=== PATIENT | female | born 1970 | race Caucasian/White ===

== ENCOUNTER → 2018-01-15 | Outpatient (CLI) | payer OTHER ==
--- NOTE | 2018-01-16 12:37 | MM ---
Reason for exam: screening (asymptomatic). Last mammogram was performed 2 years and 3 months ago. History: Family history of breast cancer in maternal grandmother at age 80 and breast cancer in maternal aunt at age 50. Physical Findings: A clinical breast exam by your physician is recommended on an annual basis and results should be correlated with mammographic findings. MG 3D Screening Mammo W/Cad Bilateral CC and MLO view(s) were taken. Prior study comparison: October 12, 2015, bilateral MG 3d screening mammo w/cad. September 10, 2013, bilateral digital screening mammo w/CAD. The breast tissue is extremely dense which could obscure a lesion on mammography. There is no discrete abnormality. No significant changes when compared with prior studies. ASSESSMENT: Benign, BI-RAD 2 RECOMMENDATION: Routine screening mammogram of both breasts in 1 year.
== END | disposition home or self-care (01) ==
LOC: RADMAMWWP 13:58
PROVIDERS: ATTEND Family Medicine
DX: Z12.31 Encounter for screening mammogram for malignant neoplasm of breast (principal)
CPT/HCPCS: 77063; 77067

== ENCOUNTER → 2018-10-30 | Outpatient (CLI) | payer OTHER ==
--- NOTE | 2018-10-30 15:14 | USB ---
Reason for exam: clinical finding. History: Family history of breast cancer in maternal grandmother at age 80 and breast cancer in maternal aunt at age 50. Physical Findings: Nurse Summary: 1cm movable nodule (nurse eze). US Breast LT Left complete breast ultrasound includes all four quadrants, the retroareolar region and axilla. Finding demonstrates a 1.1 x 0.6 x 1.1cm cystic lesion at 12 o'clock and a 0.5 x 0.2 x 0.4cm cystic lesion too small to characterize at 2 o'clock. These results were verbally communicated with the patient and result sheet given to the patient on 10/30/18. ASSESSMENT: Benign, BI-RAD 2 RECOMMENDATION: Return to routine screening mammogram schedule for both breasts. Back on schedule for December 2018.
== END | disposition home or self-care (01) ==
LOC: RADUSWWP 14:03
PROVIDERS: ATTEND Family Medicine
DX: N64.4 Mastodynia (principal)

== ENCOUNTER → 2019-02-25 | Outpatient (CLI) | payer OTHER ==
--- NOTE | 2019-02-27 09:28 | MM ---
Reason for exam: screening (asymptomatic). Last mammogram was performed 1 year and 1 month ago. History: Family history of breast cancer in maternal grandmother at age 80 and breast cancer in maternal aunt at age 50. Physical Findings: A clinical breast exam by your physician is recommended on an annual basis and results should be correlated with mammographic findings. MG 3D Screening Mammo W/Cad Bilateral CC and MLO view(s) were taken. Prior study comparison: January 15, 2018, bilateral MG 3d screening mammo w/cad. October 12, 2015, bilateral MG 3d screening mammo w/cad. The breast tissue is extremely dense which could obscure a lesion on mammography. No significant changes when compared with prior studies. ASSESSMENT: Benign, BI-RAD 2 RECOMMENDATION: Routine screening mammogram of both breasts in 1 year.
== END | disposition home or self-care (01) ==
LOC: RADMAMWWP 14:56
PROVIDERS: ATTEND Family Medicine
DX: Z12.31 Encounter for screening mammogram for malignant neoplasm of breast (principal)
CPT/HCPCS: 77063; 77067

== ENCOUNTER 2019-11-19 16:50 | Observation (INO) | payer OTHER ==
[2019-11-19] MEDS ORDERED: SODIUM CHLORIDE 0.9% 1,000 ML IV STA ×2 (17:13)
[2019-11-19] MEDS ORDERED: ONDANSETRON 4 MG/2 ML VIAL IVP STA (17:13)
[2019-11-19] MEDS ORDERED: HYDROmorphone 1 MG/ML 1 ML SYRINGE IVP STA ×2 (17:13→19:03)
[2019-11-19] MEDS ORDERED: PANTOPRAZOLE 40 MG/10 ML VIAL IVP STA (17:13)
[2019-11-19 17:27] LABS: Basophils # (A) 0.1 k/uL (0-0.2); Basophils % (A) 1 %; Eosinophils # (A) 0.5 k/uL (0-0.7); Eosinophils % (A) 4 %; HCT 42.5 % (34.0-46.0); HGB 13.8 gm/dL (11.4-16.0); Lymphocytes # (A) 3.9 k/uL (1.0-4.8); Lymphocytes % (A) 30 %; MCH 28.2 pg (25.0-35.0); MCHC 32.3 g/dL (31.0-37.0); MCV 87.3 fL (80.0-100.0); Mean Platelet Volume 8.7; Monocytes # (A) 0.5 k/uL (0-1.0); Monocytes % (A) 4 %; Neutrophils # (A) 8.1 k/uL (1.3-7.7); Neutrophils % (A) 62 %; Platelet Count 354 k/uL (150-450); RBC 4.88 m/uL (3.80-5.40); RDW 12.9 % (11.5-15.5)
--- NOTE | 2019-11-19 17:31 | ED ---
Abdominal Pain HPI <Elfego Isaac - Last Filed: 11/19/19 20:54> - General Source: patient, RN notes reviewed, old records reviewed Mode of arrival: wheelchair Limitations: no limitations <Darcy Elizabeth - Last Filed: 11/20/19 15:35> - General Chief Complaint: Abdominal Pain Stated Complaint: Abd Pain Time Seen by Provider: 11/19/19 16:59 - History of Present Illness Initial Comments: This Patient is a 49-year-old female who presents emergency department today for evaluation with severe right upper quadrant abdominal pain cramping. She reports pain with extending the diaphragm and taking a deep breath. She reports the pain seems to be worse after eating. She states that he became acutely w orse after eating spaghetti last night. Patient denies any fevers or chills. Does complain of some mild nausea. She denies any significant changes in urine or bowel habits. Patient's surgical history includes hysterectomy. (Darcy Elizabeth) - Related Data Home Medications Medication Instructions Recorded Confirmed Albuterol Nebulized [Ventolin 2.5 mg INHALATION RT-TID PRN 11/19/19 11/19/19 Nebulized] Diphenox-Atrop 2.5-0.025 mg 1 tab PO QID PRN 11/19/19 11/19/19 [Lomotil] Levocetirizine Dihydrochloride 5 mg PO DAILY 11/19/19 11/19/19 [Xyzal] Montelukast [Singulair] 10 mg PO DAILY 11/19/19 11/19/19 Allergies Allergy/AdvReac Type Severity Reaction Status Date / Time almond Allergy Anaphylaxis Verified 11/19/19 20:56 cashew nut Allergy Anaphylaxis Verified 11/19/19 20:56 shellfish derived [Shellfish] Allergy Anaphylaxis Verified 11/19/19 20:56 Review of Systems ROS Other: All systems not noted in ROS Statement are negative. <Elfego Isaac - Last Filed: 11/19/19 20:54> ROS Other: All systems not noted in ROS Statement are negative. <Darcy Elizabeth - Last Filed: 11/20/19 15:35> ROS Statement: Those systems with pertinent positive or pertinent negative responses have been documented in the HPI. Past Medical History Past Medical History: Asthma Additional Past Medical History / Comment(s): seasonal allgeries, diarrhea History of Any Multi-Drug Resistant Organisms: None Reported Past Surgical History: Ear Surgery, Hysterectomy Past Psychological History: No Psychological Hx Reported Smoking Status: Never smoker Past Alcohol Use History: None Reported Past Drug Use History: None Reported <Darcy Elizabeth - Last Filed: 11/20/19 15:35> General Exam Limitations: no limitations General appearance: alert, in no apparent distress Head exam: Present: atraumatic, normocephalic, normal inspection Eye exam: Present: normal appearance, PERRL, EOMI. Absent: scleral icterus, conjunctival injection, periorbital swelling ENT exam: Present: normal exam, mucous membranes moist Neck exam: Present: normal inspection. Absent: tenderness, meningismus, lymphadenopathy Respiratory exam: Present: normal lung sounds bilaterally. Absent: respiratory distress, wheezes, rales, rhonchi, stridor Cardiovascular Exam: Present: regular rate, normal rhythm, normal heart sounds. Absent: systolic murmur, diastolic murmur, rubs, gallop, clicks GI/Abdominal exam: Present: soft, tenderness (Right upper quadrant tenderness), normal bowel sounds. Absent: distended, guarding, rebound, rigid Extremities exam: Present: normal inspection, full ROM, normal capillary refill. Absent: tenderness, pedal edema, joint swelling, calf tenderness Back exam: Present: normal inspection Neurological exam: Present: alert, oriented X3, CN II-XII intact Psychiatric exam: Present: normal affect, normal mood Skin exam: Present: warm, dry, intact, normal color. Absent: rash <MeshakatymagyDarcy - Last Filed: 11/20/19 15:35> Course Vital Signs 11/19/19 11/19/19 16:51 20:55 Temperature 98.4 F 98.4 F Pulse Rate 103 H 78 Respiratory 18 16 Rate Blood Pressure 139/86 129/78 O2 Sat by Pulse 100 98 Oximetry Medical Decision Making - Lab Data Result diagrams: 11/19/19 17:10 11/19/19 17:10 <Elfego Isaac - Last Filed: 11/19/19 20:54> - Lab Data Result diagrams: 11/19/19 17:10 11/19/19 17:10 - Radiology Data Radiology results: report reviewed <Darcy Elizabeth - Last Filed: 11/20/19 15:35> - Medical Decision Making Patient is a 41-year-old female presents today for evaluation for 3 days of right upper quadrant abdominal pain, worse since last night. Patient received multiple doses of dilaudid and perstisted with something of pain. Labs are otherwise reviewed and unremarkable with persistent pain Patient had ultrasound which stated for any significant acute process. Patient had CT. CT results are pending at this time and Patient signed out Dr. Isaac. (Darcy Elizabeth) - Lab Data Lab Results 11/19/19 11/19/19 11/19/19 Range/Units 17:10 17:10 17:10 WBC 13.0 H (3.8-10.6) k/uL RBC 4.88 (3.80-5.40) m/uL Hgb 13.8 (11.4-16.0) gm/dL Hct 42.5 (34.0-46.0) % MCV 87.3 (80.0-100.0) fL MCH 28.2 (25.0-35.0) pg MCHC 32.3 (31.0-37.0) g/dL RDW 12.9 (11.5-15.5) % Plt Count 354 (150-450) k/uL Neutrophils % 62 % Lymphocytes % 30 % Monocytes % 4 % Eosinophils % 4 % Basophils % 1 % Neutrophils # 8.1 H (1.3-7.7) k/uL Lymphocytes # 3.9 (1.0-4.8) k/uL Monocytes # 0.5 (0-1.0) k/uL Eosinophils # 0.5 (0-0.7) k/uL Basophils # 0.1 (0-0.2) k/uL PT 9.5 (9.0-12.0) sec INR 0.9 (<1.2) APTT 23.7 (22.0-30.0) sec Sodium 138 (137-145) mmol/L Potassium 3.8 (3.5-5.1) mmol/L Chloride 101 (98-107) mmol/L Carbon Dioxide 29 (22-30) mmol/L Anion Gap 8 mmol/L BUN 10 (7-17) mg/dL Creatinine 0.75 (0.52-1.04) mg/dL Est GFR (CKD-EPI)AfAm >90 (>60 ml/min/1.73 sqM) Est GFR (CKD-EPI)NonAf >90 (>60 ml/min/1.73 sqM) Glucose 84 (74-99) mg/dL Calcium 9.7 (8.4-10.2) mg/dL Total Bilirubin 0.4 (0.2-1.3) mg/dL AST 18 (14-36) U/L ALT 15 (4-34) U/L Alkaline Phosphatase 62 (38-126) U/L Troponin I (0.000-0.034) ng/mL Total Protein 7.2 (6.3-8.2) g/dL Albumin 4.3 (3.5-5.0) g/dL Amylase 50 (30-110) U/L Lipase 73 (23-300) U/L Urine Color Urine Appearance (Clear) Urine pH (5.0-8.0) Ur Specific [place] (1.001-1.035) Urine Protein (Negative) Urine Glucose (UA) (Negative) Urine Ketones (Negative) Urine Blood (Negative) Urine Nitrite (Negative) Urine Bilirubin (Negative) Urine Urobilinogen (<2.0) mg/dL Ur Leukocyte Esterase (Negative) 11/19/19 11/19/19 Range/Units 17:10 18:34 WBC (3.8-10.6) k/uL RBC (3.80-5.40) m/uL Hgb (11.4-16.0) gm/dL Hct (34.0-46.0) % MCV (80.0-100.0) fL MCH (25.0-35.0) pg MCHC (31.0-37.0) g/dL RDW (11.5-15.5) % Plt Count (150-450) k/uL Neutrophils % % Lymphocytes % % Monocytes % % Eosinophils % % Basophils % % Neutrophils # (1.3-7.7) k/uL Lymphocytes # (1.0-4.8) k/uL Monocytes # (0-1.0) k/uL Eosinophils # (0-0.7) k/uL Basophils # (0-0.2) k/uL PT (9.0-12.0) sec INR (<1.2) APTT (22.0-30.0) sec Sodium (137-145) mmol/L Potassium (3.5-5.1) mmol/L Chloride (98-107) mmol/L Carbon Dioxide (22-30) mmol/L Anion Gap mmol/L BUN (7-17) mg/dL Creatinine (0.52-1.04) mg/dL Est GFR (CKD-EPI)AfAm (>60 ml/min/1.73 sqM) Est GFR (CKD-EPI)NonAf (>60 ml/min/1.73 sqM) Glucose (74-99) mg/dL Calcium (8.4-10.2) mg/dL Total Bilirubin (0.2-1.3) mg/dL AST (14-36) U/L ALT (4-34) U/L Alkaline Phosphatase (38-126) U/L Troponin I <0.012 (0.000-0.034) ng/mL Total Protein (6.3-8.2) g/dL Albumin (3.5-5.0) g/dL Amylase (30-110) U/L Lipase (23-300) U/L Urine Color Light Yellow Urine Appearance Clear (Clear) Urine pH 7.0 (5.0-8.0) Ur Specific [place] 1.008 (1.001-1.035) Urine Protein Negative (Negative) Urine Glucose (UA) Negative (Negative) Urine Ketones Negative (Negative) Urine Blood Negative (Negative) Urine Nitrite Negative (Negative) Urine Bilirubin Negative (Negative) Urine Urobilinogen <2.0 (<2.0) mg/dL Ur Leukocyte Esterase Negative (Negative) 11/19/19 18:35 EKG performed at 8:21 AM shows normal sinus rhythm and to add malate considering anterior ischemia. Ventricular rate of 90 bpm. Pulse 152 ms. QS duration 82 ms. QT QTc is 404/4 and 94 ms. (Darcy Elizabeth) - Radiology Data Ultrasound shows limited exam without distinct Normal he appreciated. Common bowel duct is 0.357 m. Gallbladder wall 0.29. Patient has positive Preston sign on ultrasound. (Darcy Elizabeth) Disposition Time of Disposition: 20:54 <Elfego Isaac - Last Filed: 11/19/19 20:54> <Darcy Elizabeth - Last Filed: 11/20/19 15:35> Clinical Impression: Right upper quadrant abdominal pain Disposition: ADMITTED IP TO THIS HOSP
[2019-11-19 17:36] LABS: INR 0.9 (<1.2); Partial Thromboplastin Time 23.7 sec (22.0-30.0); Prothrombin Time 9.5 sec (9.0-12.0)
[2019-11-19 17:38] LABS: ALT 15 U/L (4-34); AST 18 U/L (14-36); African American GFR (CKD) >90 (>60 ml/min/1.73 sqM); Albumin 4.3 g/dL (3.5-5.0); Alkaline Phosphatase 62 U/L (38-126); Amylase 50 U/L (30-110); Anion Gap 8 mmol/L; Blood Urea Nitrogen 10 mg/dL (7-17); Calcium 9.7 mg/dL (8.4-10.2); Carbon Dioxide 29 mmol/L (22-30); Chloride 101 mmol/L (98-107); Glucose 84 mg/dL (74-99); Non-African American GFR(CKD) >90 (>60 ml/min/1.73 sqM); Potassium 3.8 mmol/L (3.5-5.1); Sodium 138 mmol/L (137-145); Total Bilirubin 0.4 mg/dL (0.2-1.3); Total Protein 7.2 g/dL (6.3-8.2)
[2019-11-19 18:38] LABS: Appearance,Urine Clear (Clear); Bilirubin,Urine Negative (Negative); Blood,Urine Negative (Negative); Color,Urine Light Yellow; Glucose,Urine (UA) Negative (Negative); Ketones,Urine Negative (Negative); Leukocyte Esterase,Urine Negative (Negative); Nitrite,Urine Negative (Negative); Protein,Urine Negative (Negative); Specific Gravity,Urine 1.008 (1.001-1.035); Urobilinogen,Urine <2.0 mg/dL (<2.0)
--- NOTE | 2019-11-19 18:42 | US ---
EXAMINATION TYPE: US gallbladder DATE OF EXAM: 11/19/2019 COMPARISON: NONE CLINICAL HISTORY: RUQ pain. RUQ pain x 3 days. EXAM MEASUREMENTS: Liver Length: 16.2 cm Gallbladder Wall: 0.29 cm CBD: 0.35 cm Right Kidney: 10.4 x 5.1 x 4.4 cm Limited exam due to overlying bowel gas. Pancreas: Limited visibility Liver: No abnormalities seen at this time, slightly limited. Gallbladder: Limited due to gas. Evidence for sonographic Preston's sign: Yes CBD: Limited. Right Kidney: No hydronephrosis or masses seen IMPRESSION: 1. Limited examination without distinct abnormality appreciated.
[2019-11-19] MEDS ORDERED: methylPREDNISolone SOD SUCCI 125 MG/2 ML VIAL IV STA (19:10)
[2019-11-19] MEDS ORDERED: diphenhydrAMINE 50 MG/ML 1 ML VIAL IVP STA (19:10)
[2019-11-19] MEDS ORDERED: FAMOTIDINE 20 MG/2 ML VIAL IV STA (19:10)
--- NOTE | 2019-11-19 20:01 | CT ---
EXAMINATION TYPE: CT abdomen pelvis w con DATE OF EXAM: 11/19/2019 COMPARISON: None HISTORY: RUQ pain CT DLP: 1265.4 mGycm CONTRAST: CT scan of the abdomen and pelvis is performed without Oral Contrast and with IV Contrast, patient in jected with 100 mL of Isovue 300. FINDINGS: LUNG BASES-: No visible nodule. No infiltrate. Small fixed hiatal hernia. LIVER/GB: No calcified gallstones. No space occupying hepatic lesion. Biliary tree is of normal ca liber. PANCREAS: No inflammation. No distinct mass. SPLEEN: No splenic enlargement. No lesion seen. ADRENALS: No nodule. No thickening. KIDNEYS/BLADDER: No hydronephrosis. No nephrolithiasis. No distinct renal mass. Urinary bladder g rossly unremarkable. BOWEL: Normal appendix. Normal bowel caliber. No inflammation. GENITAL ORGANS: No gross abnormality. LYMPH NODES: No greater than 1cm abdominal or pelvic lymph nodes are appreciated. AORTA: No significant abnormality. OSSEOUS STRUCTURES: No significant abnormality is seen. OTHER: No significant additional abnormality is seen. IMPRESSION: 1. No acute process identified at this time.
[2019-11-19] MEDS ORDERED: SODIUM CHLORIDE 0.9% 1,000 ML IV ONE (20:54)
[2019-11-19] MEDS ORDERED: ONDANSETRON 4 MG/2 ML VIAL IVP PRN (20:55)
[2019-11-19] MEDS: HYDROmorphone 1 MG/ML 1 ML SYRINGE IVP PRN (22:54)
[2019-11-20] MEDS: HYDROmorphone 1 MG/ML 1 ML SYRINGE IVP PRN ×2 (04:51→13:10)
[2019-11-20] MEDS ORDERED: KETOROLAC 30 MG/ML 1 ML VIAL IVP PRN (09:37)
--- NOTE | 2019-11-20 09:38 | P.GSHP ---
<Thuy Loomis A - Last Filed: 11/20/19 09:32> History of Present Illness H&P Date: 11/20/19 Chief Complaint: Abdominal pain CHIEF COMPLAINT: Abdominal pain HISTORY OF PRESENT ILLNESS: 49-year-old female who presented to the emergency room with chief complaint of abdominal pain. Patient reports she began having abdominal pain Sunday evening after dinner. She reports eating baked chicken and broccoli for dinner. She states her pain got a little bit better Sunday but by Sunday afternoon was excruciating. She states initially she thought this was related to heartburn and took some Tums. She continues to report right upper quadrant pain is morning. She states the pain is worse when she takes a deep breath. She reports mild nausea this morning. Denies vomiting. Denies diarrhea or constipation. Patient denies intolerance to gre asy or fatty foods. She denies previous gallbladder issues or family history of gallbladder disease. PAST MEDICAL HISTORY: See list. PAST SURGICAL HISTORY: See list. MEDICATIONS: See list. ALLERGIES: See list. SOCIAL HISTORY: No illicit drug use. REVIEW OF SYSTEMS: CONSTITUTIONAL: Denies fever or chills. HEENT: Denies blurred vision, vision changes, or eye pain. Denies hemoptysis ENDOCRINE: Denies heat or cold intolerance. CARDIOVASCULAR: Denies chest pain or pressure. RESPIRATORY: No shortness of breath. GASTROINTESTINAL: See HPI for pertinent findings NEURO: Denies history of seizures. PSYCH: No depression or suicidal ideation HEMATOLOGIC: Denies bleeding disorders. LYMPHATIC: The patient denies any lumps and bumps around the neck. GENITOURINARY: Denies any blood in urine or increased urinary frequency. MUSCULOSKELETAL: Denies myalgias. Denies joint swelling. Denies decreased range of motion beyond patients baseline. SKIN: Denies pruitis. Denies rash. PHYSICAL EXAM: VITAL SIGNS: Reviewed GENERAL: Well-developed in no acute distress. HEENT: No sclera icterus. Extraocular movements grossly intact. Moist buccal mucosa. Head is atraumatic, normocephalic. Hears conversational speech. No nasal drainage. NECK: Supple without lymphadenopathy. CHEST: Non-labored respirations and equal bilateral excursions. CARDIOVASCULAR: Regular rate with regular rhythm. Palpable 2+ radial pulses. ABDOMEN: Soft. Nondistended. Tenderness with palpation to right upper quadrant MUSCULOSKELETAL: No clubbing or cyanosis. NEUROLOGIC: No focal or lateralizing signs. Cranial nerves II through XII grossly intact. PSYCH: Appropriate affect. Alert and oriented to person, place and time. SKIN: Well perfused. Good skin turgor. LABORATORY DATA: WBC 13.0. Hemoglobin 13.8. Platelet count 354. Sodium 138. Potassium 3.8. BUN 10. Creatinine 0.75. Bilirubin 0.4. AST 18. ALT 15. IMAGING: Gallbladder ultrasound: Limited examination without distinct abnormality appreciated CT abdomen and pelvis: No calcified gallstones. No occupying hepatic lesion. Biliary tree is of normal caliber. No acute process identified. ASSESSMENT: 1. Right upper quadrant abdominal pain PLAN: -Nothing by mouth -Obtain HIDA scan with EF. Further recommendations pending results of HIDA scan Nurse practitioner note has been reviewed by physician. Signing provider agrees with the documented findings, assessment, and plan of care. Past Medical History Past Medical History: Asthma Additional Past Medical History / Comment(s): Allergies year round History of Any Multi-Drug Resistant Organisms: None Reported Past Surgical History: Ear Surgery, Hysterectomy Additional Past Surgical History / Comment(s): Right ear sinus infection - tube in place (approx. 3 years ago) Past Anesthesia/Blood Transfusion Reactions: No Reported Reaction Past Psychological History: No Psychological Hx Reported Smoking Status: Never smoker Past Alcohol Use History: None Reported Past Drug Use History: None Reported Medications and Allergies Home Medications Medication Instructions Recorded Confirmed Type Albuterol Nebulized [Ventolin 2.5 mg INHALATION RT-TID PRN 11/19/19 11/19/19 History Nebulized] Diphenox-Atrop 2.5-0.025 mg 1 tab PO QID PRN 11/19/19 11/19/19 History [Lomotil] Levocetirizine Dihydrochloride 5 mg PO DAILY 11/19/19 11/19/19 History [Xyzal] Montelukast [Singulair] 10 mg PO DAILY 11/19/19 11/19/19 History Allergies Allergy/AdvReac Type Severity Reaction Status Date / Time almond Allergy Anaphylaxis Verified 11/19/19 20:56 cashew nut Allergy Anaphylaxis Verified 11/19/19 20:56 shellfish derived [Shellfish] Allergy Anaphylaxis Verified 11/19/19 20:56 Surgical - Exam Vital Signs Temp Pulse Resp BP Pulse Ox 98.4 F 103 H 18 139/86 100 11/19/19 16:51 11/19/19 16:51 11/19/19 16:51 11/19/19 16:51 11/19/19 16:51 Results - Labs 11/19/19 17:10 11/19/19 17:10 Abnormal Lab Results - Last 24 Hours (Table) 11/19/19 Range/Units 17:10 WBC 13.0 H (3.8-10.6) k/uL Neutrophils # 8.1 H (1.3-7.7) k/uL Diabetes panel 11/19/19 Range/Units 17:10 Sodium 138 (137-145) mmol/L Potassium 3.8 (3.5-5.1) mmol/L Chloride 101 (98-107) mmol/L Carbon Dioxide 29 (22-30) mmol/L BUN 10 (7-17) mg/dL Creatinine 0.75 (0.52-1.04) mg/dL Glucose 84 (74-99) mg/dL Calcium 9.7 (8.4-10.2) mg/dL AST 18 (14-36) U/L ALT 15 (4-34) U/L Alkaline Phosphatase 62 (38-126) U/L Total Protein 7.2 (6.3-8.2) g/dL Albumin 4.3 (3.5-5.0) g/dL Calcium panel 11/19/19 Range/Units 17:10 Calcium 9.7 (8.4-10.2) mg/dL Albumin 4.3 (3.5-5.0) g/dL Pituitary panel 11/19/19 Range/Units 17:10 Sodium 138 (137-145) mmol/L Potassium 3.8 (3.5-5.1) mmol/L Chloride 101 (98-107) mmol/L Carbon Dioxide 29 (22-30) mmol/L BUN 10 (7-17) mg/dL Creatinine 0.75 (0.52-1.04) mg/dL Glucose 84 (74-99) mg/dL Calcium 9.7 (8.4-10.2) mg/dL Adrenal panel 11/19/19 Range/Units 17:10 Sodium 138 (137-145) mmol/L Potassium 3.8 (3.5-5.1) mmol/L Chloride 101 (98-107) mmol/L Carbon Dioxide 29 (22-30) mmol/L BUN 10 (7-17) mg/dL Creatinine 0.75 (0.52-1.04) mg/dL Glucose 84 (74-99) mg/dL Calcium 9.7 (8.4-10.2) mg/dL Total Bilirubin 0.4 (0.2-1.3) mg/dL AST 18 (14-36) U/L ALT 15 (4-34) U/L Alkaline Phosphatase 62 (38-126) U/L Total Protein 7.2 (6.3-8.2) g/dL Albumin 4.3 (3.5-5.0) g/dL <AurelioJoelle N - Last Filed: 11/20/19 19:16> History of Present Illness Patient seen and evaluated as above. CHIEF COMPLAINT: Right upper quadrant abdominal pain HISTORY OF PRESENT ILLNESS: The patient is a 49 year old female who reports almost a 3 day history of right upper quadrant and epigastric abdominal pain dull ache sensation. She denies any personal or family history of gallbladder disorder. She reports earlier having her HIDA scan that she had recurrent right upper quadrant abdominal pain for gallbladder assessment. Since being nothing by mouth and hospitalized, she reports her pain is still persistent. Additional diagnostic studies independently reviewed without any large gallstones identified. PAST MEDICAL HISTORY: See list. PAST SURGICAL HISTORY: See list. MEDICATIONS: See list. ALLERGIES: See list. SOCIAL HISTORY: See list. FAMILY HISTORY: See list. REVIEW OF ORGAN SYSTEMS: CONSTITUTIONAL: No fevers or chills. GASTROINTESTINAL: Has gastroesophageal reflux disease and intolerance to spicy foods PHYSICAL EXAM: VITALS: Reviewed CONSTITUTIONAL: Well developed and in no acute distress. EYES: Conjuctivae without sclera icterus. Pupils are equally round and reactive to light. Extraocular movements grossly intact. HEAD, EARS, NOSE, THROAT: Moist buccal mucosa. Head is atraumatic, normocephalic. Hears conversational speech. No nasal drainage. Good dentition. NECK: No JV distention. No thyroidomegaly. RESPIRATORY: Non-labored respirations and equal bilateral excursions. No gross wheezes. CARDIOVASCULAR: Regular rate and rhythm. Extremities without moderate edema. Palpable 2+ radial pulses. ABDOMEN: Soft. Non-tender. Nondistended. LYMPH: No neck lymphadenopathy. MUSCULOSKELETAL: Nail and fingers with good capillary refill. SKIN: Well perfused. NEUROLOGIC: Cranial nerves II through XII grossly intact. Sensation upper and extremities intact. No focal or lateralizing signs. PSYCH: Appropriate affect. Alert and oriented to person, place and time. Displays appropriate insight. CLINCAL LABS: Reviewed. WBC elevated at 13,000 IMAGING: Independently reviewed with normal stool burden along the ascending and transverse colon. No free air small bowel dilatation. Small diaphragmatic hiatal hernia midline identified of the stomach. This is my personal interpretation HIDA scan independently reviewed demonstrating contrast within the gallbladder without features of acute cholecystitis. RADIOLOGY: Report reviewed otherwise unremarkable for acute pathology. ASSESSMENT: 1. Right upper quadrant abdominal pain 2. Sphincter of Oddi dysfunction 3. Gallbladder disorder 4. Right upper quadrant abdominal pain 5. Hiatal hernia PLAN: 1. I reviewed with her the findings of all her studies including her HIDA scan which demonstrated normal ejection fraction however she does report having se radha abdominal pain from the injection fraction of the HIDA scan. This is likely consistent with a sphincter of Oddi dysfunction versus a gallbladder disorder. 2. Ideally cholecystectomy will help with symptoms however cannot be guaranteed to completely resolve her symptoms. With this discussion, patient elected for surgical intervention with cholecystectomy. 3. In the interim, low-fat diet. 4. DVT prophylaxis. 5. CBC and chemistries are being reordered. 6. Additionally, patient may also have overlapping etiology of abdominal pain from a hiatal hernia which is also described with the patient. Surgical - Exam Vital Signs Temp Pulse Resp BP Pulse Ox 98.4 F 103 H 18 139/86 100 11/19/19 16:51 11/19/19 16:51 11/19/19 16:51 11/19/19 16:51 11/19/19 16:51 Results - Labs 11/20/19 17:09 11/20/19 17:09 Abnormal Lab Results - Last 24 Hours (Table) 11/20/19 11/20/19 Range/Units 17:09 17:09 WBC 16.1 H (3.8-10.6) k/uL Neutrophils # 13.8 H (1.3-7.7) k/uL Sodium 135 L (137-145) mmol/L Glucose 122 H (74-99) mg/dL Diabetes panel 11/20/19 Range/Units 17:09 Sodium 135 L (137-145) mmol/L Potassium 4.5 (3.5-5.1) mmol/L Chloride 106 (98-107) mmol/L Carbon Dioxide 22 (22-30) mmol/L BUN 12 (7-17) mg/dL Creatinine 0.52 (0.52-1.04) mg/dL Glucose 122 H (74-99) mg/dL Calcium 8.6 (8.4-10.2) mg/dL AST 16 (14-36) U/L ALT 13 (4-34) U/L Alkaline Phosphatase 46 (38-126) U/L Total Protein 6.4 (6.3-8.2) g/dL Albumin 3.7 (3.5-5.0) g/dL Calcium panel 11/20/19 Range/Units 17:09 Calcium 8.6 (8.4-10.2) mg/dL Albumin 3.7 (3.5-5.0) g/dL Pituitary panel 11/20/19 Range/Units 17:09 Sodium 135 L (137-145) mmol/L Potassium 4.5 (3.5-5.1) mmol/L Chloride 106 (98-107) mmol/L Carbon Dioxide 22 (22-30) mmol/L BUN 12 (7-17) mg/dL Creatinine 0.52 (0.52-1.04) mg/dL Glucose 122 H (74-99) mg/dL Calcium 8.6 (8.4-10.2) mg/dL Adrenal panel 11/20/19 Range/Units 17:09 Sodium 135 L (137-145) mmol/L Potassium 4.5 (3.5-5.1) mmol/L Chloride 106 (98-107) mmol/L Carbon Dioxide 22 (22-30) mmol/L BUN 12 (7-17) mg/dL Creatinine 0.52 (0.52-1.04) mg/dL Glucose 122 H (74-99) mg/dL Calcium 8.6 (8.4-10.2) mg/dL Total Bilirubin 0.6 (0.2-1.3) mg/dL AST 16 (14-36) U/L ALT 13 (4-34) U/L Alkaline Phosphatase 46 (38-126) U/L Total Protein 6.4 (6.3-8.2) g/dL Albumin 3.7 (3.5-5.0) g/dL
[2019-11-20] MEDS: PANTOPRAZOLE 40 MG/10 ML VIAL IVP SCH (13:09)
--- NOTE | 2019-11-20 14:42 | NM ---
EXAMINATION TYPE: NM hepatobiliary w CCK DATE OF EXAM: 11/20/2019 COMPARISON: NONE HISTORY: Right upper quadrant pain TECHNIQUE: After the intravenous administration of 4.2 mCi Tc 99m Mebrofenin hepatobiliary scintigrap hy is performed. Immediate images post injection. FINDINGS: There is satisfactory initial accumulation of tracer by the liver. The gallbladder is visualized wit hin 20 minutes. The small bowel activity is noted within 60 minutes. At one hour CCK was administer ed, patient was injected with .9 mcg of Kinevac, and gallbladder ejection fraction is calculated at 4 3 %, in the normal range. Therefore there is no scintigraphic evidence of cystic or common bile duct obstruction to suggest acute cholecystitis or gallbladder dyskinesia. IMPRESSION: Exam is within normal limits.
[2019-11-20] MEDS: SODIUM CHLORIDE 0.9% 1,000 ML IV SCH ×2 (15:36→21:45)
[2019-11-20] MEDS ORDERED: MIDAZOLAM 2 MG/2 ML VIAL IV PRN (16:41)
[2019-11-20] MEDS ORDERED: LIDOCAINE 1% (10MG/ML) FOR IV START INTRADERMA PRN (16:41)
[2019-11-20] MEDS ORDERED: HYDROmorphone 0.5 MG/0.5 ML SYRINGE IVP PRN (16:41)
[2019-11-20] MEDS ORDERED: LACTATED RINGERS 1,000 ML IV SCH (16:45)
[2019-11-20 17:39] LABS: Basophils % (A) 0 %; Eosinophils % (A) 0 %; HCT 40.6 % (34.0-46.0); HGB 12.7 gm/dL (11.4-16.0); Lymphocytes # (A) 1.8 k/uL (1.0-4.8); Lymphocytes % (A) 11 %; MCH 27.6 pg (25.0-35.0); MCHC 31.2 g/dL (31.0-37.0); MCV 88.4 fL (80.0-100.0); Mean Platelet Volume 8.5; Monocytes # (A) 0.4 k/uL (0-1.0); Monocytes % (A) 3 %; Neutrophils # (A) 13.8 k/uL (1.3-7.7); Neutrophils % (A) 86 %; Platelet Count 329 k/uL (150-450); RBC 4.59 m/uL (3.80-5.40); RDW 12.8 % (11.5-15.5); WBC 16.1 k/uL (3.8-10.6)
[2019-11-20 17:43] LABS: ALT 13 U/L (4-34); AST 16 U/L (14-36); African American GFR (CKD) >90 (>60 ml/min/1.73 sqM); Albumin 3.7 g/dL (3.5-5.0); Alkaline Phosphatase 46 U/L (38-126); Anion Gap 7 mmol/L; Blood Urea Nitrogen 12 mg/dL (7-17); Calcium 8.6 mg/dL (8.4-10.2); Carbon Dioxide 22 mmol/L (22-30); Chloride 106 mmol/L (98-107); Glucose 122 mg/dL (74-99); Non-African American GFR(CKD) >90 (>60 ml/min/1.73 sqM); Potassium 4.5 mmol/L (3.5-5.1); Sodium 135 mmol/L (137-145); Total Bilirubin 0.6 mg/dL (0.2-1.3); Total Protein 6.4 g/dL (6.3-8.2)
[2019-11-20] MEDS ORDERED: ACETAMINOPHEN TAB 325 MG TAB PO PRN (19:10)
[2019-11-20] MEDS ORDERED: PIPERACILLIN-TAZOBACTAM 3.375 GM in SODIUM CHLORIDE 0.9% 100 ML IVPB STA (19:17)
[2019-11-20] MEDS ORDERED: SODIUM CHLORIDE 0.9% 2,000 ML IV ONE (19:21)
[2019-11-20] MEDS ORDERED: SCOPOLAMINE 1.5MG/72HR PATCH TRANSDERM SCH (19:30)
[2019-11-20] MEDS: ACETAMINOPHEN TAB 500 MG TAB PO SCH ×2 (19:49→23:55)
[2019-11-20] MEDS: KETOROLAC 30 MG/ML 1 ML VIAL IVP SCH ×2 (19:49→23:56)
[2019-11-20] MEDS: PIPERACILLIN-TAZOBACTAM 3.375 GM in SODIUM CHLORIDE 0.9% 100 ML IVPB SCH (19:50)
[2019-11-21] MEDS: DEXAMETHASONE SOD PHOSPHATE 10 MG/ML 1 ML VIAL IV ONE ×2 (02:55→13:01)
[2019-11-21] MEDS: PIPERACILLIN-TAZOBACTAM 3.375 GM in SODIUM CHLORIDE 0.9% 100 ML IVPB SCH ×2 (03:36→11:14)
[2019-11-21] MEDS: ACETAMINOPHEN TAB 500 MG TAB PO SCH ×2 (05:12→11:13)
[2019-11-21] MEDS: KETOROLAC 30 MG/ML 1 ML VIAL IVP SCH ×2 (05:14→11:13)
[2019-11-21] MEDS: ONDANSETRON 4 MG/2 ML VIAL IVP ONE ×2 (05:14→13:01)
[2019-11-21] MEDS: SODIUM CHLORIDE 0.9% 1,000 ML IV SCH (05:15)
[2019-11-21] MEDS: PANTOPRAZOLE 40 MG/10 ML VIAL IVP SCH (07:35)
[2019-11-21 08:14] VITALS: RESP 16
[2019-11-21 09:39] LABS: Basophils % (A) 0 %; Eosinophils # (A) 0.2 k/uL (0-0.7); Eosinophils % (A) 2 %; HCT 38.6 % (34.0-46.0); HGB 12.6 gm/dL (11.4-16.0); Lymphocytes # (A) 3.2 k/uL (1.0-4.8); Lymphocytes % (A) 34 %; MCH 29.3 pg (25.0-35.0); MCHC 32.6 g/dL (31.0-37.0); Mean Platelet Volume 9.5; Monocytes # (A) 0.5 k/uL (0-1.0); Monocytes % (A) 5 %; Neutrophils # (A) 5.5 k/uL (1.3-7.7); Neutrophils % (A) 59 %; Platelet Count 286 k/uL (150-450); RBC 4.29 m/uL (3.80-5.40); RDW 13.2 % (11.5-15.5); WBC 9.4 k/uL (3.8-10.6)
[2019-11-21 09:56] LABS: ALT 12 U/L (4-34); AST 15 U/L (14-36); African American GFR (CKD) >90 (>60 ml/min/1.73 sqM); Albumin 3.1 g/dL (3.5-5.0); Alkaline Phosphatase 42 U/L (38-126); Anion Gap 4 mmol/L; Blood Urea Nitrogen 13 mg/dL (7-17); Carbon Dioxide 21 mmol/L (22-30); Chloride 111 mmol/L (98-107); Glucose 86 mg/dL (74-99); Non-African American GFR(CKD) >90 (>60 ml/min/1.73 sqM); Potassium 4.1 mmol/L (3.5-5.1); Sodium 136 mmol/L (137-145); Total Bilirubin 0.6 mg/dL (0.2-1.3); Total Protein 5.8 g/dL (6.3-8.2)
[2019-11-21] MEDS ORDERED: IV FLUID CONTINUATION 200 ML IV ONE (13:00)
[2019-11-21] MEDS ORDERED: HEPARIN SODIUM,PORCINE 5,000 UNIT/ML 1 ML VIAL SQ ONE (13:14)
[2019-11-21] MEDS ORDERED: INDOCYANINE GREEN 25 MG VIAL IV STA (13:15)
--- NOTE | 2019-11-21 13:15 | P.HPADDEND ---
H&P Addendum H&P Addendum Date: 11/21/19 Patient seen and evaluated. She still reports persistent right upper quadrant abdominal pain despite Toradol, Tylenol, antibiotics. WBC has improved. Benefits and risks of surgical intervention described regarding cholecystectomy. Patient still wished to proceed. We'll proceed with robotic cholecystectomy.
[2019-11-21] MEDS ORDERED: GLYCOPYRROLATE 0.2 MG/ML 2 ML VIAL ONE (13:18)
[2019-11-21] MEDS ORDERED: ROCURONIUM BROMIDE 10 MG/ML 5 ML VIAL IV ONE (13:18)
[2019-11-21] MEDS ORDERED: MIDAZOLAM 2 MG/2 ML VIAL ONE (13:18)
[2019-11-21] MEDS ORDERED: PROPOFOL 10 MG/ML 20 ML VIAL IV ONE (13:18)
[2019-11-21] MEDS ORDERED: fentaNYL (PF) 50 MCG/ML 2 ML AMP ONE (13:18)
[2019-11-21] MEDS ORDERED: LIDOCAINE 1% INJ 10MG/ML (20 ML MDV) ONE (13:18)
[2019-11-21] MEDS ORDERED: KETOROLAC 30 MG/ML 1 ML VIAL ONE (13:18)
[2019-11-21] MEDS ORDERED: SUCCINYLCHOLINE CHLORIDE VIAL 200 MG/10 ML VIAL IV ONE (13:18)
[2019-11-21] MEDS ORDERED: NEOSTIGMINE 1 MG/ML 10 ML VIAL ONE (13:18)
[2019-11-21] MEDS ORDERED: BUPIVACAIN-EPI 0.25%-1:200,000 30 ML VIAL SQ ONE (13:22)
[2019-11-21] MEDS ORDERED: LACTATED RINGERS 1,000 ML IV ONE (14:06)
[2019-11-21] MEDS ORDERED: NALOXONE 0.4 MG/ML 1 ML VIAL IV PRN (14:21)
[2019-11-21] MEDS ORDERED: HYDROcodone/APAP 5-325MG 1 EACH TAB PO PRN (14:21)
--- NOTE | 2019-11-21 14:21 | P.OP ---
Date of Procedure: 11/21/19 Description of Procedure: SURGEON: BLOSSOM ERICKSON MD PREOPERATIVE DIAGNOSES: 1. Right upper quadrant abdominal pain 2. Leukocytosis 3. Hiatal hernia 4. Gastroesophageal reflux disease 5. Seasonal ALLERGY 6. Irritable bowel syndrome 7. Gallbladder disorder POSTOPERATIVE DIAGNOSES: 1. Right upper quadrant abdominal pain 2. Leukocytosis 3. Hiatal hernia 4. Gastroesophageal reflux disease 5. Seasonal ALLERGY 6. Irritable bowel syndrome 7. Right upper quadrant intra-abdominal tumor 8. Acute and chronic cholecystitis OPERATION: 1. Robotic-assisted da Jarvis Xi laparoscopic cholecystectomy, multiport with FIREFLY ESTIMATED BLOOD LOSS: 5 mL. SPECIMENS REMOVED: Gallbladder. COMPLICATIONS: None. OPERATIVE FINDINGS: 1. Gallbladder wall edema consistent with acute and chronic cholecystitis 2. 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 Surgical intervention with a laparoscopic cholecystectomy was described. Robotic assisted laparoscopic approach was described. Benefits and risks of the procedure including but not limited to bleeding, infection, injury to the biliary tree was described. Informed consent was obtained. DESCRIPTION OF PROCEDURE: Patient was brought to the operating room, placed in supine position. After general induction, the abdomen had been prepped and draped in standard sterile fashion. The robotic da Jarvis XI system was primed. After a timeout protocol was performed, the patient had been prepped and draped in standard sterile fashion. The patient was injected with indocyanine green. A 5 mm 0 degrees laparoscopic trocar entry was performed along the left upper quadrant. The abdomen insufflated to 15 mmHg pressure which was tolerated well. Diagnostic laparoscopy demonstrated no injury to bowel viscera or mesentery. The liver surface was unremarkable. Next, two 8 mm robotic ports were placed along the right upper abdomen. The camera 8-mm port was maintained along the epigastrium. Another 8 mm port was placed along the left upper abdominal wall after exchanging the 5 mm port. Please note that the ports were placed at least 10 to 15 cm away from the target anatomy of the gallbladder. The robot was docked along the left lateral abdomen. The patient was repositioned in reverse Trendelenburg position. Using a grasper for arm 3, a grasper for arm 4, including hook cautery for arm 1, the robotic system was docked and primed as described. Instruments were interchanged by the therapeutic recreation assistant including hook cautery, Bovie cautery and clip appliers. I had sat at the console. A 3 cm tumor was identified at the right upper quadrant at the falciform ligament resembling an infarct of falciform ligament. The tumor was resected using hook cautery. Next attention was brought to the gallbladder. The gallbladder fundus was retracted over the dome of the liver. Initial attention was brought to the infundibulum including cystic lymph node. Initial dissection was performed over the cystic lymph node at the infundibulum using hook cautery. The infundibulum was retracted laterally to expose the cystic duct away from the common bile duct. The cystic duct including the cystic artery were dissected free from its surrounding tissue. FIREFLY was used to identify the cystic artery and cystic structures. A critical view of safety was obtained. Large PLASTIC clips were used throughout the entire case. Using a clip vegetable i farmworker, 2 clips were placed along the cystic duct away from the common bile duct. The cystic duct was divided between clips.. Next, the cystic artery was similarly clipped and cauterized. Electro-Bovie cautery was used to remove the gallbladder from the hepatic fossa. Hemostasis was checked and found to be adequate. The robot was undocked. I re-scrubbed into the case. Using a 10 mm Endo Catch bag via the left upper quadrant incision, the specimen was removed from the abdominal cavity. Sha Malik 0 Vicryl was used to close the fascial defect. All pneumoperitoneum instruments were evacuated from the abdominal cavity. The incisions were reapproximated using 4-0 Monocryl in an interrupted subcuticular fashion. Fascial defects were less than 8 mm in size. Please note along the trocar sites, local anesthetic was placed as a field block prior to insertion of all instruments. Liquid glue was applied to the skin. At the end of the procedure needle, sponge, and instrument count had been verified correct by the surgical technology instructor. The patient was transferred to postanesthesia care unit in stable condition. Intraoperative films were shared with the patient's family who were pleased with the level of care. Plan - Discharge Summary Discharge Rx Participant: No New Discharge Prescriptions: No Action Montelukast [Singulair] 10 mg PO DAILY Diphenox-Atrop 2.5-0.025 mg [Lomotil] 1 tab PO QID PRN PRN Reason: Diarrhea Albuterol Nebulized [Ventolin Nebulized] 2.5 mg INHALATION RT-TID PRN PRN Reason: Shortness Of Breath Levocetirizine Dihydrochloride [Xyzal] 5 mg PO DAILY Discharge Medication List Albuterol Nebulized [Ventolin Nebulized] 2.5 mg INHALATION RT-TID PRN 11/19/19 [History] Diphenox-Atrop 2.5-0.025 mg [Lomotil] 1 tab PO QID PRN 11/19/19 [History] Levocetirizine Dihydrochloride [Xyzal] 5 mg PO DAILY 11/19/19 [History] Montelukast [Singulair] 10 mg PO DAILY 11/19/19 [History] Follow up Appointment(s)/Referral(s): Jordan Campuzano MD [Primary Care Provider] - 1-2 days
--- NOTE | 2019-11-21 15:53 | P.DS ---
Providers Date of admission: 11/19/19 20:54 Expected date of discharge: 11/21/19 Attending physician: Joelle Carey Consults: 11/20/19 19:19 Consult Physician Routine Consulting Provider: [facility] Consult Reason/Comments: [facility] Do you want consulting provider notified?: Yes Primary care physician: Jordan Campuzano - Discharge Diagnosis(es) (1) Acute cholecystitis Current Visit: Yes Status: Acute (2) Intra-abdominal tumor Current Visit: Yes Status: Acute (3) Obesity (BMI 30.0-34.9) Current Visit: Yes Status: Acute (4) Irritable bowel syndrome Current Visit: Yes Status: Acute (5) Gastroesophageal reflux disease Current Visit: Yes Status: Acute (6) Hiatal hernia Current Visit: Yes Status: Acute (7) Asthma Current Visit: Yes Status: Acute (8) Right upper quadrant abdominal pain Current Visit: Yes Status: Acute (9) Leukocytosis Current Visit: Yes Status: Acute Hospital Course: The patient is a 5-year-old female who came in with at least 3 days' history of right upper quadrant abdominal pain. Diagnostic studies were performed including CT of the abdomen and pelvis, ultrasound, HIDA scan. During hospi talization white count elevated at 13-15,000. She reported worsening right upper quadrant abdominal pain. She also reported worsening pain with completion of her HIDA scan. She was started on IV antibiotics including nonnarcotic pain medication. She still continued to have right upper quadrant abdominal pain. Her features were consistent with clinical gallbladder disorder. Surgical intervention was described. Patient elected to undergo cholecystectomy. After operation, patient reported improvement of her right upper quadrant abdominal pain. Intraoperative findings including a intra-abdominal tumor were described. She had voided spontaneously. Discharge instructions were reviewed. Patient was stable for discharge. Patient Condition at Discharge: Good Plan - Discharge Summary Discharge Rx Participant: No New Discharge Prescriptions: New Ibuprofen [Motrin] 600 mg PO Q8HR PRN #30 tab PRN Reason: Pain Acetaminophen Tab [Tylenol Tab] 1,000 mg PO Q6HR PRN #30 tablet PRN Reason: Pain Continue Montelukast [Singulair] 10 mg PO DAILY Diphenox-Atrop 2.5-0.025 mg [Lomotil] 1 tab PO QID PRN PRN Reason: Diarrhea Albuterol Nebulized [Ventolin Nebulized] 2.5 mg INHALATION RT-TID PRN PRN Reason: Shortness Of Breath Levocetirizine Dihydrochloride [Xyzal] 5 mg PO DAILY Discharge Medication List Albuterol Nebulized [Ventolin Nebulized] 2.5 mg INHALATION RT-TID PRN 11/19/19 [History] Diphenox-Atrop 2.5-0.025 mg [Lomotil] 1 tab PO QID PRN 11/19/19 [History] Levocetirizine Dihydrochloride [Xyzal] 5 mg PO DAILY 11/19/19 [History] Montelukast [Singulair] 10 mg PO DAILY 11/19/19 [History] Acetaminophen Tab [Tylenol Tab] 1,000 mg PO Q6HR PRN #30 tablet 11/21/19 [Rx] Ibuprofen [Motrin] 600 mg PO Q8HR PRN #30 tab 11/21/19 [Rx] Follow up Appointment(s)/Referral(s): Jordan Campuzano MD [Primary Care Provider] - 1-2 days (YOU WILL NEED TO CALL TO SCHEDULE YOUR FOLLOW UP APPOINTMENT) Joelle Carey MD [STAFF PHYSICIAN] - 11/25/19 (Telehealth) Patient Instructions/Handouts: *Surgery [facility] - (Anesthesia) Discharge Instructions Outpatient Surgery, Scopolamine (Absorbed through the skin), Laparoscopic Cholecystectomy (DC) Activity/Diet/Wound Care/Special Instructions: REMOVE PATCH ON SUNDAY, NOVEMBER 22 No lifting over 10 pounds in 2 weeks until December 04October shower. No bath tub soaks for two weeks until December 04 Diet as tolerated. No driving while on narcotics. Use Tylenol and ibuprofen or Aleve scheduled for the next 24-48 hours for best pain relief. Use ice along incisions for the today to prevent swelling. Discharge Disposition: HOME SELF-CARE
[2019-11-21 15:55] VITALS: BP 129/75; PULSE 65; TEMP 97.3
[2019-11-21] MEDS ORDERED: HEPARIN SODIUM,PORCINE 5,000 UNIT/ML 1 ML VIAL SQ SCH (21:00)
== END 2019-11-21 16:38 | disposition home or self-care (01) ==
LOC: EC 16:50 → 4SSUR 20:54 → 6PED 11-21 12:55
PROVIDERS: ADMIT Surgery Plastic and Reconstructive Surgery; ATTEND Surgery Plastic and Reconstructive Surgery
DX: K81.2 Acute cholecystitis with chronic cholecystitis (principal); D49.89 Neoplasm of unspecified behavior of other specified sites; E66.9 Obesity, unspecified; Z68.32 Body mass index [BMI] 32.0-32.9, adult; K58.9 Irritable bowel syndrome, unspecified; K21.9 Gastro-esophageal reflux disease without esophagitis; K83.4 Spasm of sphincter of Oddi; K44.9 Diaphragmatic hernia without obstruction or gangrene; J45.909 Unspecified asthma, uncomplicated; Z90.710 Acquired absence of both cervix and uterus; Z79.899 Other long term (current) drug therapy; Z91.018 Allergy to other foods; Z91.013 Allergy to seafood; Z11.59 Encounter for screening for other viral diseases
CPT/HCPCS: 47562; 96376 ×3; 96361 ×3; 96374; 96375; 99285; 36415; 93005; 88304; 80053 ×3; 82150; 83690; 84484; 85025 ×3; 85610; 85730; 81003; 87635; 76705; 74177; 78227; G0378 ×4; A9537; J2543 ×2; J2250; J0330; J1200; J1644; J1100; J2710; J2930; J0690; J2405 ×3; J2805; J2001; J3010; J1885 ×2; J1170 ×2; J2704; C9113 ×3; Q9967

== ENCOUNTER 2019-11-27 03:02 | Emergency (ER) | payer OTHER ==
[2019-11-27 03:12] VITALS: RESP 18; TEMP 98
--- NOTE | 2019-11-27 04:00 | ED ---
Abdominal Pain HPI - General Chief Complaint: Abdominal Pain Stated Complaint: post op abd pain Time Seen by Provider: 11/27/19 03:24 Source: patient, family Mode of arrival: ambulatory Limitations: no limitations - History of Present Illness Initial Comments: This patient is a 49-year-old woman presenting to be evaluated for right upper quadrant pain that she states is similar to the pain she was having before having cholecystectomy. Patient states that she had the procedure here on November 20, with Dr. Carey. She had been doing well until the symptoms recurred this afternoon actually 12 hours ago. Denies accompanying symptoms. She states that she spoke with Dr. Aurelio conner and was recommended to be evaluated here. Complaint: abdominal pain Onset/Timin -: hour(s) Location: RUQ Radiation: none Migration to: no migration Severity: moderate Quality: aching Consistency: constant Improves With: nothing Worsens With: movement - Related Data Home Medications Medication Instructions Recorded Confirmed Albuterol Nebulized [Ventolin 2.5 mg INHALATION RT-TID PRN 11/19/19 11/19/19 Nebulized] Diphenox-Atrop 2.5-0.025 mg 1 tab PO QID PRN 11/19/19 11/19/19 [Lomotil] Levocetirizine Dihydrochloride 5 mg PO DAILY 11/19/19 11/19/19 [Xyzal] Montelukast [Singulair] 10 mg PO DAILY 11/19/19 11/19/19 Previous Rx's Medication Instructions Recorded Acetaminophen Tab [Tylenol Tab] 1,000 mg PO Q6HR PRN #30 tablet 11/21/19 Ibuprofen [Motrin] 600 mg PO Q8HR PRN #30 tab 11/21/19 traMADol HCl [Ultram] 50 mg PO Q6H PRN #12 tab 11/27/19 Allergies Allergy/AdvReac Type Severity Reaction Status Date / Time almond Allergy Anaphylaxis Verified 11/19/19 20:56 cashew nut Allergy Anaphylaxis Verified 11/19/19 20:56 shellfish derived [Shellfish] Allergy Anaphylaxis Verified 11/19/19 20:56 Review of Systems ROS Statement: Those systems with pertinent positive or pertinent negative responses have been documented in the HPI. ROS Other: All systems not noted in ROS Statement are negative. Constitutional: Denies: fever, chills Respiratory: Denies: cough, dyspnea Cardiovascular: Denies: chest pain, palpitations, orthopnea, edema Gastrointestinal: Reports: abdominal pain. Denies: nausea, vomiting, diarrhea, constipation, melena, hematochezia Genitourinary: Denies: dysuria, hematuria Musculoskeletal: Denies: back pain Skin: Denies: rash Neurological: Denies: headache Past Medical History Past Medical History: Asthma Additional Past Medical History / Comment(s): seasonal allgeries, diarrhea History of Any Multi-Drug Resistant Organisms: None Reported Past Surgical History: Cholecystectomy, Ear Surgery, Hysterectomy Additional Past Surgical History / Comment(s): Right ear sinus infection - tube in place (approx. 3 years ago) Past Anesthesia/Blood Transfusion Reactions: No Reported Reaction Past Psychological History: No Psychological Hx Reported Smoking Status: Never smoker Past Alcohol Use History: None Reported Past Drug Use History: None Reported General Exam Limitations: no limitations General appearance: alert, in no apparent distress Eye exam: Present: normal appearance. Absent: scleral icterus, conjunctival injection ENT exam: Present: normal oropharynx Respiratory exam: Present: normal lung sounds bilaterally. Absent: respiratory distress, wheezes, rales, rhonchi, stridor Cardiovascular Exam: Present: regular rate, normal rhythm, normal heart sounds. Absent: systolic murmur, diastolic murmur, rubs, gallop GI/Abdominal exam: Present: soft, tenderness (Mild right upper quadrant t enderness without rebound or guarding), normal bowel sounds, other (Patient's surgical incisions are clean dry and intact without any abnormal erythema or warmth.). Absent: distended, guarding, rebound, rigid, mass, pulsatile mass, hernia Extremities exam: Present: normal inspection, normal capillary refill. Absent: pedal edema, calf tenderness Back exam: Present: normal inspection. Absent: CVA tenderness (R), CVA tenderness (L) Neurological exam: Present: alert Skin exam: Present: warm, dry, intact, normal color. Absent: rash Course Vital Signs 11/27/19 03:06 Temperature 98 F Pulse Rate 86 Respiratory 18 Rate Blood Pressure 139/80 O2 Sat by Pulse 100 Oximetry Medical Decision Making - Lab Data Result diagrams: 11/27/19 03:31 11/27/19 03:31 Lab Results 11/27/19 11/27/19 11/27/19 Range/Units 03:31 03:31 03:31 WBC 10.6 (3.8-10.6) k/uL RBC 4.46 (3.80-5.40) m/uL Hgb 13.4 (11.4-16.0) gm/dL Hct 38.1 (34.0-46.0) % MCV 85.4 (80.0-100.0) fL MCH 29.9 (25.0-35.0) pg MCHC 35.1 (31.0-37.0) g/dL RDW 13.4 (11.5-15.5) % Plt Count 316 (150-450) k/uL Neutrophils % 65 % Lymphocytes % 27 % Monocytes % 3 % Eosinophils % 4 % Basophils % 0 % Neutrophils # 6.9 (1.3-7.7) k/uL Lymphocytes # 2.9 (1.0-4.8) k/uL Monocytes # 0.3 (0-1.0) k/uL Eosinophils # 0.4 (0-0.7) k/uL Basophils # 0.0 (0-0.2) k/uL Sodium 135 L (137-145) mmol/L Potassium 4.2 (3.5-5.1) mmol/L Chloride 105 (98-107) mmol/L Carbon Dioxide 22 (22-30) mmol/L Anion Gap 8 mmol/L BUN 13 (7-17) mg/dL Creatinine 0.51 L (0.52-1.04) mg/dL Est GFR (CKD-EPI)AfAm >90 (>60 ml/min/1.73 sqM) Est GFR (CKD-EPI)NonAf >90 (>60 ml/min/1.73 sqM) Glucose 104 H (74-99) mg/dL Calcium 9.4 (8.4-10.2) mg/dL Total Bilirubin 0.4 (0.2-1.3) mg/dL AST 20 (14-36) U/L ALT 16 (4-34) U/L Alkaline Phosphatase 50 (38-126) U/L C-Reactive Protein 14.3 H (<10.0) mg/L Total Protein 6.5 (6.3-8.2) g/dL Albumin 3.8 (3.5-5.0) g/dL Amylase 56 (30-110) U/L Lipase 194 (23-300) U/L Urine Color Light Yellow Urine Appearance Clear (Clear) Urine pH 6.5 (5.0-8.0) Ur Specific [place] 1.005 (1.001-1.035) Urine Protein Negative (Negative) Urine Glucose (UA) Negative (Negative) Urine Ketones Negative (Negative) Urine Blood Negative (Negative) Urine Nitrite Negative (Negative) Urine Bilirubin Negative (Negative) Urine Urobilinogen <2.0 (<2.0) mg/dL Ur Leukocyte Esterase Negative (Negative) Urine HCG, Qual (Not Detectd) 11/27/19 Range/Units 03:31 WBC (3.8-10.6) k/uL RBC (3.80-5.40) m/uL Hgb (11.4-16.0) gm/dL Hct (34.0-46.0) % MCV (80.0-100.0) fL MCH (25.0-35.0) pg MCHC (31.0-37.0) g/dL RDW (11.5-15.5) % Plt Count (150-450) k/uL Neutrophils % % Lymphocytes % % Monocytes % % Eosinophils % % Basophils % % Neutrophils # (1.3-7.7) k/uL Lymphocytes # (1.0-4.8) k/uL Monocytes # (0-1.0) k/uL Eosinophils # (0-0.7) k/uL Basophils # (0-0.2) k/uL Sodium (137-145) mmol/L Potassium (3.5-5.1) mmol/L Chloride (98-107) mmol/L Carbon Dioxide (22-30) mmol/L Anion Gap mmol/L BUN (7-17) mg/dL Creatinine (0.52-1.04) mg/dL Est GFR (CKD-EPI)AfAm (>60 ml/min/1.73 sqM) Est GFR (CKD-EPI)NonAf (>60 ml/min/1.73 sqM) Glucose (74-99) mg/dL Calcium (8.4-10.2) mg/dL Total Bilirubin (0.2-1.3) mg/dL AST (14-36) U/L ALT (4-34) U/L Alkaline Phosphatase (38-126) U/L C-Reactive Protein (<10.0) mg/L Total Protein (6.3-8.2) g/dL Albumin (3.5-5.0) g/dL Amylase (30-110) U/L Lipase (23-300) U/L Urine Color Urine Appearance (Clear) Urine pH (5.0-8.0) Ur Specific [place] (1.001-1.035) Urine Protein (Negative) Urine Glucose (UA) (Negative) Urine Ketones (Negative) Urine Blood (Negative) Urine Nitrite (Negative) Urine Bilirubin (Negative) Urine Urobilinogen (<2.0) mg/dL Ur Leukocyte Esterase (Negative) Urine HCG, Qual Not Detected (Not Detectd) Disposition Clinical Impression: Abdominal pain Disposition: HOME SELF-CARE Condition: Good Instructions (If sedation given, give patient instructions): Abdominal Pain (ED) Prescriptions: traMADol HCl [Ultram] 50 mg PO Q6H PRN #12 tab PRN Reason: Pain Is patient prescribed a controlled substance at d/c from ED?: No Referrals: Joelle Carey MD [STAFF PHYSICIAN] - 1-2 days
[2019-11-27] MEDS ORDERED: HYDROmorphone 0.5 MG/0.5 ML SYRINGE IVP STA (04:46)
[2019-11-27 05:06] LABS: Appearance,Urine Clear (Clear); Basophils % (A) 0 %; Bilirubin,Urine Negative (Negative); Blood,Urine Negative (Negative); Color,Urine Light Yellow; Eosinophils # (A) 0.4 k/uL (0-0.7); Eosinophils % (A) 4 %; Glucose,Urine (UA) Negative (Negative); HCT 38.1 % (34.0-46.0); HGB 13.4 gm/dL (11.4-16.0); Ketones,Urine Negative (Negative); Leukocyte Esterase,Urine Negative (Negative); Lymphocytes # (A) 2.9 k/uL (1.0-4.8); Lymphocytes % (A) 27 %; MCH 29.9 pg (25.0-35.0); MCHC 35.1 g/dL (31.0-37.0); MCV 85.4 fL (80.0-100.0); Mean Platelet Volume 9.6; Monocytes # (A) 0.3 k/uL (0-1.0); Monocytes % (A) 3 %; Neutrophils # (A) 6.9 k/uL (1.3-7.7); Neutrophils % (A) 65 %; Nitrite,Urine Negative (Negative); PH, Urine 6.5 (5.0-8.0); Platelet Count 316 k/uL (150-450); Protein,Urine Negative (Negative); RBC 4.46 m/uL (3.80-5.40); RDW 13.4 % (11.5-15.5); Specific Gravity,Urine 1.005 (1.001-1.035); Urobilinogen,Urine <2.0 mg/dL (<2.0); WBC 10.6 k/uL (3.8-10.6)
[2019-11-27 05:50] LABS: ALT 16 U/L (4-34); AST 20 U/L (14-36); African American GFR (CKD) >90 (>60 ml/min/1.73 sqM); Albumin 3.8 g/dL (3.5-5.0); Alkaline Phosphatase 50 U/L (38-126); Amylase 56 U/L (30-110); Anion Gap 8 mmol/L; Blood Urea Nitrogen 13 mg/dL (7-17); C Reactive Protein 14.3 mg/L (<10.0); Calcium 9.4 mg/dL (8.4-10.2); Carbon Dioxide 22 mmol/L (22-30); Chloride 105 mmol/L (98-107); Glucose 104 mg/dL (74-99); Non-African American GFR(CKD) >90 (>60 ml/min/1.73 sqM); Potassium 4.2 mmol/L (3.5-5.1); Sodium 135 mmol/L (137-145); Total Bilirubin 0.4 mg/dL (0.2-1.3); Total Protein 6.5 g/dL (6.3-8.2)
[2019-11-27] MEDS ORDERED: SODIUM CHLORIDE 0.9% 1,000 ML IV ONE (06:06)
[2019-11-27 08:18] VITALS: BP 144/84; PULSE 80
== END 2019-11-27 08:15 | disposition home or self-care (01) ==
LOC: EC 03:02
DX: R10.11 Right upper quadrant pain (principal); J45.909 Unspecified asthma, uncomplicated; Z79.51 Long term (current) use of inhaled steroids; Z91.018 Allergy to other foods; Z91.013 Allergy to seafood; Z90.49 Acquired absence of other specified parts of digestive tract; Z90.710 Acquired absence of both cervix and uterus
CPT/HCPCS: 36415; 80053; 81003; 81025; 82150; 83690; 85025; 86140; 96361; 96374; 99284

== ENCOUNTER 2019-12-31 07:06 | Day surgery (SDC) | payer OTHER ==
[2019-12-30 09:14] VITALS: BMI 31.7
[~2019-12-31 07:06] MED LIST: LACTATED RINGERS 1,000 ML IV SCH
[2019-12-31 07:28] VITALS: TEMP 98.1
[2019-12-31] MEDS ORDERED: LACTATED RINGERS 1,000 ML IV ONE (07:45)
[2019-12-31] MEDS ORDERED: LIDOCAINE 1% INJ 10MG/ML (20 ML MDV) ONE (08:02)
[2019-12-31] MEDS ORDERED: PROPOFOL 10 MG/ML 20 ML VIAL IV ONE (08:02)
--- NOTE | 2019-12-31 08:07 | P.GSHP ---
History of Present Illness H&P Date: 12/31/19 CHIEF COMPLAINT: GERD and change in bowel habits HISTORY OF PRESENT ILLNESS: The patient is a 49-year-old female who presents with gastroesophageal reflux disease and change in bowel habits and family history of colon cancer. Upper and lower endoscopy were offered for further evaluation and management. PAST MEDICAL HISTORY: Please see list. PAST SURGICAL HISTORY: Please see list. MEDICATIONS: Please see list. ALLERGIES: Please see list. SOCIAL HISTORY: No illicit drug use FAMILY HISTORY: Mother with colon cancer REVIEW OF ORGAN SYSTEMS: CONSTITUTIONAL: No reports of fevers or chills. PHYSICAL EXAM: VITAL SIGNS: Stable GENERAL: Well-developed pleasant in no acute distress. HEENT: No scleral icterus. Extraocular movements grossly intact. Moist buccal mucosa. NECK: Supple without lymphadenopathy. CHEST: Unlabored respirations. Equal bilateral excursions. CARDIOVASCULAR: Regular rate and rhythm. Distal 2+ pulses. ABDOMEN: Soft, nondistended. MUSCULOSKELETAL: No clubbing, cyanosis, or edema. ASSESSMENT: 1. Gastroesophageal reflux disease 2. Change in bowel habits and family history of colon cancer PLAN: 1. Recommend proceeding with an upper and lower endoscopy Past Medical History Past Medical History: Asthma Additional Past Medical History / Comment(s): seasonal allgeries, occ diarrhea History of Any Multi-Drug Resistant Organisms: None Reported Past Surgical History: Cholecystectomy, Ear Surgery, Hysterectomy Additional Past Surgical History / Comment(s): Right ear sinus infection - tube in place (approx. 3 years ago). Colonoscopy Past Anesthesia/Blood Transfusion Reactions: No Reported Reaction Smoking Status: Never smoker - Past Family History Mother Family Medical History: Cancer Additional Family Medical History / Comment(s): colon cancer Father Family Medical History: Cancer Additional Family Medical History / Comment(s): prostate, bladder, skin cancers Medications and Allergies Home Medications Medication Instructions Recorded Confirmed Type Albuterol Nebulized [Ventolin 2.5 mg INHALATION RT-TID PRN 11/19/19 12/30/19 History Nebulized] Diphenox-Atrop 2.5-0.025 mg 1 - 2 tab PO QID PRN 11/19/19 12/30/19 History [Lomotil] Levocetirizine Dihydrochloride 5 mg PO DAILY 11/19/19 12/30/19 History [Xyzal] Montelukast [Singulair] 10 mg PO DAILY 11/19/19 12/30/19 History Albuterol Inhaler [Ventolin Hfa 1 - 2 puff INHALATION RT-QID PRN 12/30/19 12/30/19 History Inhaler] Allergies Allergy/AdvReac Type Severity Reaction Status Date / Time almond Allergy Anaphylaxis Verified 12/30/19 08:59 cashew nut Allergy Anaphylaxis Verified 12/30/19 08:59 Iodine and Iodide Containing Allergy avoids due Verified 12/30/19 08:59 Produc to severe shellfish allergy shellfish derived [Shellfish] Allergy Anaphylaxis Verified 12/30/19 08:59 Surgical - Exam Vital Signs Temp Pulse Resp BP Pulse Ox 98.1 F 85 18 136/81 95 12/31/19 07:27 12/31/19 07:27 12/31/19 07:27 12/31/19 07:27 12/31/19 07:27
--- NOTE | 2019-12-31 08:20 | P.PCN ---
Date of Procedure: 12/31/19 Description of Procedure: PREOPERATIVE DIAGNOSIS: Gastroesophageal reflux disease. POSTOPERATIVE DIAGNOSIS: Gastritis. Gastroesophageal reflux disease. Diaphragmatic hiatal hernia OPERATION: Esophagogastroduodenoscopy with biopsies along antrum. SURGEON: Joelle Carey MD ANESTHESIA: MAC. INDICATIONS: The patient is a 49-year-old female who presents with a history of reflux disease. Benefits and risks of the procedure were described. Informed consent was obtained. DESCRIPTION: The patient was brought into the endoscopy suite and laid in the left lateral decubitus position. An Olympus gastroscope was passed along the posterior oropharynx down to the distal esophagus where the squamocolumnar junction was encountered at 35 cm from the incisors. The stomach was entered and no bile reflux was found. Additional findings are listed below. Biopsies with cold forceps were obtained of the antrum. The first through third portion of the duodenum was examined and unremarkable. Retroflexion of the scope confirmed Hill grade 3 lower esophageal valve. The squamocolumnar junction demonstrated LA grade B erosive esophagitis. The stomach was desufflated. The patient tolerated the procedure well. FINDINGS: Squamocolumnar junction 35 cm from the incisors. Diaphragmatic hiatus at 39 cm. Hiatal hernia, 4 cm Hill grade 3 lower esophageal valve. LA grade B erosive esophagitis. No active duodenitis. Chronic gastritis RECOMMENDATIONS: Upper endoscopy as needed.
--- NOTE | 2019-12-31 08:45 | P.PCN ---
Date of Procedure: 12/31/19 Description of Procedure: PREOPERATIVE DIAGNOSIS: Change in bowel habits Family history of colon cancer, mother POSTOPERATIVE DIAGNOSIS: Change in bowel habits Family history of colon cancer, mother OPERATION: Colonoscopy to the cecum, ileocecal valve and appendiceal orifice. SURGEON: Joelle Carey MD. ANESTHESIA: MAC. INDICATIONS: The patient is a 49-year-old female who presents with change in bowel habits including family history of colon cancer in mother at young age. Benefits and risks were described and informed consent was obtained. DESCRIPTION OF PROCEDURE: The patient had undergone Suprep. She had been brought into the operating room and laid in the left lateral decubitus position. After adequate intravenous sedation, the rectum was examined with 2% lidocaine jelly. No external hemorrhoids were encountered. The rectal tone was within normal limits. No lesions were palpated in the rectal vault. An Olympus colonoscope was advanced until the cecum, ileocecal valve and appendiceal orifice were clearly viewed. The prep was fair. No scattered diverticulosis was encountered. No colonic polyps were found. No evidence of focal colitis was found. Retroflexion of the scope demonstrated grade no internal hemorrhoids without active bleeding or inflammation. The colon was desufflated. The patient had tolerated the procedure well. Withdrawal time was over 6 minutes. FINDINGS: Aronchick preparation quality scale 2 (1-5) No internal hemorrhoids No external prolapsed hemorrhoids. No arteriovenous malformations. No adenomatous polyps. No focal colitis. RECOMMENDATIONS: Lower endoscopy at age 51. Plan - Discharge Summary Discharge Rx Participant: No New Discharge Prescriptions: Continue Montelukast [Singulair] 10 mg PO DAILY Diphenox-Atrop 2.5-0.025 mg [Lomotil] 1 - 2 tab PO QID PRN PRN Reason: Diarrhea Albuterol Nebulized [Ventolin Nebulized] 2.5 mg INHALATION RT-TID PRN PRN Reason: Shortness Of Breath Levocetirizine Dihydrochloride [Xyzal] 5 mg PO DAILY Albuterol Inhaler [Ventolin Hfa Inhaler] 1 - 2 puff INHALATION RT-QID PRN PRN Reason: Shortness Of Breath Discharge Medication List Albuterol Nebulized [Ventolin Nebulized] 2.5 mg INHALATION RT-TID PRN 11/19/19 [History] Diphenox-Atrop 2.5-0.025 mg [Lomotil] 1 - 2 tab PO QID PRN 11/19/19 [History] Levocetirizine Dihydrochloride [Xyzal] 5 mg PO DAILY 11/19/19 [History] Montelukast [Singulair] 10 mg PO DAILY 11/19/19 [History] Albuterol Inhaler [Ventolin Hfa Inhaler] 1 - 2 puff INHALATION RT-QID PRN 12/30/19 [History] Follow up Appointment(s)/Referral(s): Joelle Carey MD [STAFF PHYSICIAN] - 01/20/20 Patient Instructions/Handouts: Hiatal Hernia (DC) Activity/Diet/Wound Care/Special Instructions: Repeat colonoscopy at age 51 Discharge Disposition: HOME SELF-CARE
[2019-12-31 08:48] VITALS: BP 122/84; PULSE 79; RESP 20
== END 2019-12-31 09:10 | disposition home or self-care (01) ==
LOC: ORWHC2ENDO 07:06
PROVIDERS: ATTEND Surgery Plastic and Reconstructive Surgery
DX: K29.50 Unspecified chronic gastritis without bleeding (principal); K21.0 Gastro-esophageal reflux disease with esophagitis; K22.10 Ulcer of esophagus without bleeding; K44.9 Diaphragmatic hernia without obstruction or gangrene; R19.4 Change in bowel habit; Z80.0 Family history of malignant neoplasm of digestive organs; J45.909 Unspecified asthma, uncomplicated; Z87.19 Personal history of other diseases of the digestive system; Z90.49 Acquired absence of other specified parts of digestive tract; Z98.890 Other specified postprocedural states; Z90.710 Acquired absence of both cervix and uterus; Z86.19 Personal history of other infectious and parasitic diseases; Z96.22 Myringotomy tube(s) status; Z79.899 Other long term (current) drug therapy; Z91.018 Allergy to other foods; Z91.041 Radiographic dye allergy status; Z91.013 Allergy to seafood; Z80.42 Family history of malignant neoplasm of prostate; Z80.52 Family history of malignant neoplasm of bladder; Z80.8 Family history of malignant neoplasm of other organs or systems
CPT/HCPCS: 43239; 88305; J2001; J2704; G0105

== ENCOUNTER → 2020-03-03 | Outpatient (CLI) | payer OTHER ==
--- NOTE | 2020-03-03 12:30 | FL ---
Barium swallow HISTORY: Diaphragmatic hernia, gastroesophageal reflux disease, hiatal hernia 15 seconds fluoroscopy time supplied, 11 images obtained for correlation CT scan 11/19/2019 Swallowing mechanism is normal. No gastroesophageal reflux was identified. No extrinsic or extrinsic esophageal lesion. Small sliding hiatal hernia is questioned. IMPRESSION: No gastroesophageal reflux identified. Small sliding hiatal hernia is suspected.
== END | disposition home or self-care (01) ==
LOC: RADUSWWP 09:05
PROVIDERS: ATTEND Surgery Plastic and Reconstructive Surgery
DX: K44.9 Diaphragmatic hernia without obstruction or gangrene (principal)
CPT/HCPCS: 74220

== ENCOUNTER → 2020-03-24 | Outpatient (CLI) | payer OTHER ==
[2020-03-24 15:02] LABS: HCT 38.7 % (34.0-46.0); HGB 12.6 gm/dL (11.4-16.0); MCH 28.1 pg (25.0-35.0); MCHC 32.6 g/dL (31.0-37.0); MCV 86.3 fL (80.0-100.0); Mean Platelet Volume 9.3; Platelet Count 316 k/uL (150-450); RBC 4.48 m/uL (3.80-5.40); RDW 12.9 % (11.5-15.5); WBC 9.1 k/uL (3.8-10.6)
== END | disposition home or self-care (01) ==
LOC: LABPAT 13:42
PROVIDERS: ATTEND Surgery Plastic and Reconstructive Surgery
DX: Z01.818 Encounter for other preprocedural examination (principal); K44.9 Diaphragmatic hernia without obstruction or gangrene
CPT/HCPCS: 85027

== ENCOUNTER 2020-03-26 09:54 | Observation (INO) | payer OTHER ==
--- NOTE | 2020-03-26 07:17 | P.GSHP ---
History of Present Illness H&P Date: 03/26/20 CHIEF COMPLAINT: Paraesophageal hiatal hernia with gastroesophageal reflux disease. HISTORY OF PRESENT ILLNESS: The patient is a 49-year-old female who presents with paraesophageal hiatal hernia. She has completed an esophageal manometry including upper endoscopy workup. Now she presents for surgical intervention. PAST MEDICAL HISTORY: Please see list. PAST SURGICAL HISTORY: Please see list. MEDICATIONS: Please see list. ALLERGIES: Please see list. SOCIAL HISTORY: No illicit drug use FAMILY HISTORY: No reports of Crohn disease or ulcerative colitis. REVIEW OF ORGAN SYSTEMS: CONSTITUTIONAL: No reports of fevers or chills. GI: Denies any blood in stools or constipation. PHYSICAL EXAM: VITAL SIGNS: Stable GENERAL: Well-developed pleasant and in no acute distress. HEENT: No scleral icterus. Extraocular movements grossly intact. Moist buccal mucosa. NECK: Supple without lymphadenopathy. CHEST: Unlabored respirations. Equal bilateral excursions. CARDIOVASCULAR: Regular rate and rhythm. Distal 2+ pulses. ABDOMEN: Soft, nondistended. No peritoneal signs. MUSCULOSKELETAL: No clubbing, cyanosis, or edema. SKIN: Well-perfused. Good skin turgor. MANOMETRY: Shows no evidence of achalasia or scleroderma. ASSESSMENT: 1. Diaphragmatic paraesophageal hiatal hernia with severe gastroesophageal reflux disease. PLAN: 1. Recommend proceeding with a robotic paraesophageal hiatal hernia with possible mesh. 2. Benefits and risks of surgical intervention was discussed including possibility of open technique. 3. Inpatient hospitalization recommended of 2 nights 4. DVT prophylaxis. 5. Antibiotic prophylaxis. 6. She has also completed a very low caloric high-protein diet to address underlying hepatomegaly. Past Medical History Past Medical History: Asthma, GERD/Reflux Additional Past Medical History / Comment(s): hiatal hernia,seasonal allgeries, occ diarrhea History of Any Multi-Drug Resistant Organisms: None Reported Past Surgical History: Cholecystectomy, Ear Surgery, Hysterectomy Additional Past Surgical History / Comment(s): Right ear sinus infection - tube in place (approx. 3 years ago). Colonoscopy Past Anesthesia/Blood Transfusion Reactions: No Reported Reaction Smoking Status: Never smoker - Past Family History Mother Family Medical History: Cancer Additional Family Medical History / Comment(s): colon cancer Father Family Medical History: Cancer Additional Family Medical History / Comment(s): prostate, bladder, skin cancers Medications and Allergies Home Medications Medication Instructions Recorded Confirmed Type Albuterol Nebulized [Ventolin 2.5 mg INHALATION RT-TID PRN 11/19/19 03/22/20 History Nebulized] Diphenox-Atrop 2.5-0.025 mg 1 - 2 tab PO QID PRN 11/19/19 03/22/20 History [Lomotil] Montelukast [Singulair] 10 mg PO QAM 11/19/19 03/22/20 History Albuterol Inhaler [Ventolin Hfa 1 - 2 puff INHALATION RT-QID PRN 12/30/19 03/22/20 History Inhaler] Levocetirizine Dihydrochloride 5 mg PO QAM 03/22/20 03/22/20 History [Xyzal] buPROPion HCL [Wellbutrin XL] 300 mg PO QAM 03/22/20 03/22/20 History Allergies Allergy/AdvReac Type Severity Reaction Status Date / Time almond Allergy Anaphylaxis Verified 03/22/20 15:13 cashew nut Allergy Anaphylaxis Verified 03/22/20 15:13 Iodine and Iodide Containing Allergy avoids due Verified 03/22/20 15:13 Produc to severe shellfish allergy shellfish derived [Shellfish] Allergy Anaphylaxis Verified 03/22/20 15:13 tree nut [Nut] Allergy Anaphylaxis Verified 03/22/20 15:13
[~2020-03-26 09:54] MED LIST changes: +ACETAMINOPHEN TAB 500 MG TAB PO STA; +CHLORHEXIDINE GLUCONATE 15 ML CUP MUCOUS MEM ONE; +DEXAMETHASONE SOD PHOSPHATE 10 MG/ML 1 ML VIAL IV ONE; +GABAPENTIN 300 MG CAP PO STA; +HEPARIN SODIUM,PORCINE 5,000 UNIT/ML 1 ML VIAL SQ ONE; +HYDROmorphone 0.5 MG/0.5 ML SYRINGE IVP PRN; +LIDOCAINE 1% (10MG/ML) FOR IV START INTRADERMA PRN; +MIDAZOLAM 2 MG/2 ML VIAL IV PRN; +ONDANSETRON 4 MG/2 ML VIAL IVP ONE; +PANTOPRAZOLE 40 MG/10 ML VIAL IV STA; +SCOPOLAMINE 1.5MG/72HR PATCH TRANSDERM STA; +metroNIDAZOLE-NS PMX 500 MG in SALINE 1 100ML.BAG IVPB ONE
[2020-03-26] MEDS ORDERED: fentaNYL (PF) 50 MCG/ML 2 ML AMP ONE (14:00)
[2020-03-26] MEDS ORDERED: MIDAZOLAM 2 MG/2 ML VIAL ONE (14:00)
[2020-03-26] MEDS ORDERED: LIDOCAINE 1% INJ 10MG/ML (20 ML MDV) ONE (14:00)
[2020-03-26] MEDS ORDERED: PROPOFOL 10 MG/ML 20 ML VIAL IV ONE (14:00)
[2020-03-26] MEDS ORDERED: ROCURONIUM 10 MG/ML (5 ML VIAL) IV ONE (14:00)
[2020-03-26] MEDS ORDERED: HYDROmorphone (PF) 1 MG/ML ONE (14:00)
[2020-03-26] MEDS ORDERED: BUPIVACAINE (PF) 0.25% 30 ML VIAL SQ ONE ×2 (14:21→14:37)
[2020-03-26] MEDS ORDERED: LACTATED RINGERS 1,000 ML IV ONE (14:40)
[2020-03-26] MEDS ORDERED: ALBUTEROL NEBULIZED 2.5 MG/3 ML INHALATION PRN (16:04)
[2020-03-26] MEDS ORDERED: ACETAMINOPHEN IV (For NPO) 1,000 MG in EMPTY BAG 1 BAG IVPB ONE (16:12)
[2020-03-26] MEDS ORDERED: diphenhydrAMINE 50 MG/ML 1 ML VIAL IVP PRN (16:12)
[2020-03-26] MEDS ORDERED: NALOXONE 0.4 MG/ML 1 ML VIAL IV PRN (16:12)
[2020-03-26] MEDS ORDERED: ONDANSETRON 4 MG/2 ML VIAL IVP PRN (16:12)
--- NOTE | 2020-03-26 16:18 | P.OP ---
Date of Procedure: 03/26/20 Description of Procedure: SURGEON: BLOSSOM ERICKSON MD PREOPERATIVE DIAGNOSES: 1. Symptomatic paraesophageal diaphragmatic hiatal hernia. 2. Gastroesophageal reflux disease. 3. Epigastric abdominal pain 4. Asthma 5. Depressive disorder POSTOPERATIVE DIAGNOSES: 1. Symptomatic paraesophageal diaphragmatic hiatal hernia. 2. Gastroesophageal reflux disease. 3. Epigastric abdominal pain 4. Asthma 5. Depressive disorder OPERATION: 1. Robotic-assisted da Jarvis Xi laparoscopic repair of incarcerated paraesophageal hiatal hernia, 4 x 4 cm, with [place] Biopatch A 8 x 8 cm. 2. Intraoperative esophagogastroduodenoscopy 3. Placement of 56-Palestinian bougie for esophagogastric junction obstruction and hypertensive of esophageal sphincter ANESTHESIA: General with local anesthetic. ESTIMATED BLOOD LOSS: 5 mL SPECIMENS REMOVED: None COMPLICATIONS: None. Condition: stable Disposition: floor FINDINGS: 1. Midline incarcerated paraesophageal hiatal hernia 4 x 4 cm 2. Intraoperative upper endoscopy confirms complete closure of hiatal hernia from Hill grade 4 to Hill grade 1 3. Intraesophageal length over 3+ centimeters INDICATIONS: The patient is a 49-year-old female who presents with epigastric abdominal pain, gastroesophageal reflux disease poorly controlled despite medications, and a symptomatic diaphragmatic hiatal hernia. Preoperative workup including upper endoscopy demonstrated a sliding hiatal hernia. She completed an esophageal manometry. Given the severity of symptoms, she had elected for surgical intervention. Benefits and risks including bleeding, infection, recurrence, dysphagia, injury to the lung, need for further surgery was described at length. Informed consent was obtained. DESCRIPTION: The patient was brought into the operating room and placed in supine position. Preoperatively she had received heparin subcutaneously for DVT prophylaxis. After general induction, the abdomen was prepped and draped in standard sterile fashion. The patient had previously voided prior to coming to the operating room. Ioban draping was placed along the abdomen. A timeout protocol was confirmed with the surgical team, for which the patient's name, procedure to be performed including DVT prophylaxis with bilateral SCDs, and preoperative antibiotics were also confirmed. A robotic da Jarvis Xi system was prepped and primed. At 12 cm from the xiphoid to just below the umbilicus, proposed port sites were marked with indelible marker along the left axillary line, left mid-clavicular line with each ports were marked 10 cm from each other. A 5 mm 0 degrees laparoscopic trocar entry was performed along the left upper quadrant. The abdomen was insufflated to 15 mmHg pressure was tolerated well. Diagnostic laparoscopy demonstrated no injury to bowel, viscera, or mesentery. No injury had occurred to the small bowel or viscera. The liver was smooth, with sharp edges consistent with two-week high-protein low-carb diet. Previous trochar sites from cholecystectomy were used. Next, one 8 mm robotic port was placed along the right upper abdomen. An 8-mm port was were placed along the right lateral lateral abdominal wall. The camera 8-mm port was maintained along the epigastrium. Another 12 mm port was placed along the left upper abdominal wall after exchanging the 5 mm port. Please note that the ports were placed at least 20 cm away from the target anatomy. Care was taken to check that each robotic arm were safely away from collision with the bed or the patient. At the epigastrium, a medium sized Donald liver retractor was placed under direct visualization with the Iron Side Panel Padder placed under the right shoulder of the patient. All robotic arms were used. The patient was repositioned in reverse Trendelenburg position at 21-degrees after lowering the bed. The robot was docked above the right side of the patient. Using a grasper for arm 3, a grasper for arm 1, including vessel sealer for arm 2, the robotic system was docked and primed as described. Instruments were interchanged by the assistant scientist. I had sat at the console. The gastrohepatic ligament was cleaved using a vessel sealer. Next, the phrenoesophageal ligament was mobilized and the distal esophagus was mobilized circumferentially. The left and right crura was identified. Circumferentially, the hernia sac was excised and brought into the peritoneal cavity. Moderate dissection into the mediastinum was performed to release the esophagus into the abdominal cavity. The paraesophageal hiatal hernia sac was also incised and divided from the esophagus. A distal esophageal extramucosal lipoma was also identified and resected 2 cm using a vessel sealer. Care was taken to avoid any gastrotomy. The measured defect was consistent with 4 cm axial length and 4 cm in width. After dissection, the distal esophagus of 3+ cm was brought into the abdominal cavity. Once the hiatus and crura was dissected, 2-0 VLOC suture was placed to reapproximate the diaphragmatic hiatus posteriorly. To buttress the repair, a [place] Biopatch A was prepared along the back table and cut in half of a obrien-hole fashion as to reinforce the repair as an underlay. The mesh was placed along the crural repair and tagged using horizontal mattress sutures using 2-0 VLOC. I went to the head of the bed to perform intraoperative esophagogastroduodenoscopy and placement of a 56Fr bougie. The bougie was passed along the posterior oropharynx into the stomach to address pre-existing hypertensive upper esophageal sphincter and left for dilation for 2 minutes then removed. An Olympus gastroscope was passed through posterior oropharynx. Retroflexion of the scope confirmed a Hill grade 1 lower esophageal valve. The stomach had been desufflated. No evidence of leaks were found of the esophagus or stomach. The squamocolumnar junction was at 42 cm from the incisors. The hiatus was at 39 cm from the incisors. The GI tract with desufflated This concluded the endoscopic portion of the case. The robot was undocked from the patient. I re-scrubbed into the case. All instruments and pneumoperitoneum and specimens were evacuated from the abdominal cavity. Incisions were reapproximated using 4-0 Monocryl in an interrupted subcuticular fashion. Liquid glue was applied to the skin. Local anesthetic was infiltrated in all wounds for postop analgesia. Multiple intra-abdominal films were obtained. At the end of the procedure, needle, sponge, and instrument count was verified correct by the surgical resident. The patient had tolerated the procedure well and was taken to the postanesthesia unit in stable condition.
[2020-03-26] MEDS: KETOROLAC 15 MG/ML 1 ML VIAL IVP SCH (17:15)
[2020-03-26] MEDS: 0.9% NACL WITH KCL 20 MEQ/L 1,000 ML IV SCH ×2 (18:30→23:20)
[2020-03-26] MEDS: SIMETHICONE 40 MG/0.6 ML DROPS 2,000 MG/30 ML BOTTLE PO SCH (18:31)
[2020-03-26] MEDS: HYOSCYAMINE ORAL DROPS 1.875 MG/15 ML BOTTLE PO SCH (18:31)
[2020-03-26] MEDS ORDERED: DEXAMETHASONE SOD PHOSPHATE 10 MG/ML 1 ML VIAL IV PRN (18:39)
[2020-03-26] MEDS: ALBUTEROL NEBULIZED 2.5 MG/3 ML INHALATION SCH (19:54)
[2020-03-26] MEDS: DEXAMETHASONE SOD PHOSPHATE 4 MG/ML 1 ML VIAL IV SCH (20:39)
[2020-03-26] MEDS: METOCLOPRAMIDE 5 MG/ML 2 ML VIAL IVP SCH (20:39)
[2020-03-26] MEDS: HYDROmorphone 1 MG/ML 1 ML SYRINGE IVP PRN (22:24)
[2020-03-27] MEDS: SIMETHICONE 40 MG/0.6 ML DROPS 2,000 MG/30 ML BOTTLE PO SCH ×3 (00:51→12:01)
[2020-03-27] MEDS: DEXAMETHASONE SOD PHOSPHATE 4 MG/ML 1 ML VIAL IV SCH ×3 (00:52→12:00)
[2020-03-27] MEDS: METOCLOPRAMIDE 5 MG/ML 2 ML VIAL IVP SCH ×3 (00:52→12:01)
[2020-03-27] MEDS: HYOSCYAMINE ORAL DROPS 1.875 MG/15 ML BOTTLE PO SCH ×3 (00:52→12:00)
[2020-03-27] MEDS: KETOROLAC 15 MG/ML 1 ML VIAL IVP SCH ×3 (00:52→12:00)
[2020-03-27] MEDS: HYDROmorphone 1 MG/ML 1 ML SYRINGE IVP PRN ×2 (04:58→10:37)
[2020-03-27] MEDS: 0.9% NACL WITH KCL 20 MEQ/L 1,000 ML IV SCH (06:21)
--- NOTE | 2020-03-27 07:33 | FL ---
EXAMINATION TYPE: FL esophagus cervic/pharynx DATE OF EXAM: 03/27/2020 LIMITED ESOPHAGRAM: CLINICAL HISTORY: Hiatal hernia and reflux, status post recent fundoplication surgery one day teena myers TECHNIQUE: Limited esophagram is performed utilizing 20 oz of Isovue-370. A total of 11 seconds of f luoroscopic time was utilized during procedure. 11 spot images saved to PACS. Comparison: Prior swallow study March 03, 2020 FINDINGS: The patient swallowed contrast without difficulty or delay. Esophageal peristalsis and mo tility are within normal limits. There is good flow of contrast along the diaphragmatic hiatus into t he stomach, there is no evidence of contrast extravasation to suggest leak. No persistent or new hiat al hernia is seen. Patient remains asymptomatic. IMPRESSION: No evidence of leak or significant obstruction status post Alejandro fundoplication surgery yesterday.
[2020-03-27] MEDS ORDERED: 0.9% NACL WITH KCL 20 MEQ/L 1,000 ML IV SCH (08:00)
[2020-03-27] MEDS: ALBUTEROL NEBULIZED 2.5 MG/3 ML INHALATION SCH ×2 (08:05→11:38)
--- NOTE | 2020-03-27 08:15 | P.PN ---
Progress Note - Text Progress Note Date: 03/26/20 Patient seen and evaluated following surgery. She denies any dysphagia. Tolerating ice chips. No moderate pain. She feels well. Discharge instructions are reviewed including post hiatal hernia diet as removed in the office. Patient to follow-up in the office in 5 days. All questions addressed.
[2020-03-27 08:54] VITALS: BP 110/72; PULSE 86; RESP 16; TEMP 98.2
[2020-03-27 09:00] LABS: Basophils % (A) 0 %; Eosinophils # (A) 0.2 k/uL (0-0.7); Eosinophils % (A) 1 %; HCT 38.1 % (34.0-46.0); HGB 12.2 gm/dL (11.4-16.0); Lymphocytes # (A) 1.3 k/uL (1.0-4.8); Lymphocytes % (A) 11 %; MCH 27.6 pg (25.0-35.0); MCHC 31.9 g/dL (31.0-37.0); MCV 86.6 fL (80.0-100.0); Mean Platelet Volume 9.3; Monocytes # (A) 0.1 k/uL (0-1.0); Monocytes % (A) 1 %; Neutrophils # (A) 10.9 k/uL (1.3-7.7); Neutrophils % (A) 87 %; Platelet Count 278 k/uL (150-450); RDW 12.6 % (11.5-15.5); WBC 12.5 k/uL (3.8-10.6)
[2020-03-27] MEDS ORDERED: MONTELUKAST 10 MG TAB PO SCH (09:00)
[2020-03-27] MEDS ORDERED: ENOXAPARIN 40 MG/0.4 ML SYRINGE SQ SCH (09:00)
[2020-03-27] MEDS ORDERED: buPROPion XL 300 MG TAB.ER.24H PO SCH (09:00)
[2020-03-27] MEDS ORDERED: LORATADINE 10 MG TAB PO SCH (09:00)
[2020-03-27] MEDS ORDERED: PANTOPRAZOLE 40 MG/10 ML VIAL IV SCH (09:00)
[2020-03-27 09:09] LABS: African American GFR (CKD) >90 (>60 ml/min/1.73 sqM); Anion Gap 8 mmol/L; Blood Urea Nitrogen 13 mg/dL (7-17); Calcium 8.3 mg/dL (8.4-10.2); Carbon Dioxide 19 mmol/L (22-30); Chloride 109 mmol/L (98-107); Non-African American GFR(CKD) >90 (>60 ml/min/1.73 sqM); Phosphorus 2.4 mg/dL (2.5-4.5); Potassium 4.2 mmol/L (3.5-5.1); Sodium 136 mmol/L (137-145)
--- NOTE | 2020-03-27 12:23 | P.DS ---
Providers Date of admission: 03/27/20 01:44 Expected date of discharge: 03/27/20 Attending physician: Joelle Carey Primary care physician: [facility] Course: Patient underwent elective hiatal hernia repair yesterday. Doing well today. Minimal pain. Tolerating liquids. Upper GI normal. We'll discharge. Follow- up with Dr. Chaudhry. Plan - Discharge Summary Discharge Rx Participant: Yes New Discharge Prescriptions: New bisacodyL [Dulcolax] 5 mg PO DAILY PRN #10 tablet.dr PRN Reason: Constipation Simethicone 40 mg/0.6 ml Drops [Mylicon Drops] 40 mg PO PCHS PRN #30 ml PRN Reason: Gas Omeprazole [PriLOSEC] 40 mg PO DAILY #30 capsule. Ondansetron Odt [Zofran Odt] 4 mg PO Q8HR PRN #9 tab PRN Reason: Nausea Acetaminophen Oral Susp [Tylenol Oral Susp] 500 mg PO Q4-6H PRN #400 ml PRN Reason: Pain Continue Montelukast [Singulair] 10 mg PO QAM Diphenox-Atrop 2.5-0.025 mg [Lomotil] 1 - 2 tab PO QID PRN PRN Reason: Diarrhea Albuterol Nebulized [Ventolin Nebulized] 2.5 mg INHALATION RT-TID PRN PRN Reason: Shortness Of Breath Albuterol Inhaler [Ventolin Hfa Inhaler] 1 - 2 puff INHALATION RT-QID PRN PRN Reason: Shortness Of Breath buPROPion HCL [Wellbutrin XL] 300 mg PO QAM Levocetirizine Dihydrochloride [Xyzal] 5 mg PO QAM Discharge Medication List Albuterol Nebulized [Ventolin Nebulized] 2.5 mg INHALATION RT-TID PRN 11/19/19 [History] Diphenox-Atrop 2.5-0.025 mg [Lomotil] 1 - 2 tab PO QID PRN 11/19/19 [History] Montelukast [Singulair] 10 mg PO QAM 11/19/19 [History] Albuterol Inhaler [Ventolin Hfa Inhaler] 1 - 2 puff INHALATION RT-QID PRN 12/30/19 [History] Levocetirizine Dihydrochloride [Xyzal] 5 mg PO QAM 03/22/20 [History] buPROPion HCL [Wellbutrin XL] 300 mg PO QAM 03/22/20 [History] Acetaminophen Oral Susp [Tylenol Oral Susp] 500 mg PO Q4-6H PRN #400 ml 03/27/20 [Rx] Omeprazole [PriLOSEC] 40 mg PO DAILY #30 capsule. 03/27/20 [Rx] Ondansetron Odt [Zofran Odt] 4 mg PO Q8HR PRN #9 tab 03/27/20 [Rx] Simethicone 40 mg/0.6 ml Drops [Mylicon Drops] 40 mg PO PCHS PRN #30 ml 03/27/20 [Rx] bisacodyL [Dulcolax] 5 mg PO DAILY PRN #10 tablet. 03/27/20 [Rx] Follow up Appointment(s)/Referral(s): Joelle Carey MD [STAFF PHYSICIAN] - 03/30/20 Patient Instructions/Handouts: Pain Management After Surgery (DC), Laparoscopic Hiatal Hernia Repair (DC) Activity/Diet/Wound Care/Special Instructions: Liquid diet only. No carbonated beverages. No straws. No lifting over 4 pounds in 4 weeks, April 25. May shower. No bath tub soaks for 2 weeks until April 09. October take [id number] Tylenol for pain. Notify Dr. Carey of any fever, chills, severe or worsening pain Discharge Disposition: HOME SELF-CARE
[2020-03-27 13:06] VITALS: BMI 32.6
[2020-03-28] MEDS ORDERED: bisacodyL 5 MG TABLET.DR PO PRN (08:00)
== END 2020-03-27 12:22 | disposition home or self-care (01) ==
LOC: OR 09:54 → 6PED 16:01 → OR 03-27 01:55
PROVIDERS: ADMIT Surgery Plastic and Reconstructive Surgery; ATTEND Surgery Plastic and Reconstructive Surgery
DX: K44.0 Diaphragmatic hernia with obstruction, without gangrene (principal); D17.5 Benign lipomatous neoplasm of intra-abdominal organs; K22.2 Esophageal obstruction; K21.9 Gastro-esophageal reflux disease without esophagitis; J45.909 Unspecified asthma, uncomplicated; F32.9 Major depressive disorder, single episode, unspecified; Z87.19 Personal history of other diseases of the digestive system; Z90.49 Acquired absence of other specified parts of digestive tract; Z98.890 Other specified postprocedural states; Z90.710 Acquired absence of both cervix and uterus; Z86.19 Personal history of other infectious and parasitic diseases; Z96.22 Myringotomy tube(s) status; Z79.899 Other long term (current) drug therapy; Z91.018 Allergy to other foods; Z91.041 Radiographic dye allergy status; Z91.013 Allergy to seafood; Z80.0 Family history of malignant neoplasm of digestive organs; Z80.42 Family history of malignant neoplasm of prostate; Z80.52 Family history of malignant neoplasm of bladder; Z80.8 Family history of malignant neoplasm of other organs or systems
CPT/HCPCS: 43282; S2900; 74210; 80051; 82310; 82565; 83735; 84100; 84520; 85025; 94640

== ENCOUNTER → 2020-04-20 | Outpatient (CLI) | payer OTHER ==
--- NOTE | 2020-04-26 11:12 | MM ---
Reason for exam: screening (asymptomatic). Last mammogram was performed 1 year and 2 months ago. History: Patient is postmenopausal. Family history of breast cancer in maternal grandmother at age 80 and breast cancer in maternal aunt at age 50. Physical Findings: A clinical breast exam by your physician is recommended on an annual basis and results should be correlated with mammographic findings. MG 3D Screening Mammo W/Cad Bilateral CC and MLO view(s) were taken. Prior study comparison: February 25, 2019, bilateral MG 3d screening mammo w/cad. January 15, 2018, bilateral MG 3d screening mammo w/cad. The breast tissue is heterogeneously dense. This may lower the sensitivity of mammography. No significant changes when compared with prior studies. ASSESSMENT: Negative, BI-RAD 1 RECOMMENDATION: Routine screening mammogram of both breasts in 1 year.
== END | disposition home or self-care (01) ==
LOC: RADMAMWWP 13:44
PROVIDERS: ATTEND Family Medicine
DX: Z12.31 Encounter for screening mammogram for malignant neoplasm of breast (principal)
CPT/HCPCS: 77063; 77067

== ENCOUNTER → 2021-07-25 | Outpatient (CLI) | payer OTHER ==
--- NOTE | 2021-07-26 10:02 | MM ---
Reason for exam: screening (asymptomatic). Last mammogram was performed 1 year and 3 months ago. History: Patient is postmenopausal. Family history of breast cancer in maternal grandmother at age 80 and breast cancer in maternal aunt at age 50. Physical Findings: A clinical breast exam by your physician is recommended on an annual basis and results should be correlated with mammographic findings. MG 3D Screening Mammo W/Cad Bilateral CC and MLO view(s) were taken. Prior study comparison: April 20, 2020, bilateral MG 3d screening mammo w/cad. February 25, 2019, bilateral MG 3d screening mammo w/cad. The breast tissue is heterogeneously dense. This may lower the sensitivity of mammography. There is no discrete abnormality. No significant changes when compared with prior studies. ASSESSMENT: Negative, BI-RAD 1 RECOMMENDATION: Routine screening mammogram of both breasts in 1 year.
== END | disposition home or self-care (01) ==
LOC: RADMAMWWP 10:05
PROVIDERS: ATTEND Family Medicine
DX: Z12.31 Encounter for screening mammogram for malignant neoplasm of breast (principal); Z80.3 Family history of malignant neoplasm of breast; Z78.0 Asymptomatic menopausal state
CPT/HCPCS: 77063; 77067

== ENCOUNTER → 2021-11-07 | Outpatient (CLI) | payer OTHER ==
--- NOTE | 2021-11-07 10:16 | FL ---
EXAMINATION TYPE: FL barium swallow DATE OF EXAM: 11/07/2021 LIMITED UGI-ESOPHAGRAM: CLINICAL HISTORY: History of Alejandro fundoplication surgery a few years ago with dysphagia. Upper tho racic fullness. TECHNIQUE: Limited esophagram is performed utilizing 20 oz of thin liquid barium. A total of 15 seco nds of fluoroscopic time was utilized during procedure. 25 spot images saved to PACS. Comparison: Prior esophagram March 27, 2020. FINDINGS: The patient swallowed contrast without difficulty or delay. Esophageal peristalsis and mo tility are within normal limits. No abnormal outpouching or diverticulum. Proximal esophagus shows no obvious mass or stricture. There is good flow of contrast along the diaphragmatic hiatus into the st omach, there is no evidence of contrast extravasation to suggest leak. No recurrent hiatal hernia is seen. Patient remains asymptomatic. IMPRESSION: No recurrent hiatal hernia. No obvious proximal mass or stricture.
== END | disposition home or self-care (01) ==
LOC: RADUSWWP 09:09
PROVIDERS: ATTEND Surgery Plastic and Reconstructive Surgery
DX: R13.10 Dysphagia, unspecified (principal); Z98.890 Other specified postprocedural states
CPT/HCPCS: 74220

== ENCOUNTER 2021-12-01 07:52 | Day surgery (SDC) | payer OTHER ==
--- NOTE | 2021-12-01 07:48 | P.GSHP ---
History of Present Illness H&P Date: 12/01/21 CHIEF COMPLAINT: Esophageal stricture HISTORY OF PRESENT ILLNESS: The patient is a 51-year-old female who presents reports dysphagia. Upper endoscopy was offered for further evaluation and management. PAST MEDICAL HISTORY: Please see list. PAST SURGICAL HISTORY: Please see list. MEDICATIONS: Please see list. ALLERGIES: Please see list. SOCIAL HISTORY: No illicit drug use FAMILY HISTORY: No reports of Crohn disease or ulcerative colitis. REVIEW OF ORGAN SYSTEMS: CONSTITUTIONAL: No reports of fevers or chills. GI: Denies any blood in stools or constipation. PHYSICAL EXAM: VITAL SIGNS: Stable GENERAL: Well-developed and pleasant in no acute distress. HEENT: No scleral icterus. Extraocular movements grossly intact. Moist buccal mucosa. NECK: Supple without lymphadenopathy. CHEST: Unlabored respirations. Equal bilateral excursions. CARDIOVASCULAR: Regular rate and rhythm. Distal 2+ pulses. ABDOMEN: Soft, nondistended. MUSCULOSKELETAL: No clubbing, cyanosis, or edema. ASSESSMENT: 1. Esophageal stricture PLAN: 1. Recommend proceeding with an upper endoscopy with rigid dilators. Past Medical History Past Medical History: Asthma, GERD/Reflux, Pneumonia Additional Past Medical History / Comment(s): seasonal allergies, weaned off steroids approx. 1 month ago, had been on for about 1 1/2 years related to asthma & had covid pneumonia in 2020 that affected right lung, trouble swallowing, back of throat feels "like its paralyzed" History of Any Multi-Drug Resistant Organisms: None Reported Past Surgical History: Cholecystectomy, Ear Surgery, Hysterectomy Additional Past Surgical History / Comment(s): Right ear sinus infection - tube in place (approx. 3 years ago). Colonoscopy, repair of hiatal hernia Past Anesthesia/Blood Transfusion Reactions: No Reported Reaction Smoking Status: Never smoker - Past Family History Mother Family Medical History: Cancer Additional Family Medical History / Comment(s): colon cancer Father Family Medical History: Cancer Additional Family Medical History / Comment(s): prostate, bladder, skin cancers Medications and Allergies Home Medications Medication Instructions Recorded Confirmed Type Albuterol Nebulized [Ventolin 2.5 mg INHALATION RT-TID PRN 11/19/19 11/29/21 History Nebulized] Montelukast [Singulair] 10 mg PO QAM 11/19/19 11/29/21 History Albuterol Inhaler [Ventolin Hfa 1 - 2 puff INHALATION RT-QID PRN 12/30/19 11/29/21 History Inhaler] Levocetirizine Dihydrochloride 5 mg PO QAM 03/22/20 11/29/21 History [Xyzal] Budesonide-Formot 160-4.5 Mcg 2 puff INHALATION BID 11/29/21 11/29/21 History [Symbicort 160-4.5 Mcg Inhaler] Tezepelumab-Ekko [Tezspire] 210 mg SQ Q30D 11/29/21 11/29/21 History Tiotropium [place] [Spiriva] 1 cap INHALATION DAILY 11/29/21 11/29/21 History Allergies Allergy/AdvReac Type Severity Reaction Status Date / Time almond Allergy Anaphylaxis Verified 11/29/21 15:20 cashew nut Allergy Anaphylaxis Verified 11/29/21 15:20 Iodine and Iodide Containing Allergy avoids due Verified 11/29/21 15:20 Produc to severe shellfish allergy shellfish derived [Shellfish] Allergy Anaphylaxis Verified 11/29/21 15:20 tree nut [Nut] Allergy Anaphylaxis Verified 11/29/21 15:20
[~2021-12-01 07:52] MED LIST changes: -ACETAMINOPHEN TAB 500 MG TAB PO STA; -CHLORHEXIDINE GLUCONATE 15 ML CUP MUCOUS MEM ONE; -DEXAMETHASONE SOD PHOSPHATE 10 MG/ML 1 ML VIAL IV ONE; -GABAPENTIN 300 MG CAP PO STA; -HEPARIN SODIUM,PORCINE 5,000 UNIT/ML 1 ML VIAL SQ ONE; -HYDROmorphone 0.5 MG/0.5 ML SYRINGE IVP PRN; -LIDOCAINE 1% (10MG/ML) FOR IV START INTRADERMA PRN; -MIDAZOLAM 2 MG/2 ML VIAL IV PRN; -ONDANSETRON 4 MG/2 ML VIAL IVP ONE; -PANTOPRAZOLE 40 MG/10 ML VIAL IV STA; -SCOPOLAMINE 1.5MG/72HR PATCH TRANSDERM STA; -metroNIDAZOLE-NS PMX 500 MG in SALINE 1 100ML.BAG IVPB ONE
[2021-12-01 08:17] VITALS: TEMP 98.1
[2021-12-01] MEDS ORDERED: LIDOCAINE 1% (10MG/ML) FOR IV START INTRADERMA ONE (08:18)
[2021-12-01] MEDS ORDERED: PROPOFOL 10 MG/ML 20 ML VIAL IV ONE (09:21)
[2021-12-01] MEDS ORDERED: LIDOCAINE 2% INJ 20 MG/ML (2 ML VIAL) ONE (09:21)
[2021-12-01 09:50] VITALS: RESP 16
--- NOTE | 2021-12-01 09:51 | P.PCN ---
Date of Procedure: 12/01/21 Description of Procedure: PREOPERATIVE DIAGNOSIS: Dysphagia. Gastroesophageal reflux disease POSTOPERATIVE DIAGNOSIS: Dysphagia. Gastroesophageal reflux disease Gastritis OPERATION: Esophagogastroduodenoscopy with rigid dilator over the guidewire 54 Fr. Esophagogastroduodenoscopy with cold forceps biopsies along antrum SURGEON: Joelle Carey MD ANESTHESIA: MAC. INDICATIONS: The patient is a 51-year-old male who presents with a history of dysphagia. Benefits and risks of the procedure were described. Informed consent was obtained. DESCRIPTION: The patient was brought into the endoscopy suite and laid in the left lateral decubitus position. After a timeout was confirmed, the procedure was initiated. An Olympus gastroscope was passed and the stomach was entered. Mild gastritis was identified. The scope was advanced to the duodenum which was unremarkable. Retroflexion the scope confirmed a Hill grade 1+ lower esophageal valve. Next using an Burmese rigid dilator, a guidewire was placed through the pediatric gastroscope. Next the scope was withdrawn. A 54-Irish rigid Ameri can dilator was passed carefully along the posterior oropharynx to 45 cm and left in place for 2-3 minutes stretch. The dilator was withdrawn including the guidewire. The scope was reentered along the posterior oropharynx with no findings of full-thickness tear of the upper esophageal sphincter. Next, inflammation of the antrum was identified with cold forceps biopsies obtained. No full-thickness injury was encountered. The GI tract was desufflated. The patient tolerated the procedure well. FINDINGS: Squamocolumnar junction unremarkable at 39 cm. Distal esophageal stricture without ulceration Burmese rigid dilator 54-Irish completed. Diaphragmatic hiatus at 40 cm Sliding hiatal hernia, 1 cm Gastritis of antrum Hill grade 1+ lower esophageal valve. LA grade A esophagitis. RECOMMENDATIONS: Upper endoscopy as needed Start omeprazole 40 mg daily for gastritis Plan - Discharge Summary Discharge Rx Participant: No New Discharge Prescriptions: New Omeprazole [PriLOSEC] 40 mg PO DAILY #14 cap Continue Montelukast [Singulair] 10 mg PO QAM Albuterol Nebulized [Ventolin Nebulized] 2.5 mg INHALATION RT-TID PRN PRN Reason: Shortness Of Breath Albuterol Inhaler [Ventolin Hfa Inhaler] 1 - 2 puff INHALATION RT-QID PRN PRN Reason: Shortness Of Breath Levocetirizine Dihydrochloride [Xyzal] 5 mg PO QAM Tezepelumab-Ekko [Tezspire] 210 mg SQ Q30D Budesonide-Formot 160-4.5 Mcg [Symbicort 160-4.5 Mcg Inhaler] 2 puff INHALATION BID Tiotropium Aquilla [Spiriva] 1 cap INHALATION DAILY Discharge Medication List Albuterol Nebulized [Ventolin Nebulized] 2.5 mg INHALATION RT-TID PRN 11/19/19 [History] Montelukast [Singulair] 10 mg PO QAM 11/19/19 [History] Albuterol Inhaler [Ventolin Hfa Inhaler] 1 - 2 puff INHALATION RT-QID PRN 12/30/19 [History] Levocetirizine Dihydrochloride [Xyzal] 5 mg PO QAM 03/22/20 [History] Budesonide-Formot 160-4.5 Mcg [Symbicort 160-4.5 Mcg Inhaler] 2 puff INHALATION BID 11/29/21 [History] Tezepelumab-Ekko [Tezspire] 210 mg SQ Q30D 11/29/21 [History] Tiotropium Aquilla [Spiriva] 1 cap INHALATION DAILY 11/29/21 [History] Omeprazole [PriLOSEC] 40 mg PO DAILY #14 cap 12/01/21 [Rx] Follow up Appointment(s)/Referral(s): Joelle Carey MD [STAFF PHYSICIAN] - 12/13/21 Patient Instructions/Handouts: Duodenitis (DC), Diet for Stomach Ulcers and Gastritis (GEN) Activity/Diet/Wound Care/Special Instructions: New prescription Omeprazole at local pharmacy Discharge Disposition: HOME SELF-CARE
[2021-12-01 10:04] VITALS: BP 115/71; PULSE 79
== END 2021-12-01 10:50 | disposition home or self-care (01) ==
LOC: ORWHC2ENDO 07:52
PROVIDERS: ATTEND Surgery Plastic and Reconstructive Surgery
DX: K22.2 Esophageal obstruction (principal); K31.9 Disease of stomach and duodenum, unspecified; K29.70 Gastritis, unspecified, without bleeding; K29.80 Duodenitis without bleeding; J45.909 Unspecified asthma, uncomplicated; K21.9 Gastro-esophageal reflux disease without esophagitis; Z87.01 Personal history of pneumonia (recurrent); Z86.16 Personal history of COVID-19; Z90.49 Acquired absence of other specified parts of digestive tract; Z90.710 Acquired absence of both cervix and uterus; Z98.890 Other specified postprocedural states; Z80.0 Family history of malignant neoplasm of digestive organs; Z80.8 Family history of malignant neoplasm of other organs or systems; Z79.51 Long term (current) use of inhaled steroids; Z79.899 Other long term (current) drug therapy; Z91.018 Allergy to other foods; Z91.013 Allergy to seafood; Z91.048 Other nonmedicinal substance allergy status; Z88.8 Allergy status to other drugs, medicaments and biological substances
CPT/HCPCS: 88305; 43239; 43248; J2704; J2001; 43249

== ENCOUNTER 2022-05-26 02:32 | Inpatient (IN) | payer OTHER ==
[2022-05-26] MEDS ORDERED: methylPREDNISolone SOD SUCCI 125 MG/2 ML VIAL IV STA (02:53)
[2022-05-26] MEDS ORDERED: SODIUM CHLORIDE 0.9% 1,000 ML IV STA (02:53)
[2022-05-26] MEDS ORDERED: IPRATROPIUM-ALBUTEROL 3 ML NEB INHALATION STA ×2 (02:53→05:20)
--- NOTE | 2022-05-26 03:13 | ED ---
Recheck HPI - General Chief Complaint: Shortness of Breath Stated Complaint: rsv + Time Seen by Provider: 05/26/22 02:48 Source: patient, RN notes reviewed, old records reviewed Mode of arrival: ambulatory Limitations: no limitations - History of Present Illness Initial Comments: This is a 52-year-old female to the emergency department for evaluation patient presents today for cough and congestion severe shortness of breath persistent here in the ER. Recent diagnosis of RSV. Patient states symptoms are progressively worsening diffuse body aches and pains increased cough and congestion worsening exertional dyspnea. Patient does have history of asthma MD Complaint: abnormal lab -: days(s) Returns Today for: Called Because of Abnormal Lab/Test, persistent/worsening pain related to initial visit Symptoms Since Prior Visit: worsening pain, fever Associated Symptoms: fever, chills, shortness of breath, malaise Treatments Prior to Arrival: Given Pain Meds on - Related Data Home Medications Medication Instructions Recorded Confirmed Albuterol Nebulized [Ventolin 2.5 mg INHALATION RT-QID PRN 11/19/19 05/26/22 Nebulized] Montelukast [Singulair] 10 mg PO DAILY 11/19/19 05/26/22 Albuterol Inhaler [Ventolin Hfa 1 - 2 puff INHALATION RT-QID PRN 12/30/19 05/26/22 Inhaler] Levocetirizine Dihydrochloride 5 mg PO DAILY 03/22/20 05/26/22 [Xyzal] Budesonide-Formot 160-4.5 Mcg 2 puff INHALATION RT-BID 11/29/21 05/26/22 [Symbicort 160-4.5 Mcg Inhaler] Diphenoxylate HCl/Atropine 1 tab PO QID PRN 05/26/22 05/26/22 [Lomotil 2.5-0.025 mg Tablet] Spiriva Respimat 1.25 Mcg Inhaler 2 puff INHALATION RT-DAILY 05/26/22 05/26/22 Previous Rx's Medication Instructions Recorded Omeprazole [PriLOSEC] 40 mg PO DAILY #14 cap 12/01/21 Benzocaine/Menthol Lozeng [Cepacol 1 each MUCOUS MEM Q4HR PRN lozenge 05/31/22 lozenge] Promethazine [Phenergan] 25 mg PO Q8HR PRN 3 Days #9 tab 05/31/22 amLODIPine [Norvasc] 5 mg PO DAILY #30 tab 05/31/22 guaiFENesin [Mucinex] 600 mg PO Q12HR tab 05/31/22 predniSONE 0 mg PO DIRECTED 16 Days #38 tab 05/31/22 Allergies Allergy/AdvReac Type Severity Reaction Status Date / Time almond Allergy Anaphylaxis Verified 05/26/22 11:29 cashew nut Allergy Anaphylaxis Verified 05/26/22 11:29 Iodine and Iodide Containing Allergy avoids due Verified 05/26/22 11:29 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 ROS Other: All systems not noted in ROS Statement are negative. Past Medical History Past Medical History: Asthma, GERD/Reflux, Pneumonia Additional Past Medical History / Comment(s): seasonal allergies, weaned off steroids approx. 1 month ago, had been on for about 1 1/2 years related to asthm a & had covid pneumonia in 2020 that affected right lung, trouble swallowing, back of throat feels "like its paralyzed" History of Any Multi-Drug Resistant Organisms: None Reported Past Surgical History: Cholecystectomy, Ear Surgery, Hysterectomy Additional Past Surgical History / Comment(s): Right ear sinus infection - tube in place (approx. 3 years ago). Colonoscopy, repair of hiatal hernia Past Anesthesia/Blood Transfusion Reactions: No Reported Reaction Past Psychological History: Anxiety Smoking Status: Never smoker - Past Family History Mother Family Medical History: Cancer Additional Family Medical History / Comment(s): colon cancer Father Family Medical History: Cancer Additional Family Medical History / Comment(s): prostate, bladder, skin cancers General Exam General appearance: alert, in no apparent distress Head exam: Present: atraumatic, normocephalic, normal inspection Eye exam: Present: normal appearance, PERRL, EOMI. Absent: scleral icterus, conjunctival injection, periorbital swelling ENT exam: Present: normal exam, mucous membranes moist Neck exam: Present: normal inspection. Absent: tenderness, meningismus, lymphadenopathy Respiratory exam: Present: normal lung sounds bilaterally. Absent: respiratory distress, wheezes, rales, rhonchi, stridor Cardiovascular Exam: Present: regular rate, normal rhythm, normal heart sounds. Absent: systolic murmur, diastolic murmur, rubs, gallop, clicks GI/Abdominal exam: Present: soft, normal bowel sounds. Absent: distended, tenderness, guarding, rebound, rigid Extremities exam: Present: normal inspection, full ROM, normal capillary refill. Absent: tenderness, pedal edema, joint swelling, calf tenderness Back exam: Present: normal inspection Neurological exam: Present: alert, oriented X3, CN II-XII intact Psychiatric exam: Present: normal affect, normal mood Skin exam: Present: warm, dry, intact, normal color. Absent: rash Course Vital Signs 05/26/22 05/26/22 05/26/22 02:39 02:52 03:00 Temperature 97.6 F Pulse Rate 99 94 Pulse Rate [ Pulse Oximetery ] Respiratory 18 18 18 Rate Blood Pressure 138/73 138/80 Blood Pressure [Right Arm] O2 Sat by Pulse 97 96 Oximetry 05/26/22 05/26/22 05/26/22 04:02 04:10 04:20 Temperature Pulse Rate 89 96 110 H Pulse Rate [ Pulse Oximetery ] Respiratory Rate Blood Pressure Blood Pressure [Right Arm] O2 Sat by Pulse Oximetry 05/26/22 05/26/22 05/26/22 05:10 05:31 07:00 Temperature 97.8 F Pulse Rate 117 H 114 H Pulse Rate [ 96 Pulse Oximetery ] Respiratory 18 18 16 Rate Blood Pressure 130/75 132/74 Blood Pressure 122/73 [Right Arm] O2 Sat by Pulse 99 98 98 Oximetry - Reevaluation(s) Reevaluation #1: 05/26/22 Medical record is reviewed Patient symptoms are improved here in the ER Patient informed results and questions answered Medical Decision Making - Medical Decision Making 52 female to the emergency department for evaluation positive RSV bronchiolitis bronchitis and asthma and COPD. Patient admitted for breathing treatments and supportive care - Lab Data Result diagrams: 05/29/22 08:18 05/29/22 08:18 Lab Results 05/26/22 05/26/22 05/26/22 Range/Units 03:23 03:23 03:23 WBC 14.7 H (3.8-10.6) k/uL RBC 4.63 (3.80-5.40) m/uL Hgb 13.3 (11.4-16.0) gm/dL Hct 39.6 (34.0-46.0) % MCV 85.5 (80.0-100.0) fL MCH 28.7 (25.0-35.0) pg MCHC 33.6 (31.0-37.0) g/dL RDW 13.1 (11.5-15.5) % Plt Count 281 (150-450) k/uL MPV 10.0 Absolute Nucleated RBC (0.00-0.00) X 10*3/uL Neutrophils % 91 % Lymphocytes % 6 % Monocytes % 1 % Eosinophils % 2 % Basophils % 0 % Neutrophils # 13.4 H (1.3-7.7) k/uL Lymphocytes # 0.9 L (1.0-4.8) k/uL Monocytes # 0.2 (0-1.0) k/uL Eosinophils # 0.3 (0-0.7) k/uL Basophils # 0.0 (0-0.2) k/uL NRBC/100 WBC Diff (0.0-0.0) /100 WBCS PT 10.1 (9.0-12.0) sec INR 0.9 (<1.2) APTT 23.3 (22.0-30.0) sec D-Dimer 0.42 (<0.60) mg/L FEU Sodium 137 (137-145) mmol/L Potassium 4.3 (3.5-5.1) mmol/L Chloride 109 H (98-107) mmol/L Carbon Dioxide 17 L (22-30) mmol/L Anion Gap 11 mmol/L BUN 12 (7-17) mg/dL Creatinine 0.62 (0.52-1.04) mg/dL Est GFR (CKD-EPI)AfAm >90 (>60 ml/min/1.73 sqM) Est GFR (CKD-EPI)NonAf >90 (>60 ml/min/1.73 sqM) BUN/Creatinine Ratio (12.00-20.00) Ratio Glucose 176 H (74-99) mg/dL Lactic Ac Sepsis Rflx Plasma Lactic Acid Guru (0.7-2.0) mmol/L Calcium 10.6 H (8.4-10.2) mg/dL Magnesium 1.9 (1.6-2.3) mg/dL Total Bilirubin 0.3 (0.2-1.3) mg/dL AST 26 (14-36) U/L ALT 24 (4-34) U/L Alkaline Phosphatase 54 (38-126) U/L Troponin I (0.000-0.034) ng/mL NT-Pro-B Natriuret Pep pg/mL Total Protein 6.9 (6.3-8.2) g/dL Albumin 4.3 (3.5-5.0) g/dL Globulin g/dL Albumin/Globulin Ratio Procalcitonin (0.02-0.09) ng/mL 05/26/22 05/26/22 05/26/22 Range/Units 03:23 03:23 03:23 WBC (3.8-10.6) k/uL RBC (3.80-5.40) m/uL Hgb (11.4-16.0) gm/dL Hct (34.0-46.0) % MCV (80.0-100.0) fL MCH (25.0-35.0) pg MCHC (31.0-37.0) g/dL RDW (11.5-15.5) % Plt Count (150-450) k/uL MPV Absolute Nucleated RBC (0.00-0.00) X 10*3/uL Neutrophils % % Lymphocytes % % Monocytes % % Eosinophils % % Basophils % % Neutrophils # (1.3-7.7) k/uL Lymphocytes # (1.0-4.8) k/uL Monocytes # (0-1.0) k/uL Eosinophils # (0-0.7) k/uL Basophils # (0-0.2) k/uL NRBC/100 WBC Diff (0.0-0.0) /100 WBCS PT (9.0-12.0) sec INR (<1.2) APTT (22.0-30.0) sec D-Dimer (<0.60) mg/L FEU Sodium (137-145) mmol/L Potassium (3.5-5.1) mmol/L Chloride (98-107) mmol/L Carbon Dioxide (22-30) mmol/L Anion Gap mmol/L BUN (7-17) mg/dL Creatinine (0.52-1.04) mg/dL Est GFR (CKD-EPI)AfAm (>60 ml/min/1.73 sqM) Est GFR (CKD-EPI)NonAf (>60 ml/min/1.73 sqM) BUN/Creatinine Ratio (12.00-20.00) Ratio Glucose (74-99) mg/dL Lactic Ac Sepsis Rflx Plasma Lactic Acid Guru 3.0 H* (0.7-2.0) mmol/L Calcium (8.4-10.2) mg/dL Magnesium (1.6-2.3) mg/dL Total Bilirubin (0.2-1.3) mg/dL AST (14-36) U/L ALT (4-34) U/L Alkaline Phosphatase (38-126) U/L Troponin I <0.012 (0.000-0.034) ng/mL NT-Pro-B Natriuret Pep 251 pg/mL Total Protein (6.3-8.2) g/dL Albumin (3.5-5.0) g/dL Globulin g/dL Albumin/Globulin Ratio Procalcitonin (0.02-0.09) ng/mL 05/26/22 05/26/22 05/26/22 Range/Units 04:08 06:44 07:34 WBC (3.8-10.6) k/uL RBC (3.80-5.40) m/uL Hgb (11.4-16.0) gm/dL Hct (34.0-46.0) % MCV (80.0-100.0) fL MCH (25.0-35.0) pg MCHC (31.0-37.0) g/dL RDW (11.5-15.5) % Plt Count (150-450) k/uL MPV Absolute Nucleated RBC (0.00-0.00) X 10*3/uL Neutrophils % % Lymphocytes % % Monocytes % % Eosinophils % % Basophils % % Neutrophils # (1.3-7.7) k/uL Lymphocytes # (1.0-4.8) k/uL Monocytes # (0-1.0) k/uL Eosinophils # (0-0.7) k/uL Basophils # (0-0.2) k/uL NRBC/100 WBC Diff (0.0-0.0) /100 WBCS PT (9.0-12.0) sec INR (<1.2) APTT (22.0-30.0) sec D-Dimer (<0.60) mg/L FEU Sodium (137-145) mmol/L Potassium (3.5-5.1) mmol/L Chloride (98-107) mmol/L Carbon Dioxide (22-30) mmol/L Anion Gap mmol/L BUN (7-17) mg/dL Creatinine (0.52-1.04) mg/dL Est GFR (CKD-EPI)AfAm (>60 ml/min/1.73 sqM) Est GFR (CKD-EPI)NonAf (>60 ml/min/1.73 sqM) BUN/Creatinine Ratio (12.00-20.00) Ratio Glucose (74-99) mg/dL Lactic Ac Sepsis Rflx Y Y Plasma Lactic Acid Guru 4.9 H* (0.7-2.0) mmol/L Calcium (8.4-10.2) mg/dL Magnesium (1.6-2.3) mg/dL Total Bilirubin (0.2-1.3) mg/dL AST (14-36) U/L ALT (4-34) U/L Alkaline Phosphatase (38-126) U/L Troponin I (0.000-0.034) ng/mL NT-Pro-B Natriuret Pep pg/mL Total Protein (6.3-8.2) g/dL Albumin (3.5-5.0) g/dL Globulin g/dL Albumin/Globulin Ratio Procalcitonin (0.02-0.09) ng/mL 05/26/22 05/26/22 05/26/22 Range/Units 10:15 10:15 11:05 WBC (3.8-10.6) k/uL RBC (3.80-5.40) m/uL Hgb (11.4-16.0) gm/dL Hct (34.0-46.0) % MCV (80.0-100.0) fL MCH (25.0-35.0) pg MCHC (31.0-37.0) g/dL RDW (11.5-15.5) % Plt Count (150-450) k/uL MPV Absolute Nucleated RBC (0.00-0.00) X 10*3/uL Neutrophils % % Lymphocytes % % Monocytes % % Eosinophils % % Basophils % % Neutrophils # (1.3-7.7) k/uL Lymphocytes # (1.0-4.8) k/uL Monocytes # (0-1.0) k/uL Eosinophils # (0-0.7) k/uL Basophils # (0-0.2) k/uL NRBC/100 WBC Diff (0.0-0.0) /100 WBCS PT (9.0-12.0) sec INR (<1.2) APTT (22.0-30.0) sec D-Dimer (<0.60) mg/L FEU Sodium (137-145) mmol/L Potassium (3.5-5.1) mmol/L Chloride (98-107) mmol/L Carbon Dioxide (22-30) mmol/L Anion Gap mmol/L BUN (7-17) mg/dL Creatinine (0.52-1.04) mg/dL Est GFR (CKD-EPI)AfAm (>60 ml/min/1.73 sqM) Est GFR (CKD-EPI)NonAf (>60 ml/min/1.73 sqM) BUN/Creatinine Ratio (12.00-20.00) Ratio Glucose (74-99) mg/dL Lactic Ac Sepsis Rflx Y Plasma Lactic Acid Guru 6.6 H* (0.7-2.0) mmol/L Calcium (8.4-10.2) mg/dL Magnesium (1.6-2.3) mg/dL Total Bilirubin (0.2-1.3) mg/dL AST (14-36) U/L ALT (4-34) U/L Alkaline Phosphatase (38-126) U/L Troponin I (0.000-0.034) ng/mL NT-Pro-B Natriuret Pep pg/mL Total Protein (6.3-8.2) g/dL Albumin (3.5-5.0) g/dL Globulin g/dL Albumin/Globulin Ratio Procalcitonin 0.08 (0.02-0.09) ng/mL 05/26/22 05/26/22 05/26/22 Range/Units 13:19 14:18 16:39 WBC (3.8-10.6) k/uL RBC (3.80-5.40) m/uL Hgb (11.4-16.0) gm/dL Hct (34.0-46.0) % MCV (80.0-100.0) fL MCH (25.0-35.0) pg MCHC (31.0-37.0) g/dL RDW (11.5-15.5) % Plt Count (150-450) k/uL MPV Absolute Nucleated RBC (0.00-0.00) X 10*3/uL Neutrophils % % Lymphocytes % % Monocytes % % Eosinophils % % Basophils % % Neutrophils # (1.3-7.7) k/uL Lymphocytes # (1.0-4.8) k/uL Monocytes # (0-1.0) k/uL Eosinophils # (0-0.7) k/uL Basophils # (0-0.2) k/uL NRBC/100 WBC Diff (0.0-0.0) /100 WBCS PT (9.0-12.0) sec INR (<1.2) APTT (22.0-30.0) sec D-Dimer (<0.60) mg/L FEU Sodium (137-145) mmol/L Potassium (3.5-5.1) mmol/L Chloride (98-107) mmol/L Carbon Dioxide (22-30) mmol/L Anion Gap mmol/L BUN (7-17) mg/dL Creatinine (0.52-1.04) mg/dL Est GFR (CKD-EPI)AfAm (>60 ml/min/1.73 sqM) Est GFR (CKD-EPI)NonAf (>60 ml/min/1.73 sqM) BUN/Creatinine Ratio (12.00-20.00) Ratio Glucose (74-99) mg/dL Lactic Ac Sepsis Rflx Y Plasma Lactic Acid Guru 6.5 H* 5.1 H* (0.7-2.0) mmol/L Calcium (8.4-10.2) mg/dL Magnesium (1.6-2.3) mg/dL Total Bilirubin (0.2-1.3) mg/dL AST (14-36) U/L ALT (4-34) U/L Alkaline Phosphatase (38-126) U/L Troponin I (0.000-0.034) ng/mL NT-Pro-B Natriuret Pep pg/mL Total Protein (6.3-8.2) g/dL Albumin (3.5-5.0) g/dL Globulin g/dL Albumin/Globulin Ratio Procalcitonin (0.02-0.09) ng/mL 05/26/22 05/26/22 05/26/22 Range/Units 17:47 20:43 21:50 WBC (3.8-10.6) k/uL RBC (3.80-5.40) m/uL Hgb (11.4-16.0) gm/dL Hct (34.0-46.0) % MCV (80.0-100.0) fL MCH (25.0-35.0) pg MCHC (31.0-37.0) g/dL RDW (11.5-15.5) % Plt Count (150-450) k/uL MPV Absolute Nucleated RBC (0.00-0.00) X 10*3/uL Neutrophils % % Lymphocytes % % Monocytes % % Eosinophils % % Basophils % % Neutrophils # (1.3-7.7) k/uL Lymphocytes # (1.0-4.8) k/uL Monocytes # (0-1.0) k/uL Eosinophils # (0-0.7) k/uL Basophils # (0-0.2) k/uL NRBC/100 WBC Diff (0.0-0.0) /100 WBCS PT (9.0-12.0) sec INR (<1.2) APTT (22.0-30.0) sec D-Dimer (<0.60) mg/L FEU Sodium (137-145) mmol/L Potassium (3.5-5.1) mmol/L Chloride (98-107) mmol/L Carbon Dioxide (22-30) mmol/L Anion Gap mmol/L BUN (7-17) mg/dL Creatinine (0.52-1.04) mg/dL Est GFR (CKD-EPI)AfAm (>60 ml/min/1.73 sqM) Est GFR (CKD-EPI)NonAf (>60 ml/min/1.73 sqM) BUN/Creatinine Ratio (12.00-20.00) Ratio Glucose (74-99) mg/dL Lactic Ac Sepsis Rflx Y Y Plasma Lactic Acid Guur 4.1 H* (0.7-2.0) mmol/L Calcium (8.4-10.2) mg/dL Magnesium (1.6-2.3) mg/dL Total Bilirubin (0.2-1.3) mg/dL AST (14-36) U/L ALT (4-34) U/L Alkaline Phosphatase (38-126) U/L Troponin I (0.000-0.034) ng/mL NT-Pro-B Natriuret Pep pg/mL Total Protein (6.3-8.2) g/dL Albumin (3.5-5.0) g/dL Globulin g/dL Albumin/Globulin Ratio Procalcitonin (0.02-0.09) ng/mL 05/27/22 05/27/22 05/27/22 Range/Units 01:03 02:01 04:55 WBC 17.6 H (3.8-10.6) k/uL RBC 3.90 (3.80-5.40) m/uL Hgb 11.2 L (11.4-16.0) gm/dL Hct 34.4 (34.0-46.0) % MCV 88.2 (80.0-100.0) fL MCH 28.8 (25.0-35.0) pg MCHC 32.7 (31.0-37.0) g/dL RDW 13.9 (11.5-15.5) % Plt Count 256 (150-450) k/uL MPV 10.4 Absolute Nucleated RBC (0.00-0.00) X 10*3/uL Neutrophils % 92 % Lymphocytes % 6 % Monocytes % 2 % Eosinophils % 0 % Basophils % 0 % Neutrophils # 16.1 H (1.3-7.7) k/uL Lymphocytes # 1.1 (1.0-4.8) k/uL Monocytes # 0.3 (0-1.0) k/uL Eosinophils # 0.0 (0-0.7) k/uL Basophils # 0.0 (0-0.2) k/uL NRBC/100 WBC Diff (0.0-0.0) /100 WBCS PT (9.0-12.0) sec INR (<1.2) APTT (22.0-30.0) sec D-Dimer (<0.60) mg/L FEU Sodium (137-145) mmol/L Potassium (3.5-5.1) mmol/L Chloride (98-107) mmol/L Carbon Dioxide (22-30) mmol/L Anion Gap mmol/L BUN (7-17) mg/dL Creatinine (0.52-1.04) mg/dL Est GFR (CKD-EPI)AfAm (>60 ml/min/1.73 sqM) Est GFR (CKD-EPI)NonAf (>60 ml/min/1.73 sqM) BUN/Creatinine Ratio (12.00-20.00) Ratio Glucose (74-99) mg/dL Lactic Ac Sepsis Rflx Y Plasma Lactic Acid Guru 3.1 H* (0.7-2.0) mmol/L Calcium (8.4-10.2) mg/dL Magnesium (1.6-2.3) mg/dL Total Bilirubin (0.2-1.3) mg/dL AST (14-36) U/L ALT (4-34) U/L Alkaline Phosphatase (38-126) U/L Troponin I (0.000-0.034) ng/mL NT-Pro-B Natriuret Pep pg/mL Total Protein (6.3-8.2) g/dL Albumin (3.5-5.0) g/dL Globulin g/dL Albumin/Globulin Ratio Procalcitonin (0.02-0.09) ng/mL 05/27/22 05/27/22 05/27/22 Range/Units 04:55 04:55 05:52 WBC (3.8-10.6) k/uL RBC (3.80-5.40) m/uL Hgb (11.4-16.0) gm/dL Hct (34.0-46.0) % MCV (80.0-100.0) fL MCH (25.0-35.0) pg MCHC (31.0-37.0) g/dL RDW (11.5-15.5) % Plt Count (150-450) k/uL MPV Absolute Nucleated RBC (0.00-0.00) X 10*3/uL Neutrophils % % Lymphocytes % % Monocytes % % Eosinophils % % Basophils % % Neutrophils # (1.3-7.7) k/uL Lymphocytes # (1.0-4.8) k/uL Monocytes # (0-1.0) k/uL Eosinophils # (0-0.7) k/uL Basophils # (0-0.2) k/uL NRBC/100 WBC Diff (0.0-0.0) /100 WBCS PT (9.0-12.0) sec INR (<1.2) APTT (22.0-30.0) sec D-Dimer (<0.60) mg/L FEU Sodium 138 (137-145) mmol/L Potassium 4.5 (3.5-5.1) mmol/L Chloride 112 H (98-107) mmol/L Carbon Dioxide 18 L (22-30) mmol/L Anion Gap 8 mmol/L BUN 11 (7-17) mg/dL Creatinine 0.62 (0.52-1.04) mg/dL Est GFR (CKD-EPI)AfAm >90 (>60 ml/min/1.73 sqM) Est GFR (CKD-EPI)NonAf >90 (>60 ml/min/1.73 sqM) BUN/Creatinine Ratio (12.00-20.00) Ratio Glucose 168 H (74-99) mg/dL Lactic Ac Sepsis Rflx Y Plasma Lactic Acid Guru 3.2 H* (0.7-2.0) mmol/L Calcium 8.7 (8.4-10.2) mg/dL Magnesium (1.6-2.3) mg/dL Total Bilirubin 0.2 (0.2-1.3) mg/dL AST 22 (14-36) U/L ALT 19 (4-34) U/L Alkaline Phosphatase 47 (38-126) U/L Troponin I (0.000-0.034) ng/mL NT-Pro-B Natriuret Pep pg/mL Total Protein 6.1 L (6.3-8.2) g/dL Albumin 3.8 (3.5-5.0) g/dL Globulin 2.3 g/dL Albumin/Globulin Ratio 1.7 Procalcitonin (0.02-0.09) ng/mL 05/29/22 05/29/22 Range/Units 08:18 08:18 WBC 11.67 H (3.8-10.6) k/uL RBC 3.92 L (3.80-5.40) m/uL Hgb 11.1 L (11.4-16.0) gm/dL Hct 34.2 L (34.0-46.0) % MCV 87.2 (80.0-100.0) fL MCH 28.3 (25.0-35.0) pg MCHC 32.5 (31.0-37.0) g/dL RDW 14.4 (11.5-15.5) % Plt Count 223 (150-450) k/uL MPV 12.4 H Absolute Nucleated RBC 0 (0.00-0.00) X 10*3/uL Neutrophils % % Lymphocytes % % Monocytes % % Eosinophils % % Basophils % % Neutrophils # (1.3-7.7) k/uL Lymphocytes # (1.0-4.8) k/uL Monocytes # (0-1.0) k/uL Eosinophils # (0-0.7) k/uL Basophils # (0-0.2) k/uL NRBC/100 WBC Diff 0 (0.0-0.0) /100 WBCS PT (9.0-12.0) sec INR (<1.2) APTT (22.0-30.0) sec D-Dimer (<0.60) mg/L FEU Sodium 137 (137-145) mmol/L Potassium 4.4 (3.5-5.1) mmol/L Chloride 105 (98-107) mmol/L Carbon Dioxide 22.8 (22-30) mmol/L Anion Gap 9.20 L mmol/L BUN 18.8 (7-17) mg/dL Creatinine 0.7 (0.52-1.04) mg/dL Est GFR (CKD-EPI)AfAm 116.3 (>60 ml/min/1.73 sqM) Est GFR (CKD-EPI)NonAf 100.3 (>60 ml/min/1.73 sqM) BUN/Creatinine Ratio 26.86 H (12.00-20.00) Ratio Glucose 163 H (74-99) mg/dL Lactic Ac Sepsis Rflx Plasma Lactic Acid Guru (0.7-2.0) mmol/L Calcium 8.7 (8.4-10.2) mg/dL Magnesium (1.6-2.3) mg/dL Total Bilirubin 0.30 (0.2-1.3) mg/dL AST 18 (14-36) U/L ALT 33 (4-34) U/L Alkaline Phosphatase 39 L (38-126) U/L Troponin I (0.000-0.034) ng/mL NT-Pro-B Natriuret Pep pg/mL Total Protein 5.7 L (6.3-8.2) g/dL Albumin 3.8 (3.5-5.0) g/dL Globulin 1.9 g/dL Albumin/Globulin Ratio 2.00 Procalcitonin (0.02-0.09) ng/mL - EKG Data -: EKG Interpreted by Me (EKG sinus 88 IL 201 QRS 82 QTC 434) Disposition Clinical Impression: Acute asthma exacerbation, RSV bronchiolitis, Asthma, Asthma with status asthmaticus, Acute exacerbation of chronic obstructive pulmonary disease Disposition: ADMITTED IP TO THIS HOSP Condition: Stable Is patient prescribed a controlled substance at d/c from ED?: No Time of Disposition: 05:20
[2022-05-26 03:44] LABS: Basophils % (A) 0 %; Eosinophils # (A) 0.3 k/uL (0-0.7); Eosinophils % (A) 2 %; HCT 39.6 % (34.0-46.0); HGB 13.3 gm/dL (11.4-16.0); Lymphocytes # (A) 0.9 k/uL (1.0-4.8); Lymphocytes % (A) 6 %; MCH 28.7 pg (25.0-35.0); MCHC 33.6 g/dL (31.0-37.0); MCV 85.5 fL (80.0-100.0); Monocytes # (A) 0.2 k/uL (0-1.0); Monocytes % (A) 1 %; Neutrophils # (A) 13.4 k/uL (1.3-7.7); Neutrophils % (A) 91 %; Platelet Count 281 k/uL (150-450); RBC 4.63 m/uL (3.80-5.40); RDW 13.1 % (11.5-15.5); WBC 14.7 k/uL (3.8-10.6)
[2022-05-26 03:56] LABS: ALT 24 U/L (4-34); AST 26 U/L (14-36); African American GFR (CKD) >90 (>60 ml/min/1.73 sqM); Albumin 4.3 g/dL (3.5-5.0); Alkaline Phosphatase 54 U/L (38-126); Anion Gap 11 mmol/L; Blood Urea Nitrogen 12 mg/dL (7-17); Calcium 10.6 mg/dL (8.4-10.2); Carbon Dioxide 17 mmol/L (22-30); Chloride 109 mmol/L (98-107); Glucose 176 mg/dL (74-99); Magnesium 1.9 mg/dL (1.6-2.3); Non-African American GFR(CKD) >90 (>60 ml/min/1.73 sqM); Potassium 4.3 mmol/L (3.5-5.1); Sodium 137 mmol/L (137-145); Total Bilirubin 0.3 mg/dL (0.2-1.3); Total Protein 6.9 g/dL (6.3-8.2)
--- NOTE | 2022-05-26 04:01 | XR ---
EXAMINATION TYPE: XR chest 1V portable DATE OF EXAM: 05/26/2022 COMPARISON: NONE HISTORY: Short of breath TECHNIQUE: Single view FINDINGS: Heart is normal. Lungs are clear of consolidation. There are no hilar masses. There is mild linear density in the left lower lobe. Bony thorax is intact. No pleural effusion. There are chest l mendy. IMPRESSION: Mild subsegmental atelectasis left lower lobe. Normal heart.
[2022-05-26 04:14] LABS: INR 0.9 (<1.2)
[2022-05-26 04:15] LABS: Partial Thromboplastin Time 23.3 sec (22.0-30.0); Prothrombin Time 10.1 sec (9.0-12.0)
[2022-05-26] MEDS ORDERED: PNEUMONIA PROTOCOL UTILIZED 1 EACH MISC PO PRN (05:20)
[2022-05-26] MEDS ORDERED: AZITHROMYCIN 500 MG in SODIUM CHLORIDE 0.9% 250 ML IVPB ONE (05:30)
[2022-05-26] MEDS: SODIUM CHLORIDE 0.9% 1,000 ML IV SCH ×2 (05:45→14:45)
[2022-05-26] MEDS: ALBUTEROL NEBULIZED 2.5 MG/3 ML INHALATION SCH ×4 (07:44→19:33)
[2022-05-26] MEDS ORDERED: SODIUM CHLORIDE 0.9% 500 ML 500 ML IV ONE (09:27)
[2022-05-26] MEDS: guaiFENesin 600 MG TABLET.ER PO SCH ×2 (11:56→22:02)
--- NOTE | 2022-05-26 14:03 | P.HPIM ---
History of Present Illness H&P Date: 05/26/22 History of present illness; patient is a 52-year-old lady with past medical history significant for asthma who presented to the ER because of worsening shortness of breath. Patient stated that she has not been feeling well since Sunday. One of her kids were sick with respiratory viral infection. Patient was complaining of chest congestion and productive cough. Patient has been using her inhalers at home but continued to felt bad. Because of worsening shortness of breath patient came to the ER. Patient was worked up in the ER, initial white count was elevated 14.7, hemo globin was 13.3, dimer was normal, sodium was 137, potassium 4.3, chloride 109, bicarbonate 17, initial lactate was 3, repeat was 4.9. Patient had respiratory viral panel done, RSV was positive, influenza A and B and COVID-19 was negative. Patient was started on IV antibiotics and was admitted to hospitalist service REVIEW OF SYSTEMS: CONSTITUTIONAL: No fever, no malaise, no fatigue. HEENT: No recent visual problems or hearing problems. Denied any sore throat. CARDIOVASCULAR: No chest pain, orthopnea, PND, no palpitations, no syncope. PULMONARY: As mentioned in HPI GASTROINTESTINAL: No diarrhea, no nausea, no vomiting, no abdominal pain. NEUROLOGICAL: No headaches, no weakness, no numbness. HEMATOLOGICAL: Denies any bleeding or petechiae. GENITOURINARY: Denies any burning micturition, frequency, or urgency. MUSCULOSKELETAL/RHEUMATOLOGICAL: Denies any joint pain, swelling, or any muscle pain. ENDOCRINE: Denies any polyuria or polydipsia. The rest of the 14-point review of systems is negative. PHYSICAL EXAMINATION: GENERAL: The patient is alert and oriented x3, not in any acute distress. Well developed, well nourished. HEENT: Pupils are round and equally reacting to light. EOMI. No scleral icterus. No conjunctival pallor. Normocephalic, atraumatic. No pharyngeal erythema. No thyromegaly. CARDIOVASCULAR: S1 and S2 present. No murmurs, rubs, or gallops. PULMONARY: Chest is clear to auscultation, no wheezing or crackles. ABDOMEN: Soft, nontender, nondistended, normoactive bowel sounds. No palpable organomegaly. MUSCULOSKELETAL: No joint swelling or deformity. EXTREMITIES: No cyanosis, clubbing, or pedal edema. NEUROLOGICAL: Gross neurological examination did not reveal any focal deficits. SKIN: No rashes. Assessment and plan RSV infection Acute asthma exacerbation Lactic acidosis secondary to breathing treatments Plan; Monitor vital signs Monitor CBC Check pro-Adriano Lactate levels elevated secondary to breathing treatments. Blood cultures ordered. Continue IV antibiotics Continue IV steroids Consult pulmonology DVT prophylaxis: Past Medical History Past Medical History: Asthma, GERD/Reflux Additional Past Medical History / Comment(s): seasonal allergies-Immunotherapy, Severe asthma (failed Fasenra currently on Spiriva and Symbicort and Tezspire and steroid dependent 10-20 mg mainteinace and frequent tapers), covid pneumonia in Aug 2020 History of Any Multi-Drug Resistant Organisms: None Reported Past Surgical History: Cholecystectomy, Ear Surgery, Hysterectomy Additional Past Surgical History / Comment(s): Right ear sinus infection - tube in place, Colonoscopy, repair of hiatal hernia, throat surgery Past Anesthesia/Blood Transfusion Reactions: No Reported Reaction Past Psychological History: Anxiety Smoking Status: Never smoker Past Alcohol Use History: Rare Past Drug Use History: None Reported - Past Family History Mother Family Medical History: Cancer Additional Family Medical History / Comment(s): colon cancer Father Family Medical History: Cancer Additional Family Medical History / Comment(s): prostate, bladder, skin cancers Medications and Allergies Home Medications Medication Instructions Recorded Confirmed Type Albuterol Nebulized [Ventolin 2.5 mg INHALATION RT-QID PRN 11/19/19 05/26/22 History Nebulized] Montelukast [Singulair] 10 mg PO DAILY 11/19/19 05/26/22 History Albuterol Inhaler [Ventolin Hfa 1 - 2 puff INHALATION RT-QID PRN 12/30/19 05/26/22 History Inhaler] Levocetirizine Dihydrochloride 5 mg PO DAILY 03/22/20 05/26/22 History [Xyzal] Budesonide-Formot 160-4.5 Mcg 2 puff INHALATION RT-BID 11/29/21 05/26/22 History [Symbicort 160-4.5 Mcg Inhaler] Omeprazole [PriLOSEC] 40 mg PO DAILY #14 cap 12/01/21 05/26/22 Rx Diphenoxylate HCl/Atropine 1 tab PO QID PRN 05/26/22 05/26/22 History [Lomotil 2.5-0.025 mg Tablet] Spiriva Respimat 1.25 Mcg Inhaler 2 puff INHALATION RT-DAILY 05/26/22 05/26/22 History predniSONE [Deltasone] 20 mg PO BID 05/26/22 05/26/22 History Allergies Allergy/AdvReac Type Severity Reaction Status Date / Time almond Allergy Anaphylaxis Verified 05/26/22 11:29 cashew nut Allergy Anaphylaxis Verified 05/26/22 11:29 Iodine and Iodide Containing Allergy avoids due Verified 05/26/22 11:29 Produc to severe shellfish allergy shellfish derived [Shellfish] Allergy Anaphylaxis Verified 05/26/22 11:29 tree nut [Nut] Allergy Anaphylaxis Verified 05/26/22 11:29 Physical Exam Vitals: Vital Signs Temp Pulse Pulse Resp BP BP Pulse Ox 05/26/22 13:14 98.1 F 110 H 16 122/59 99 05/26/22 11:28 90 05/26/22 11:15 88 05/26/22 07:56 94 05/26/22 07:44 92 05/26/22 07:00 97.8 F 96 16 122/73 98 05/26/22 05:31 114 H 18 132/74 98 05/26/22 05:10 117 H 18 130/75 99 05/26/22 04:20 110 H 05/26/22 04:10 96 05/26/22 04:02 89 05/26/22 03:00 18 05/26/22 02:52 94 18 138/80 96 05/26/22 02:39 97.6 F 99 18 138/73 97 Intake and Output 05/25/22 05/26/22 05/26/22 22:59 06:59 14:59 Intake Total 240 Balance 240 Intake: Oral 240 Other: # Voids 1 Weight 86.183 kg 86.183 kg Results CBC & Chem 7: 05/26/22 03:23 05/26/22 03:23 Labs: Abnormal Lab Results - Last 24 Hours (Table) 05/26/22 05/26/22 05/26/22 Range/Units 03:23 03:23 03:23 WBC 14.7 H (3.8-10.6) k/uL Neutrophils # 13.4 H (1.3-7.7) k/uL Lymphocytes # 0.9 L (1.0-4.8) k/uL Chloride 109 H (98-107) mmol/L Carbon Dioxide 17 L (22-30) mmol/L Glucose 176 H (74-99) mg/dL Plasma Lactic Acid Guru 3.0 H* (0.7-2.0) mmol/L Calcium 10.6 H (8.4-10.2) mg/dL 05/26/22 05/26/22 Range/Units 06:44 10:15 WBC (3.8-10.6) k/uL Neutrophils # (1.3-7.7) k/uL Lymphocytes # (1.0-4.8) k/uL Chloride (98-107) mmol/L Carbon Dioxide (22-30) mmol/L Glucose (74-99) mg/dL Plasma Lactic Acid Guru 4.9 H* 6.6 H* (0.7-2.0) mmol/L Calcium (8.4-10.2) mg/dL
[2022-05-26] MEDS: methylPREDNISolone SOD SUCCI 125 MG/2 ML VIAL IV SCH ×2 (14:42→17:30)
--- NOTE | 2022-05-26 17:31 | P.CNPUL ---
History of Present Illness Consult date: 05/26/22 Reason for consult: dyspnea History of present illness: This is a 52-year-old female patient with history of severe persistent bronchial asthma and the patient was diagnosed having at night at a young age. The patient has been on a very complicated course of treatment over the past few years. In summary, she has history of ALLERGIC bronchi and asthma. She states that she's been ALLERGIC to almost everything as far as aeroallergens. She is currently receiving immunotherapy. This is her second round of immunotherapy which is receiving through her micro lab analyst. She has also seen by pulmonology in the past. She has been treated with various inhalers and currently she will examination of Symbicort and Spiriva. She was given Fasenra and she did not respond to Fasenra this was switched to Tezspire approximately 6 months ago. She has seen some limited improvement. She has a quite frequent steroid treatment. At one point, she was on a maintenance of prednisone ranging between 10 and 20 mg. She has received multiple prednisone burst taper. She is currently off steroids. She came into the hospital because of worsening shortness of breath. She was diagnosed having positive RSV infection. Her asthma is currently exacerbated. No aspirin sensitivity. No nasal polyposis. No skin rashes. No chest pain. No smoking. No exposure to organic or inorganic dusts. No aspiration. No heartburn. She has developed some obesity over the years because of her severe asthma and steroid requirement. She is also on Singulair, as has been in the form of Xyzal. Review of Systems Constitutional: Reports as per HPI, Reports fatigue, Reports weight gain Eyes: denies as per HPI, denies blurred vision, denies bulging eye, denies decreased vision, denies diplopia, denies discharge, denies dry eye, denies irritation, denies itching, denies pain, denies photophobia, denies loss of peripheral vision, denies loss of vision, denies tunnel vision/blind spots Ears: deny: decreased hearing, ear discharge, earache, tinnitus Ears, nose, mouth and throat: Reports as per HPI Breasts: absent: as per HPI, change in shape, gynecomastia, masses, nipple discharge, pain, skin changes, swelling Cardiovascular: Reports as per HPI, Reports decreased exercise tolerance, Reports dyspnea on exertion Respiratory: Reports as per HPI, Reports cough, Reports dyspnea, Reports snoring, Reports wheezing Gastrointestinal: Reports as per HPI Genitourinary: Reports as per HPI Menstruation: Reports as per HPI Musculoskeletal: Reports as per HPI Musculoskeletal: absent: ankle pain, ankle stiffness, ankle swelling, as per HPI, elbow pain, elbow stiffness, elbow swelling, foot pain, foot stiffness, foot swelling, hand pain, hand stiffness, hand swelling, hip pain, hip stiffness, hip swelling, knee pain, knee stiffness, knee swelling, shoulder pain, shoulder stiffness, shoulder swelling, wrist pain, wrist stiffness, wrist swelling Integumentary: Reports as per HPI Neurological: Reports as per HPI Psychiatric: Reports as per HPI Endocrine: Reports as per HPI Hematologic/Lymphatic: Reports as per HPI Allergic/Immunologic: Reports allergic rhinitis Past Medical History Past Medical History: Asthma, GERD/Reflux Additional Past Medical History / Comment(s): seasonal allergies-Immunotherapy, Severe asthma (failed Fasenra currently on Spiriva and Symbicort and Tezspire and steroid dependent 10-20 mg mainteinace and frequent tapers), covid pneumonia in Aug 2020 History of Any Multi-Drug Resistant Organisms: None Reported Past Surgical History: Cholecystectomy, Ear Surgery, Hysterectomy Additional Past Surgical History / Comment(s): Right ear sinus infection - tube in place, Colonoscopy, repair of hiatal hernia, throat surgery Past Anesthesia/Blood Transfusion Reactions: No Reported Reaction Past Psychological History: Anxiety Smoking Status: Never smoker Past Alcohol Use History: Rare Past Drug Use History: None Reported - Past Family History Mother Family Medical History: Cancer Additional Family Medical History / Comment(s): colon cancer Father Family Medical History: Cancer Additional Family Medical History / Comment(s): prostate, bladder, skin cancers Medications and Allergies Home Medications Medication Instructions Recorded Confirmed Type Albuterol Nebulized [Ventolin 2.5 mg INHALATION RT-QID PRN 11/19/19 05/26/22 History Nebulized] Montelukast [Singulair] 10 mg PO DAILY 11/19/19 05/26/22 History Albuterol Inhaler [Ventolin Hfa 1 - 2 puff INHALATION RT-QID PRN 12/30/19 05/26/22 History Inhaler] Levocetirizine Dihydrochloride 5 mg PO DAILY 03/22/20 05/26/22 History [Xyzal] Budesonide-Formot 160-4.5 Mcg 2 puff INHALATION RT-BID 11/29/21 05/26/22 History [Symbicort 160-4.5 Mcg Inhaler] Omeprazole [PriLOSEC] 40 mg PO DAILY #14 cap 12/01/21 05/26/22 Rx Diphenoxylate HCl/Atropine 1 tab PO QID PRN 05/26/22 05/26/22 History [Lomotil 2.5-0.025 mg Tablet] Spiriva Respimat 1.25 Mcg Inhaler 2 puff INHALATION RT-DAILY 05/26/22 05/26/22 History predniSONE [Deltasone] 20 mg PO BID 05/26/22 05/26/22 History Allergies Allergy/AdvReac Type Severity Reaction Status Date / Time almond Allergy Anaphylaxis Verified 05/26/22 11:29 cashew nut Allergy Anaphylaxis Verified 05/26/22 11:29 Iodine and Iodide Containing Allergy avoids due Verified 05/26/22 11:29 Produc to severe shellfish allergy shellfish derived [Shellfish] Allergy Anaphylaxis Verified 05/26/22 11:29 tree nut [Nut] Allergy Anaphylaxis Verified 05/26/22 11:29 Physical Exam Vitals: Vital Signs Temp Pulse Pulse Resp BP BP Pulse Ox 05/26/22 13:14 98.1 F 110 H 16 122/59 99 05/26/22 11:28 90 05/26/22 11:15 88 05/26/22 07:56 94 05/26/22 07:44 92 05/26/22 07:00 97.8 F 96 16 122/73 98 05/26/22 05:31 114 H 18 132/74 98 05/26/22 05:10 117 H 18 130/75 99 05/26/22 04:20 110 H 05/26/22 04:10 96 05/26/22 04:02 89 05/26/22 03:00 18 05/26/22 02:52 94 18 138/80 96 05/26/22 02:39 97.6 F 99 18 138/73 97 Intake and Output 05/25/22 05/26/22 05/26/22 22:59 06:59 14:59 Intake Total 240 Balance 240 Intake: Oral 240 Other: # Voids 1 Weight 86.183 kg 86.183 kg GENERAL: The patient is alert and oriented x3, not in any acute distress. Well developed, well nourished. Head exam was generally normal. There was no scleral icterus or corneal arcus. Mucous membranes were moist. HEENT: Pupils are round and equally reacting to light. EOMI. No scleral icterus. No conjunctival pallor. Normocephalic, atraumatic. No pharyngeal erythema. No thyromegaly. CARDIOVASCULAR: S1 and S2 present. No murmurs, rubs, or gallops. PULMONARY: Diminished breath sounds along with diffuse extremity wheezes throughout blunted bilaterally and the patient has prolongation of the exhalation phase of breathing ABDOMEN: Soft, nontender, nondistended, normoactive bowel sounds. No palpable organomegaly. MUSCULOSKELETAL: No joint swelling or deformity. EXTREMITIES: No cyanosis, clubbing, or pedal edema. NEUROLOGICAL: Gross neurological examination did not reveal any focal deficits. SKIN: No rashes. Results - Laboratory Findings CBC and BMP: 05/26/22 03:23 05/26/22 03:23 PT/INR, D-dimer PT 10.1 sec (9.0-12.0) 05/26/22 03:23 INR 0.9 (<1.2) 05/26/22 03:23 D-Dimer 0.42 mg/L FEU (<0.60) 05/26/22 03:23 Abnormal lab findings: Abnormal Labs 05/26/22 05/26/22 05/26/22 03:23 03:23 03:23 WBC 14.7 H Neutrophils # 13.4 H Lymphocytes # 0.9 L Chloride 109 H Carbon Dioxide 17 L Glucose 176 H Plasma Lactic Acid Guru 3.0 H* Calcium 10.6 H 05/26/22 05/26/22 06:44 10:15 WBC Neutrophils # Lymphocytes # Chloride Carbon Dioxide Glucose Plasma Lactic Acid Guru 4.9 H* 6.6 H* Calcium - Diagnostic Findings Chest x-ray: image reviewed Assessment and Plan Plan: Acute exacerbation of severe persistent bronchial asthma secondary to RSV tracheobronchitis RSV to bronchitis, no indication for pneumonia, Pro calcitonin is low and bacterial pneumonia is felt to be less likely History of severe persistent ALLERGIC bronchial asthma maintained on examination of Symbicort and Spiriva and currently she is on Tezspire. The patient has required frequent steroid treatment in the past Multiple environmental ALLERGIES currently on immunotherapy History of obesity related to repeated steroid use Mild lactic acidosis probably related to underlying infection/labored breathing Plan DuoNeb nebulized treatments [id number] Start The patient accommodation Perforomist and Pulmicort neb regimen twice a day IV Solu-Medrol Antibiotics coverage is essentially empiric We'll stabilize her condition will hopefully treated on outpatient basis with Biologics. She is currently on Tezspire
[2022-05-26] MEDS: FORMOTEROL FUMARATE 20 MCG/2 ML NEBU INHALATION SCH (19:34)
[2022-05-26] MEDS: BUDESONIDE 0.5 MG/2 ML NEBU INHALATION SCH (19:34)
[2022-05-26] MEDS: ACETAMINOPHEN TAB 325 MG TAB PO PRN (22:02)
[2022-05-26] MEDS: ALBUTEROL NEBULIZED 2.5 MG/3 ML INHALATION PRN (22:31)
[2022-05-26] MEDS: MELATONIN 3 MG TABLET PO SCH (22:49)
[2022-05-27] MEDS: methylPREDNISolone SOD SUCCI 125 MG/2 ML VIAL IV SCH ×4 (00:14→17:24)
[2022-05-27] MEDS: ALBUTEROL NEBULIZED 2.5 MG/3 ML INHALATION PRN (03:43)
[2022-05-27 05:36] LABS: Basophils % (A) 0 %; Eosinophils % (A) 0 %; HCT 34.4 % (34.0-46.0); HGB 11.2 gm/dL (11.4-16.0); Lymphocytes # (A) 1.1 k/uL (1.0-4.8); Lymphocytes % (A) 6 %; MCH 28.8 pg (25.0-35.0); MCHC 32.7 g/dL (31.0-37.0); MCV 88.2 fL (80.0-100.0); Mean Platelet Volume 10.4; Monocytes # (A) 0.3 k/uL (0-1.0); Monocytes % (A) 2 %; Neutrophils # (A) 16.1 k/uL (1.3-7.7); Neutrophils % (A) 92 %; Platelet Count 256 k/uL (150-450); RDW 13.9 % (11.5-15.5); WBC 17.6 k/uL (3.8-10.6)
[2022-05-27 05:51] LABS: ALT 19 U/L (4-34); AST 22 U/L (14-36); African American GFR (CKD) >90 (>60 ml/min/1.73 sqM); Albumin 3.8 g/dL (3.5-5.0); Albumin/Globulin Ratio 1.7; Alkaline Phosphatase 47 U/L (38-126); Anion Gap 8 mmol/L; Blood Urea Nitrogen 11 mg/dL (7-17); Calcium 8.7 mg/dL (8.4-10.2); Carbon Dioxide 18 mmol/L (22-30); Chloride 112 mmol/L (98-107); Globulin 2.3 g/dL; Glucose 168 mg/dL (74-99); Non-African American GFR(CKD) >90 (>60 ml/min/1.73 sqM); Potassium 4.5 mmol/L (3.5-5.1); Sodium 138 mmol/L (137-145); Total Bilirubin 0.2 mg/dL (0.2-1.3); Total Protein 6.1 g/dL (6.3-8.2)
[2022-05-27] MEDS: PANTOPRAZOLE 40 MG TABLET PO SCH (06:10)
[2022-05-27] MEDS: ACETAMINOPHEN TAB 325 MG TAB PO PRN ×2 (06:14→17:23)
[2022-05-27] MEDS: SODIUM CHLORIDE 0.9% 1,000 ML IV SCH ×3 (07:50→22:26)
[2022-05-27] MEDS: BUDESONIDE 0.5 MG/2 ML NEBU INHALATION SCH ×2 (07:52→20:26)
[2022-05-27] MEDS: FORMOTEROL FUMARATE 20 MCG/2 ML NEBU INHALATION SCH ×2 (07:52→20:26)
[2022-05-27] MEDS: ALBUTEROL NEBULIZED 2.5 MG/3 ML INHALATION SCH ×4 (07:52→20:25)
--- NOTE | 2022-05-27 08:37 | XR ---
EXAMINATION TYPE: XR chest 1V DATE OF EXAM: 05/27/2022 COMPARISON: 05/26/2022 HISTORY: Shortness of breath TECHNIQUE: Single frontal view of the chest is obtained. FINDINGS: There is no focal air space opacity, pleural effusion, or pneumothorax seen. The cardiac silhouette size is within normal limits. The osseous structures are intact. IMPRESSION: No acute cardiopulmonary disease with no interval change.
[2022-05-27] MEDS: AZITHROMYCIN 500 MG TAB PO SCH (08:53)
[2022-05-27] MEDS: MONTELUKAST 10 MG TAB PO SCH (08:53)
[2022-05-27] MEDS: guaiFENesin 600 MG TABLET.ER PO SCH ×2 (08:53→22:26)
--- NOTE | 2022-05-27 13:55 | P.PN ---
Subjective Progress Note Date: 05/27/22 patient is a 52-year-old lady with past medical history significant for asthma who presented to the ER because of worsening shortness of breath. Patient stated that she has not been feeling well since Sunday. One of her kids were sick with respiratory viral infection. Patient was complaining of chest congestion and productive cough. Patient has been using her inhalers at home but continued to felt bad. Because of worsening shortness of breath patient came to the ER. Patient was worked up in the ER, initial white count was elevated 14.7, hemoglobin was 13.3, dimer was normal, sodium was 137, potassium 4.3, chloride 109, bicarbonate 17, initial lactate was 3, repeat was 4.9. Patient had respiratory viral panel done, RSV was positive, influenza A and B and COVID-19 was negative. Patient was started on IV antibiotics and was admitted to hospitalist service 05/27. Patient seen and examined. States cough is still present, but is dry. Not productive. Shortness of breath is improving. Slightly tachycardic. REVIEW OF SYSTEMS: CONSTITUTIONAL: No fever, no malaise,. CARDIOVASCULAR: No chest pain, no palpitations, no syncope. GASTROINTESTINAL: No diarrhea, no nausea, no vomiting, no abdominal pain. NEUROLOGICAL: No headaches, no weakness, PHYSICAL EXAMINATION: GENERAL: The patient is alert and oriented x3, not in any acute distress. Well developed, well nourished. HEENT: Pupils are round and equally reacting to light. EOMI. No scleral icterus. No conjunctival pallor. Normocephalic, atraumatic. No pharyngeal erythema. No thyromegaly. CARDIOVASCULAR: S1 and S2 present. No murmurs, rubs, or gallops. PULMONARY: Chest is clear to auscultation, no wheezing or crackles. ABDOMEN: Soft, nontender, nondistended, normoactive bowel sounds. No palpable o rganomegaly. MUSCULOSKELETAL: No joint swelling or deformity. EXTREMITIES: No cyanosis, clubbing, or pedal edema. NEUROLOGICAL: Gross neurological examination did not reveal any focal deficits. SKIN: No rashes. Assessment and plan RSV tracheobronchitis Acute asthma exacerbation Lactic acidosis secondary to breathing treatments Plan; Monitor vital signs Monitor CBC Check pro-Adriano Lactate levels elevated secondary to breathing treatments. Blood cultures ordered. Continue IV antibiotics Continue IV steroids Consult pulmonology DVT prophylaxis: Objective - Vital Signs Vital signs: Vital Signs Temp 98.1 F 05/27/22 07:00 Pulse 92 05/27/22 11:43 Resp 17 05/27/22 07:00 BP 131/70 05/27/22 07:00 Pulse Ox 95 05/27/22 07:00 FiO2 Intake & Output 05/26/22 05/27/22 05/27/22 18:59 06:59 18:59 Intake Total 578 800 118 Balance 578 800 118 Weight 86.183 kg Intake: Intake, IV Titration 800 Amount Sodium Chloride 0.9% 1, 800 000 ml @ 999 mls/hr IV . Q1H1M STA Rx#:[id number] Oral 578 118 Other: # Voids 1 2 - Labs CBC & Chem 7: 05/27/22 04:55 05/27/22 04:55 Labs: Abnormal Lab Results - Last 24 Hours (Table) 05/26/22 05/26/22 05/26/22 Range/Units 13:19 16:39 20:43 WBC (3.8-10.6) k/uL Hgb (11.4-16.0) gm/dL Neutrophils # (1.3-7.7) k/uL Chloride (98-107) mmol/L Carbon Dioxide (22-30) mmol/L Glucose (74-99) mg/dL Plasma Lactic Acid Guru 6.5 H* 5.1 H* 4.1 H* (0.7-2.0) mmol/L Total Protein (6.3-8.2) g/dL 05/27/22 05/27/22 05/27/22 Range/Units 01:03 04:55 04:55 WBC 17.6 H (3.8-10.6) k/uL Hgb 11.2 L (11.4-16.0) gm/dL Neutrophils # 16.1 H (1.3-7.7) k/uL Chloride 112 H (98-107) mmol/L Carbon Dioxide 18 L (22-30) mmol/L Glucose 168 H (74-99) mg/dL Plasma Lactic Acid Guru 3.1 H* (0.7-2.0) mmol/L Total Protein 6.1 L (6.3-8.2) g/dL 05/27/22 Range/Units 04:55 WBC (3.8-10.6) k/uL Hgb (11.4-16.0) gm/dL Neutrophils # (1.3-7.7) k/uL Chloride (98-107) mmol/L Carbon Dioxide (22-30) mmol/L Glucose (74-99) mg/dL Plasma Lactic Acid Guru 3.2 H* (0.7-2.0) mmol/L Total Protein (6.3-8.2) g/dL Microbiology - Last 24 Hours (Table) 05/27/22 08:32 Sputum Culture - Preliminary Sputum 05/26/22 05:40 Blood Culture - Preliminary Blood No Growth after 24 hours 05/26/22 05:25 Blood Culture - Preliminary Blood No Growth after 24 hours
[2022-05-27] MEDS: PROMETHAZINE 25 MG TAB PO PRN (16:24)
--- NOTE | 2022-05-27 16:42 | P.PN ---
Subjective Progress Note Date: 05/27/22 This is a 52-year-old female patient with history of severe persistent bronchial asthma and the patient was diagnosed having at night at a young age. The patient has been on a very complicated course of treatment over the past few years. In summary, she has history of ALLERGIC bronchi and asthma. She states that she's been ALLERGIC to almost everything as far as aeroallergens. She is currently receiving immunotherapy. 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 She has also seen by pulmonology in the past. She has been treated with various inhalers and currently she will examination of Symbicort and Spiriva. She was given Fasenra and she did not respond to Fasenra this was switched to Tezspire approximately 6 months ago. She has seen some limited improvement. She has a quite frequent steroid treatment. At one point, she was on a maintenance of prednisone ranging between 10 and 20 mg. She has received multiple prednisone burst taper. She is currently off steroids. She came into the hospital because of worsening shortness of breath. She was diagnosed having positive RSV infection. Her asthma is currently exacerbated. No aspirin sensitivity. No nasal polyposis. No skin rashes. No chest pain. No smoking. No exposure to organic or inorganic dusts. No aspiration. No heartburn. She has developed some obesity over the years because of her severe asthma and steroid requirement. She is also on Singulair, as has been in the form of Xyzal. On today's evaluation of 05/27/2022, limited improvement since yesterday and the patient continues to have frequent coughing episodes, chest wall pain, bronchos pasm, wheezing and shortness of breath despite being on a combination of DuoNeb about treatments [id number], IV Solu-Medrol, Perforomist and Pulmicort neb treatments twice a day. No fever. No chills. No other new complaints otherwise. Objective - Vital Signs Vital signs: Vital Signs Temp 98.6 F 05/27/22 14:41 Pulse 90 05/27/22 15:35 Resp 17 05/27/22 14:41 BP 133/65 05/27/22 14:41 Pulse Ox 96 05/27/22 15:19 FiO2 Intake & Output 05/26/22 05/27/22 05/27/22 18:59 06:59 18:59 Intake Total 578 800 118 Balance 578 800 118 Weight 86.183 kg Intake: Intake, IV Titration 800 Amount Sodium Chloride 0.9% 1, 800 000 ml @ 999 mls/hr IV . Q1H1M STA Rx#:[id number] Oral 578 118 Other: # Voids 1 2 2 - Exam GENERAL: The patient is alert and oriented x3, not in any acute distress. Well developed, well nourished. Head exam was generally normal. There was no scleral icterus or corneal arcus. Mucous membranes were moist. HEENT: Pupils are round and equally reacting to light. EOMI. No scleral icterus. No conjunctival pallor. Normocephalic, atraumatic. No pharyngeal erythema. No thyromegaly. CARDIOVASCULAR: S1 and S2 present. No murmurs, rubs, or gallops. PULMONARY: Diminished breath sounds along with diffuse extremity wheezes throughout blunted bilaterally and the patient has prolongation of the exhalation phase of breathing ABDOMEN: Soft, nontender, nondistended, normoactive bowel sounds. No palpable organomegaly. MUSCULOSKELETAL: No joint swelling or deformity. EXTREMITIES: No cyanosis, clubbing, or pedal edema. NEUROLOGICAL: Gross neurological examination did not reveal any focal deficits. SKIN: No rashes. - Labs CBC & Chem 7: 05/27/22 04:55 05/27/22 04:55 Labs: Abnormal Lab Results - Last 24 Hours (Table) 05/26/22 05/26/22 05/27/22 Range/Units 16:39 20:43 01:03 WBC (3.8-10.6) k/uL Hgb (11.4-16.0) gm/dL Neutrophils # (1.3-7.7) k/uL Chloride (98-107) mmol/L Carbon Dioxide (22-30) mmol/L Glucose (74-99) mg/dL Plasma Lactic Acid Guru 5.1 H* 4.1 H* 3.1 H* (0.7-2.0) mmol/L Total Protein (6.3-8.2) g/dL 05/27/22 05/27/22 05/27/22 Range/Units 04:55 04:55 04:55 WBC 17.6 H (3.8-10.6) k/uL Hgb 11.2 L (11.4-16.0) gm/dL Neutrophils # 16.1 H (1.3-7.7) k/uL Chloride 112 H (98-107) mmol/L Carbon Dioxide 18 L (22-30) mmol/L Glucose 168 H (74-99) mg/dL Plasma Lactic Acid Guru 3.2 H* (0.7-2.0) mmol/L Total Protein 6.1 L (6.3-8.2) g/dL Microbiology - Last 24 Hours (Table) 05/27/22 08:32 Sputum Culture - Preliminary Sputum 05/26/22 05:40 Blood Culture - Preliminary Blood No Growth after 24 hours 05/26/22 05:25 Blood Culture - Preliminary Blood No Growth after 24 hours Assessment and Plan Plan: Acute exacerbation of severe persistent bronchial asthma secondary to RSV tracheobronchitis RSV to bronchitis, no indication for pneumonia, Pro calcitonin is low and bacterial pneumonia is felt to be less likely History of severe persistent ALLERGIC bronchial asthma maintained on examination of Symbicort and Spiriva and currently she is on Tezspire. The patient has required frequent steroid treatment in the past Multiple environmental ALLERGIES currently on immunotherapy History of obesity related to repeated steroid use Mild lactic acidosis probably related to underlying infection/labored breathing Plan Continue same treatment Promethazine for cough as the patient is having some chest wall pain due to extensive cough and DuoNeb nebulized treatments [id number] Start The patient accommodation Perforomist and Pulmicort neb regimen twice a day IV Solu-Medrol Antibiotics coverage is essentially empiric No other changes on the medication will be done We'll stabilize her condition will hopefully treated on outpatient basis with Biologics. She is currently on Tezspire
[2022-05-27] MEDS: MELATONIN 3 MG TABLET PO SCH (22:26)
[2022-05-28] MEDS ORDERED: ALBUTEROL NEBULIZED 2.5 MG/3 ML INHALATION ONE (00:02)
[2022-05-28] MEDS: PROMETHAZINE 25 MG TAB PO PRN ×4 (00:08→21:25)
[2022-05-28] MEDS: methylPREDNISolone SOD SUCCI 125 MG/2 ML VIAL IV SCH ×4 (00:09→18:27)
[2022-05-28] MEDS: SODIUM CHLORIDE 0.9% 1,000 ML IV SCH (06:45)
[2022-05-28] MEDS: PANTOPRAZOLE 40 MG TABLET PO SCH (06:45)
[2022-05-28] MEDS: BUDESONIDE 0.5 MG/2 ML NEBU INHALATION SCH ×2 (08:05→19:36)
[2022-05-28] MEDS: FORMOTEROL FUMARATE 20 MCG/2 ML NEBU INHALATION SCH ×2 (08:05→19:36)
[2022-05-28] MEDS: ALBUTEROL NEBULIZED 2.5 MG/3 ML INHALATION SCH ×4 (08:05→19:36)
[2022-05-28] MEDS: ACETAMINOPHEN TAB 325 MG TAB PO PRN ×2 (09:53→16:50)
[2022-05-28] MEDS: AZITHROMYCIN 500 MG TAB PO SCH (09:54)
[2022-05-28] MEDS: MONTELUKAST 10 MG TAB PO SCH (09:54)
[2022-05-28] MEDS: guaiFENesin 600 MG TABLET.ER PO SCH ×2 (09:54→20:41)
--- NOTE | 2022-05-28 10:54 | P.PN ---
Subjective Progress Note Date: 05/28/22 patient is a 52-year-old lady with past medical history significant for asthma who presented to the ER because of worsening shortness of breath. Patient stated that she has not been feeling well since Sunday. One of her kids were sick with respiratory viral infection. Patient was complaining of chest congestion and productive cough. Patient has been using her inhalers at home but continued to felt bad. Because of worsening shortness of breath patient came to the ER. Patient was worked up in the ER, initial white count was elevated 14.7, hemoglobin was 13.3, dimer was normal, sodium was 137, potassium 4.3, chloride 109, bicarbonate 17, initial lactate was 3, repeat was 4.9. Patient had respiratory viral panel done, RSV was positive, influenza A and B and COVID-19 was negative. Patient was started on IV antibiotics and was admitted to hospitalist service 05/27. Patient seen and examined. States cough is still present, but is dry. Not productive. Shortness of breath is improving. Slightly tachycardic. 05/28. Still complaining of congestion. Shortness of breath is improved. Cough has also improved. Vital signs stable. REVIEW OF SYSTEMS: CONSTITUTIONAL: No fever, no malaise,. CARDIOVASCULAR: No chest pain, no palpitations, no syncope. GASTROINTESTINAL: No diarrhea, no abdominal pain. NEUROLOGICAL: No headaches, no weakness, PHYSICAL EXAMINATION: GENERAL: The patient is alert and oriented x3, not in any acute distress. Well developed, well nourished. HEENT: Pupils are round and equally reacting to light. EOMI. No scleral icterus. No conjunctival pallor. Normocephalic, atraumatic. No pharyngeal erythema. No thyromegaly. CARDIOVASCULAR: S1 and S2 present. No murmurs, rubs, or gallops. PULMONARY: Chest is clear to auscultation, no wheezing or crackles. ABDOMEN: Soft, nontender, nondistended, normoactive bowel sounds. No palpable or ganomegaly. MUSCULOSKELETAL: No joint swelling or deformity. EXTREMITIES: No cyanosis, clubbing, or pedal edema. NEUROLOGICAL: Gross neurological examination did not reveal any focal deficits. SKIN: No rashes. Assessment and plan RSV tracheobronchitis Acute asthma exacerbation Lactic acidosis secondary to breathing treatments Plan; Monitor vital signs Monitor CBC Monitor renal functions Lactate levels elevated secondary to breathing treatments. Blood cultures are negative Continue IV Rocephin Continue IV steroids Follow-up on pulmonary recommendations DVT prophylaxis: Objective - Vital Signs Vital signs: Vital Signs Temp 98 F 05/28/22 07:00 Pulse 88 05/28/22 08:34 Resp 17 05/28/22 07:00 BP 158/90 05/28/22 07:00 Pulse Ox 95 05/28/22 07:00 FiO2 Intake & Output 05/27/22 05/28/22 05/28/22 18:59 06:59 18:59 Intake Total 118 100 Balance 118 100 Intake: Oral 118 100 Other: # Voids 2 2 - Labs CBC & Chem 7: 05/27/22 04:55 05/27/22 04:55 Labs: Microbiology - Last 24 Hours (Table) 05/26/22 05:40 Blood Culture - Preliminary Blood No Growth after 48 hours 05/26/22 05:25 Blood Culture - Preliminary Blood No Growth after 48 hours 05/27/22 08:32 Gram Stain - Preliminary Sputum Sputum Culture - Preliminary
--- NOTE | 2022-05-28 15:26 | P.PN ---
Subjective Progress Note Date: 05/28/22 This is a 52-year-old female patient with history of severe persistent bronchial asthma and the patient was diagnosed having at night at a young age. The patient has been on a very complicated course of treatment over the past few years. In summary, she has history of ALLERGIC bronchi and asthma. She states that she's been ALLERGIC to almost everything as far as aeroallergens. She is currently receiving immunotherapy. 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 She has also seen by pulmonology in the past. She has been treated with various inhalers and currently she will examination of Symbicort and Spiriva. She was given Fasenra and she did not respond to Fasenra this was switched to Tezspire approximately 6 months ago. She has seen some limited improvement. She has a quite frequent steroid treatment. At one point, she was on a maintenance of prednisone ranging between 10 and 20 mg. She has received multiple prednisone burst taper. She is currently off steroids. She came into the hospital because of worsening shortness of breath. She was diagnosed having positive RSV infection. Her asthma is currently exacerbated. No aspirin sensitivity. No nasal polyposis. No skin rashes. No chest pain. No smoking. No exposure to organic or inorganic dusts. No aspiration. No heartburn. She has developed some obesity over the years because of her severe asthma and steroid requirement. She is also on Singulair, as has been in the form of Xyzal. On today's evaluation of 05/27/2022, limited improvement since yesterday and the patient continues to have frequent coughing episodes, chest wall pain, bronchos pasm, wheezing and shortness of breath despite being on a combination of DuoNeb about treatments [id number], IV Solu-Medrol, Perforomist and Pulmicort neb treatments twice a day. No fever. No chills. No other new complaints otherwise. 05/21/2022, the cough slightly improved compared to yesterday, no new complaints. Clinically improving. Remains on bronchodilators and systemic. No fever chills or night sweats. She is on oxygen at 2 L a pulse ox of 96%. Objective - Vital Signs Vital signs: Vital Signs Temp 98.1 F 05/28/22 15:00 Pulse 74 05/28/22 15:00 Resp 17 05/28/22 15:00 BP 147/77 05/28/22 15:00 Pulse Ox 96 05/28/22 15:00 FiO2 Intake & Output 05/27/22 05/28/22 05/28/22 18:59 06:59 18:59 Intake Total 118 100 Balance 118 100 Intake: Oral 118 100 Other: # Voids 2 2 2 - Exam GENERAL: The patient is alert and oriented x3, not in any acute distress. Well developed, well nourished. Head exam was generally normal. There was no scleral icterus or corneal arcus. Mucous membranes were moist. HEENT: Pupils are round and equally reacting to light. EOMI. No scleral icterus. No conjunctival pallor. Normocephalic, atraumatic. No pharyngeal erythema. No thyromegaly. CARDIOVASCULAR: S1 and S2 present. No murmurs, rubs, or gallops. PULMONARY: Diminished breath sounds along with diffuse extremity wheezes throughout blunted bilaterally and the patient has prolongation of the exhalation phase of breathing ABDOMEN: Soft, nontender, nondistended, normoactive bowel sounds. No palpable organomegaly. MUSCULOSKELETAL: No joint swelling or deformity. EXTREMITIES: No cyanosis, clubbing, or pedal edema. NEUROLOGICAL: Gross neurological examination did not reveal any focal deficits. SKIN: No rashes. - Labs CBC & Chem 7: 05/27/22 04:55 05/27/22 04:55 Labs: Microbiology - Last 24 Hours (Table) 05/26/22 05:40 Blood Culture - Preliminary Blood No Growth after 48 hours 05/26/22 05:25 Blood Culture - Preliminary Blood No Growth after 48 hours 05/27/22 08:32 Gram Stain - Preliminary Sputum Sputum Culture - Preliminary Assessment and Plan Plan: Acute exacerbation of severe persistent bronchial asthma secondary to RSV tracheobronchitis RSV to bronchitis, no indication for pneumonia, Pro calcitonin is low and bacterial pneumonia is felt to be less likely History of severe persistent ALLERGIC bronchial asthma maintained on examination of Symbicort and Spiriva and currently she is on Tezspire. The patient has required frequent steroid treatment in the past Multiple environmental ALLERGIES currently on immunotherapy History of obesity related to repeated steroid use Mild lactic acidosis probably related to underlying infection/labored breathing Plan Cough is slightly improved Continue same treatment Promethazine for cough as the patient is having some chest wall pain due to extensive cough DuoNeb nebulized treatments [id number] continue erforomist and Pulmicort neb regimen twice a day IV Solu-Medrol Antibiotics coverage is essentially empiric No other changes on the medication will be done We'll stabilize her condition will hopefully treated on outpatient basis with Biologics. She is currently on Tezspire IV fluids to KVO increase mobility
[2022-05-28] MEDS: MELATONIN 3 MG TABLET PO SCH (20:41)
[2022-05-29] MEDS: methylPREDNISolone SOD SUCCI 125 MG/2 ML VIAL IV SCH ×5 (00:30→23:01)
[2022-05-29] MEDS: PANTOPRAZOLE 40 MG TABLET PO SCH (05:43)
[2022-05-29] MEDS: FORMOTEROL FUMARATE 20 MCG/2 ML NEBU INHALATION SCH ×2 (07:12→20:07)
[2022-05-29] MEDS: BUDESONIDE 0.5 MG/2 ML NEBU INHALATION SCH ×2 (07:12→20:07)
[2022-05-29] MEDS: ALBUTEROL NEBULIZED 2.5 MG/3 ML INHALATION SCH ×4 (07:12→20:07)
[2022-05-29] MEDS: guaiFENesin 600 MG TABLET.ER PO SCH ×2 (07:47→21:49)
[2022-05-29] MEDS: MONTELUKAST 10 MG TAB PO SCH (07:47)
[2022-05-29] MEDS: PROMETHAZINE 25 MG TAB PO PRN ×3 (07:53→23:01)
[2022-05-29] MEDS: ALBUTEROL NEBULIZED 2.5 MG/3 ML INHALATION PRN (09:11)
[2022-05-29 10:52] LABS: HCT 34.2 % (37.2-46.3); HGB 11.1 g/dL (12.0-15.0); MCH 28.3 pg (27.0-32.0); MCHC 32.5 g/dL (32.0-37.0); MCV 87.2 fL (80.0-97.0); Mean Platelet Volume 12.4 fL (9.5-12.2); NRBC Per 100 WBC 0 /100 WBCS (0.0-0.0); Platelet Count 223 X 10*3/uL (140-440); RBC 3.92 X 10*6/uL (4.10-5.20); RDW 14.4 % (11.5-14.5); WBC 11.67 X 10*3/uL (4.50-10.00)
[2022-05-29 10:57] LABS: African American GFR (CKD) 116.3 (60.0-200.0); Albumin 3.8 g/dL (3.8-4.9); Anion Gap 9.2 mmol/L (10.00-18.00); BUN/Creat Ratio 26.86 Ratio (12.00-20.00); Blood Urea Nitrogen 18.8 mg/dL (9.0-27.0); Calcium 8.7 mg/dL (8.7-10.3); Carbon Dioxide 22.8 mmol/L (20.0-27.5); Globulin 1.9 g/dL (1.6-3.3); Non-African American GFR(CKD) 100.3 (60.0-200.0); Potassium 4.4 mmol/L (3.5-5.5); Total Bilirubin 0.3 mg/dL (0.30-1.20); Total Protein 5.7 g/dL (6.2-8.2)
--- NOTE | 2022-05-29 11:05 | P.PN ---
Subjective Progress Note Date: 05/29/22 This is a 52-year-old female patient with history of severe persistent bronchial asthma and the patient was diagnosed having at night at a young age. The patient has been on a very complicated course of treatment over the past few years. In summary, she has history of ALLERGIC bronchi and asthma. She states that she's been ALLERGIC to almost everything as far as aeroallergens. She is currently receiving immunotherapy. This is her second round of immunotherapy which is receiving through her thermal cutter hand. She has also seen by pulmonology in the past. She has been treated with various inhalers and currently she will examination of Symbicort and Spiriva. She was given Fasenra and she did not respond to Fasenra this was switched to Tezspire approximately 6 months ago. She has seen some limited improvement. She has a quite frequent steroid treatment. At one point, she was on a maintenance of prednisone ranging between 10 and 20 mg. She has received multiple prednisone burst taper. She is currently off steroids. She came into the hospital because of worsening shortness of breath. She was diagnosed having positive RSV infection. Her asthma is currently exacerbated. No aspirin sensitivity. No nasal polyposis. No skin rashes. No chest pain. No smoking. No exposure to organic or inorganic dusts. No aspiration. No heartburn. She has developed some obesity over the years because of her severe asthma and steroid requirement. She is also on Singulair, as has been in the form of Xyzal. On today's evaluation of 05/27/2022, limited improvement since yesterday and the patient continues to have frequent coughing episodes, chest wall pain, bronchospasm, wheezing and shortness of breath despite being on a combination of DuoNeb about treatments [id number], IV Solu-Medrol, Perforomist and Pulmicort neb treatments twice a day. No fever. No chills. No other new compl aints otherwise. 05/21/2022, the cough slightly improved compared to yesterday, no new complaints. Clinically improving. Remains on bronchodilators and systemic. No fever chills or night sweats. She is on oxygen at 2 L a pulse ox of 96%. The patient is seen today 05/29/2022 in follow-up on the regular medical floor. She is currently sitting up in bed. Awake and alert in no acute distress. She is feeling a bit better today compared to yesterday. Still with significant dry nonproductive cough. She is maintaining good O2 saturations in the 90s on room air. She's been afebrile. Blood cultures revealed no growth. Sputum culture revealed no growth. White count 11.6. Hemoglobin 11.1. Sodium 137. Potassium 4.4. BUN 18. Creatinine 0.7. AST 18. ALT 33. She is continued on Pulmicort and Perforomist inhalations, albuterol, IV Solu-Medrol, Singulair. Antibiotics in the form of ceftriaxone. Objective - Vital Signs Vital signs: Vital Signs Temp 98.2 F 05/29/22 07:00 Pulse 80 05/29/22 09:20 Resp 18 05/29/22 07:00 BP 161/79 05/29/22 07:00 Pulse Ox 97 05/29/22 07:00 FiO2 Intake & Output 05/28/22 05/29/22 05/29/22 18:59 06:59 18:59 Intake Total 100 Balance 100 Intake: Oral 100 Other: # Voids 2 2 - Exam GENERAL EXAM: Alert, pleasant 52-year-old female, on room air, fairly comfortable in no apparent distress. HEAD: Normocephalic. EYES: Normal reaction of pupils, equal size. NOSE: Clear with pink turbinates. THROAT: No erythema or exudates. NECK: No masses, no JVD. CHEST: No chest wall deformity. LUNGS: Equal air entry with no crackles, wheeze, rhonchi or dullness. CVS: S1 and S2 normal with no audible murmur, regular rhythm. ABDOMEN: No hepatosplenomegaly, normal bowel sounds, no guarding or rigidity. SPINE: No scoliosis or deformity SKIN: No rashes CENTRAL NERVOUS SYSTEM: No focal deficits, tone is normal in all 4 extremities. EXTREMITIES: There is no peripheral edema. No clubbing, no cyanosis. Peripheral pulses are intact. - Labs CBC & Chem 7: 05/29/22 08:18 05/29/22 08:18 Labs: Abnormal Lab Results - Last 24 Hours (Table) 05/29/22 05/29/22 Range/Units 08:18 08:18 WBC 11.67 H (4.50-10.00) X 10*3/uL RBC 3.92 L (4.10-5.20) X 10*6/uL Hgb 11.1 L (12.0-15.0) g/dL Hct 34.2 L (37.2-46.3) % MPV 12.4 H (9.5-12.2) fL Anion Gap 9.20 L (10.00-18.00) mmol/L BUN/Creatinine Ratio 26.86 H (12.00-20.00) Ratio Glucose 163 H (70-110) mg/dL Alkaline Phosphatase 39 L (41-126) U/L Total Protein 5.7 L (6.2-8.2) g/dL Microbiology - Last 24 Hours (Table) 05/27/22 08:32 Gram Stain - Final Sputum Sputum Culture - Final 05/26/22 05:40 Blood Culture - Preliminary Blood No Growth after 72 hours 05/26/22 05:25 Blood Culture - Preliminary Blood No Growth after 72 hours Assessment and Plan Assessment: Acute exacerbation of severe persistent bronchial asthma secondary to RSV tracheobronchitis RSV to bronchitis, no indication for pneumonia, Pro calcitonin is low and ba cterial pneumonia is felt to be less likely History of severe persistent ALLERGIC bronchial asthma maintained on examination of Symbicort and Spiriva and currently she is on Tezspire. The patient has required frequent steroid treatment in the past Multiple environmental ALLERGIES currently on immunotherapy History of obesity related to repeated steroid use Mild lactic acidosis probably related to underlying infection/labored breathing Plan: The patient was seen and evaluated Improved but not quite back to her baseline Continue steroids, bronchodilators Continue empiric antibiotic Probable discharge in the a.m. We will continue to follow I have personally seen and examined the patient, performed the documentation and the assessment and plan as written. Number of minutes spent on the visit: 10.
[2022-05-29] MEDS ORDERED: BENZOCAINE/MENTHOL LOZENG 1 EACH LOZENGE MUCOUS MEM PRN (14:02)
--- NOTE | 2022-05-29 14:04 | P.PN ---
Subjective Progress Note Date: 05/29/22 patient is a 52-year-old lady with past medical history significant for asthma who presented to the ER because of worsening shortness of breath. Patient stated that she has not been feeling well since Sunday. One of her kids were sick with respiratory viral infection. Patient was complaining of chest c ongestion and productive cough. Patient has been using her inhalers at home but continued to felt bad. Because of worsening shortness of breath patient came to the ER. Patient was worked up in the ER, initial white count was elevated 14.7, hemoglobin was 13.3, dimer was normal, sodium was 137, potassium 4.3, chloride 109, bicarbonate 17, initial lactate was 3, repeat was 4.9. Patient had respir atory viral panel done, RSV was positive, influenza A and B and COVID-19 was negative. Patient was started on IV antibiotics and was admitted to hospitalist service 05/27. Patient seen and examined. States cough is still present, but is dry. Not productive. Shortness of breath is improving. Slightly tachycardic. 05/28. Still complaining of congestion. Shortness of breath is improved. Cou gh has also improved. Vital signs stable. 05/29/2022 Patient evaluated on medical floor. Continues with significant shortness of breath on room air. Afebrile. Lungs are wheezy. Bronchospastic with deep breathing. Pulmonary recommending to monitor overnight and possible DC tomorrow. Continues on IV solumedrol and empiric antibiotic coverage. Patient encouraged to increase activity level. White count improved to 11.67. Hgb 11.1. Review of Systems Constitutional: Denied any fatigue denied any fever. Cardio vascular: denied any chest pain, palpitations Gastrointestinal: denied any nausea, vomiting, diarrhea Pulmonary: Reports shortness of breath, cough non productive. Neurologic denied any new focal deficits All inpatient medications were reviewed and appropriate changes in these medicat ions as dictated in the interval history and assessment and plan. PHYSICAL EXAMINATION: GENERAL: The patient is alert and oriented x3, not in any acute distress. Well developed, well nourished. HEENT: Pupils are round and equally reacting to light. EOMI. No scleral icterus. No conjunctival pallor. Normocephalic, atraumatic. No pharyngeal erythema. No thyromegaly. CARDIOVASCULAR: S1 and S2 present. No murmurs, rubs, or gallops. PULMONARY: Coarse rhonchi through some scattered wheezing ABDOMEN: Soft, nontender, nondistended, normoactive bowel sounds. No palpable organomegaly. MUSCULOSKELETAL: No joint swelling or deformity. EXTREMITIES: No cyanosis, clubbing, or pedal edema. NEUROLOGICAL: Gross neurological examination did not reveal any focal deficits. SKIN: No rashes. 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 Increase activity level Continue to monitor overnight, possible D/C in the next 24 hours Follow up with pulmonary on DC. The impression and plan of care has been dictated by Asha Lilly, Nurse Practitioner as directed. Dr. Alexa MD I have performed a history and physical examination and medical decision making of this patient, discussed the same with the dictator, and agree with the dictators assessment and plan as written, documented as a scribe. Based on total visit time, I have performed more than 50% of this visit. Objective - Vital Signs Vital signs: Vital Signs Temp 98.2 F 05/29/22 07:00 Pulse 74 05/29/22 11:40 Resp 18 05/29/22 07:00 BP 161/79 05/29/22 07:00 Pulse Ox 97 05/29/22 07:00 FiO2 Intake & Output 05/28/22 05/29/22 05/29/22 18:59 06:59 18:59 Intake Total 100 Balance 100 Intake: Oral 100 Other: # Voids 2 2 - Labs CBC & Chem 7: 05/29/22 08:18 05/29/22 08:18 Labs: Abnormal Lab Results - Last 24 Hours (Table) 05/29/22 05/29/22 Range/Units 08:18 08:18 WBC 11.67 H (4.50-10.00) X 10*3/uL RBC 3.92 L (4.10-5.20) X 10*6/uL Hgb 11.1 L (12.0-15.0) g/dL Hct 34.2 L (37.2-46.3) % MPV 12.4 H (9.5-12.2) fL Anion Gap 9.20 L (10.00-18.00) mmol/L BUN/Creatinine Ratio 26.86 H (12.00-20.00) Ratio Glucose 163 H (70-110) mg/dL Alkaline Phosphatase 39 L (41-126) U/L Total Protein 5.7 L (6.2-8.2) g/dL Microbiology - Last 24 Hours (Table) 05/27/22 08:32 Gram Stain - Final Sputum Sputum Culture - Final 05/26/22 05:40 Blood Culture - Preliminary Blood No Growth after 72 hours 05/26/22 05:25 Blood Culture - Preliminary Blood No Growth after 72 hours Assessment and Plan Time with Patient: Less than 30
[2022-05-29] MEDS: lisinopriL 5 MG TAB PO SCH (14:27)
[2022-05-29] MEDS: MELATONIN 3 MG TABLET PO SCH (21:48)
[2022-05-29] MEDS ORDERED: lisinopriL 5 MG TAB PO STA (23:23)
[2022-05-30] MEDS: methylPREDNISolone SOD SUCCI 125 MG/2 ML VIAL IV SCH ×3 (05:49→18:56)
[2022-05-30] MEDS: FORMOTEROL FUMARATE 20 MCG/2 ML NEBU INHALATION SCH ×2 (08:12→21:19)
[2022-05-30] MEDS: ALBUTEROL NEBULIZED 2.5 MG/3 ML INHALATION SCH ×4 (08:12→21:19)
[2022-05-30] MEDS: BUDESONIDE 0.5 MG/2 ML NEBU INHALATION SCH ×2 (08:12→21:19)
[2022-05-30] MEDS: PANTOPRAZOLE 40 MG TABLET PO SCH (08:53)
[2022-05-30] MEDS: guaiFENesin 600 MG TABLET.ER PO SCH ×2 (08:53→21:55)
[2022-05-30] MEDS: MONTELUKAST 10 MG TAB PO SCH (08:53)
[2022-05-30] MEDS: lisinopriL 5 MG TAB PO SCH (09:06)
--- NOTE | 2022-05-30 10:34 | P.PN ---
Subjective Progress Note Date: 05/30/22 This is a 52-year-old female patient with history of severe persistent bronchial asthma and the patient was diagnosed having at night at a young age. The patient has been on a very complicated course of treatment over the past few years. In summary, she has history of ALLERGIC bronchi and asthma. She states that she's been ALLERGIC to almost everything as far as aeroallergens. She is currently receiving immunotherapy. 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 She has also seen by pulmonology in the past. She has been treated with various inhalers and currently she will examination of Symbicort and Spiriva. She was given Fasenra and she did not respond to Fasenra this was switched to Tezspire approximately 6 months ago. She has seen some limited improvement. She has a quite frequent steroid treatment. At one point, she was on a maintenance of prednisone ranging between 10 and 20 mg. She has received multiple prednisone burst taper. She is currently off steroids. She came into the hospital because of worsening shortness of breath. She was diagnosed having positive RSV infection. Her asthma is currently exacerbated. No aspirin sensitivity. No nasal polyposis. No skin rashes. No chest pain. No smoking. No exposure to organic or inorganic dusts. No aspiration. No heartburn. She has developed some obesity over the years because of her severe asthma and steroid requirement. She is also on Singulair, as has been in the form of Xyzal. On today's evaluation of 05/27/2022, limited improvement since yesterday and the patient continues to have frequent coughing episodes, chest wall pain, bronchospasm, wheezing and shortness of breath despite being on a combination of DuoNeb about treatments [id number], IV Solu-Medrol, Perforomist and Pulmicort neb treatments twice a day. No fever. No chills. No other new compl aints otherwise. 05/21/2022, the cough slightly improved compared to yesterday, no new complaints. Clinically improving. Remains on bronchodilators and systemic. No fever chills or night sweats. She is on oxygen at 2 L a pulse ox of 96%. The patient is seen today 05/29/2022 in follow-up on the regular medical floor. She is currently sitting up in bed. Awake and alert in no acute distress. She is feeling a bit better today compared to yesterday. Still with significant dry nonproductive cough. She is maintaining good O2 saturations in the 90s on room air. She's been afebrile. Blood cultures revealed no growth. Sputum culture revealed no growth. White count 11.6. Hemoglobin 11.1. Sodium 137. Potassium 4.4. BUN 18. Creatinine 0.7. AST 18. ALT 33. She is continued on Pulmicort and Perforomist inhalations, albuterol, IV Solu-Medrol, Singulair. Antibiotics in the form of ceftriaxone. The patient is seen today 05/30/2022 in follow-up on the regular medical floor. She is currently sitting up in a chair at the bedside. Awake and alert in no acute distress. Maintaining good O2 saturations in the 90s on room air. She still has a dry nonproductive cough. She still has some chest tightness and wheezing. Blood cultures reveal no growth. Sputum cultures revealed no growth. No new labs today. She is maintained on IV Solu-Medrol, Singulair, Pulmicort and Perforomist inhalations, Mucinex. Empiric antibiotics in the form of ceftriaxone. Objective - Vital Signs Vital signs: Vital Signs Temp 98.4 F 05/30/22 07:00 Pulse 74 05/30/22 08:41 Resp 16 05/30/22 07:00 BP 164/84 05/30/22 07:00 Pulse Ox 95 05/30/22 08:16 FiO2 Intake & Output 05/29/22 05/30/22 05/30/22 18:59 06:59 18:59 Intake Total 500 Balance 500 Intake: Oral 500 Other: Voiding Method Toilet # Voids 2 2 - Exam GENERAL EXAM: Alert, pleasant 52-year-old female, on room air, up in a chair at the bedside, fairly comfortable in no apparent distress. HEAD: Normocephalic. EYES: Normal reaction of pupils, equal size. NOSE: Clear with pink turbinates. THROAT: No erythema or exudates. NECK: No masses, no JVD. CHEST: No chest wall deformity. LUNGS: Equal air entry with bilateral end expiratory wheeze. CVS: S1 and S2 normal with no audible murmur, regular rhythm. ABDOMEN: No hepatosplenomegaly, normal bowel sounds, no guarding or rigidity. SPINE: No scoliosis or deformity SKIN: No rashes CENTRAL NERVOUS SYSTEM: No focal deficits, tone is normal in all 4 extremities. EXTREMITIES: There is no peripheral edema. No clubbing, no cyanosis. Peripheral pulses are intact. - Labs CBC & Chem 7: 05/29/22 08:18 05/29/22 08:18 Labs: Abnormal Lab Results - Last 24 Hours (Table) 05/29/22 05/29/22 Range/Units 08:18 08:18 WBC 11.67 H (4.50-10.00) X 10*3/uL RBC 3.92 L (4.10-5.20) X 10*6/uL Hgb 11.1 L (12.0-15.0) g/dL Hct 34.2 L (37.2-46.3) % MPV 12.4 H (9.5-12.2) fL Anion Gap 9.20 L (10.00-18.00) mmol/L BUN/Creatinine Ratio 26.86 H (12.00-20.00) Ratio Glucose 163 H (70-110) mg/dL Alkaline Phosphatase 39 L (41-126) U/L Total Protein 5.7 L (6.2-8.2) g/dL Microbiology - Last 24 Hours (Table) 05/26/22 05:25 Blood Culture - Preliminary Blood No Growth after 96 hours 05/26/22 05:40 Blood Culture - Preliminary Blood No Growth after 96 hours 05/27/22 08:32 Gram Stain - Final Sputum Sputum Culture - Final Assessment and Plan Assessment: Acute exacerbation of severe persistent bronchial asthma secondary to RSV tracheobronchitis RSV to bronchitis, no indication for pneumonia, Pro calcitonin is low and bacterial pneumonia is felt to be less likely History of severe persistent ALLERGIC bronchial asthma maintained on examination of Symbicort and Spiriva and currently she is on Tezspire. The patient has required frequent steroid treatment in the past Multiple environmental ALLERGIES currently on immunotherapy History of obesity related to repeated steroid use Mild lactic acidosis probably related to underlying infection/labored breathing Plan: The patient was seen and evaluated Improved but not quite back to her baseline Still somewhat bronchospastic and wheezy Continue steroids, bronchodilators Probable discharge in the a.m. We will continue to follow I have personally seen and examined the patient, performed the documentation and the assessment and plan as written. Number of minutes spent on the visit: 10.
[2022-05-30] MEDS: amLODIPine 10 MG TAB PO SCH (13:54)
--- NOTE | 2022-05-30 21:27 | P.PN ---
Subjective Progress Note Date: 05/30/22 patient is a 52-year-old lady with past medical history significant for asthma who presented to the ER because of worsening shortness of breath. Patient stated that she has not been feeling well since Sunday. One of her kids were sick with respiratory viral infection. Patient was complaining of chest c ongestion and productive cough. Patient has been using her inhalers at home but continued to felt bad. Because of worsening shortness of breath patient came to the ER. Patient was worked up in the ER, initial white count was elevated 14.7, hemoglobin was 13.3, dimer was normal, sodium was 137, potassium 4.3, chloride 109, bicarbonate 17, initial lactate was 3, repeat was 4.9. Patient had respir atory viral panel done, RSV was positive, influenza A and B and COVID-19 was negative. Patient was started on IV antibiotics and was admitted to hospitalist service 05/27. Patient seen and examined. States cough is still present, but is dry. Not productive. Shortness of breath is improving. Slightly tachycardic. 05/28. Still complaining of congestion. Shortness of breath is improved. Cou gh has also improved. Vital signs stable. 05/29/2022 Patient evaluated on medical floor. Continues with significant shortness of breath on room air. Afebrile. Lungs are wheezy. Bronchospastic with deep breathing. Pulmonary recommending to monitor overnight and possible DC tomorrow. Continues on IV solumedrol and empiric antibiotic coverage. Patient encouraged to increase activity level. White count improved to 11.67. Hgb 11.1. 05/30/2022 Patient sitting up in chair today, no acute events overnight. Continues with shortness of breath, intermittent cough. Continues on IV steroids. Blood pres sure slightly improved to 150s systolic. Pulmonary following. Review of Systems Constitutional: Denied any fatigue denied any fever. Cardio vascular: denied any chest pain, palpitations Gastrointestinal: denied any nausea, vomiting, diarrhea Pulmonary: Reports shortness of breath, cough non productive. Neurologic denied any new focal deficits All inpatient medications were reviewed and appropriate changes in these medications as dictated in the interval history and assessment and plan. PHYSICAL EXAMINATION: GENERAL: The patient is alert and oriented x3, not in any acute distress. Well developed, well nourished. HEENT: Pupils are round and equally reacting to light. EOMI. No scleral icterus. No conjunctival pallor. Normocephalic, atraumatic. No pharyngeal erythema. No thyromegaly. CARDIOVASCULAR: S1 and S2 present. No murmurs, rubs, or gallops. PULMONARY: Coarse rhonchi through some scattered wheezing ABDOMEN: Soft, nontender, nondistended, normoactive bowel sounds. No palpable organomegaly. MUSCULOSKELETAL: No joint swelling or deformity. EXTREMITIES: No cyanosis, clubbing, or pedal edema. NEUROLOGICAL: Gross neurological examination did not reveal any focal deficits. SKIN: No rashes. 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 Dr. Alexa MD I have performed a history and physical examination and medical decision making of this patient, discussed the same with the dictator, and agree with the dictators assessment and plan as written, documented as a scribe. Based on total visit time, I have performed more than 50% of this visit. Objective - Vital Signs Vital signs: Vital Signs Temp 98.5 F 05/30/22 15:00 Pulse 84 05/30/22 21:19 Resp 16 05/30/22 15:00 BP 151/68 05/30/22 15:00 Pulse Ox 96 05/30/22 15:44 FiO2 Intake & Output 05/30/22 05/30/22 05/31/22 06:59 18:59 06:59 Intake Total 500 222 Balance 500 222 Intake: Oral 500 222 Other: Voiding Method Toilet # Voids 2 1 - Labs CBC & Chem 7: 05/29/22 08:18 05/29/22 08:18 Labs: Microbiology - Last 24 Hours (Table) 05/26/22 05:25 Blood Culture - Preliminary Blood No Growth after 96 hours 05/26/22 05:40 Blood Culture - Preliminary Blood No Growth after 96 hours Assessment and Plan Time with Patient: Less than 30
[2022-05-30] MEDS: MELATONIN 3 MG TABLET PO SCH (22:10)
[2022-05-30] MEDS: PROMETHAZINE 25 MG TAB PO PRN (22:10)
[2022-05-31] MEDS: methylPREDNISolone SOD SUCCI 125 MG/2 ML VIAL IV SCH ×2 (01:21→06:02)
[2022-05-31 02:55] VITALS: RESP 18
[2022-05-31] MEDS: PANTOPRAZOLE 40 MG TABLET PO SCH (06:02)
[2022-05-31] MEDS: FORMOTEROL FUMARATE 20 MCG/2 ML NEBU INHALATION SCH (07:21)
[2022-05-31] MEDS: ALBUTEROL NEBULIZED 2.5 MG/3 ML INHALATION SCH ×2 (07:21→10:52)
[2022-05-31] MEDS: BUDESONIDE 0.5 MG/2 ML NEBU INHALATION SCH (07:21)
[2022-05-31 08:21] VITALS: BP 135/85; TEMP 98
[2022-05-31] MEDS: amLODIPine 10 MG TAB PO SCH (08:29)
[2022-05-31] MEDS: guaiFENesin 600 MG TABLET.ER PO SCH (08:29)
[2022-05-31] MEDS: MONTELUKAST 10 MG TAB PO SCH (08:29)
[2022-05-31] MEDS ORDERED: predniSONE 20 MG TAB PO SCH (09:00)
[2022-05-31 10:55] VITALS: PULSE 72
--- NOTE | 2022-05-31 11:29 | P.PN ---
Subjective Progress Note Date: 05/31/22 This is a 52-year-old female patient with history of severe persistent bronchial asthma and the patient was diagnosed having at night at a young age. The patient has been on a very complicated course of treatment over the past few years. In summary, she has history of ALLERGIC bronchi and asthma. She states that she's been ALLERGIC to almost everything as far as aeroallergens. She is currently receiving immunotherapy. 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 She has also seen by pulmonology in the past. She has been treated with various inhalers and currently she will examination of Symbicort and Spiriva. She was given Fasenra and she did not respond to Fasenra this was switched to Tezspire approximately 6 months ago. She has seen some limited improvement. She has a quite frequent steroid treatment. At one point, she was on a maintenance of prednisone ranging between 10 and 20 mg. She has received multiple prednisone burst taper. She is currently off steroids. She came into the hospital because of worsening shortness of breath. She was diagnosed having positive RSV infection. Her asthma is currently exacerbated. No aspirin sensitivity. No nasal polyposis. No skin rashes. No chest pain. No smoking. No exposure to organic or inorganic dusts. No aspiration. No heartburn. She has developed some obesity over the years because of her severe asthma and steroid requirement. She is also on Singulair, as has been in the form of Xyzal. On today's evaluation of 05/27/2022, limited improvement since yesterday and the patient continues to have frequent coughing episodes, chest wall pain, bronchospasm, wheezing and shortness of breath despite being on a combination of DuoNeb about treatments [id number], IV Solu-Medrol, Perforomist and Pulmicort neb treatments twice a day. No fever. No chills. No other new compl aints otherwise. 05/21/2022, the cough slightly improved compared to yesterday, no new complaints. Clinically improving. Remains on bronchodilators and systemic. No fever chills or night sweats. She is on oxygen at 2 L a pulse ox of 96%. The patient is seen today 05/29/2022 in follow-up on the regular medical floor. She is currently sitting up in bed. Awake and alert in no acute distress. She is feeling a bit better today compared to yesterday. Still with significant dry nonproductive cough. She is maintaining good O2 saturations in the 90s on room air. She's been afebrile. Blood cultures revealed no growth. Sputum culture revealed no growth. White count 11.6. Hemoglobin 11.1. Sodium 137. Potassium 4.4. BUN 18. Creatinine 0.7. AST 18. ALT 33. She is continued on Pulmicort and Perforomist inhalations, albuterol, IV Solu-Medrol, Singulair. Antibiotics in the form of ceftriaxone. The patient is seen today 05/30/2022 in follow-up on the regular medical floor. She is currently sitting up in a chair at the bedside. Awake and alert in no acute distress. Maintaining good O2 saturations in the 90s on room air. She still has a dry nonproductive cough. She still has some chest tightness and wheezing. Blood cultures reveal no growth. Sputum cultures revealed no growth. No new labs today. She is maintained on IV Solu-Medrol, Singulair, Pulmicort and Perforomist inhalations, Mucinex. Empiric antibiotics in the form of ceftriaxone. The patient is seen today 05/31/2022 in follow-up on the regular medical floor. She is awake and alert in no acute distress. Sitting up in a chair at the bedside. Maintaining good O2 saturations in the 90s on room air. Much less cough and congestion. Feeling nearly back to her baseline. She is maintained on IV Solu-Medrol, Singulair, Pulmicort and Perforomist inhalations, Mucinex. No new labs today. Objective - Vital Signs Vital signs: Vital Signs Temp 98 F 05/31/22 07:00 Pulse 72 05/31/22 11:05 Resp 18 05/31/22 08:00 BP 135/85 05/31/22 07:00 Pulse Ox 96 05/31/22 07:00 FiO2 Intake & Output 05/30/22 05/31/22 05/31/22 18:59 06:59 18:59 Intake Total 222 120 Balance 222 120 Intake: Oral 222 120 Other: Voiding Method Toilet Toilet # Voids 1 1 0 - Exam GENERAL EXAM: Alert, 52-year-old female, on room air, up in a chair at the bedside, comfortable in no apparent distress. HEAD: Normocephalic. EYES: Normal reaction of pupils, equal size. NOSE: Clear with pink turbinates. THROAT: No erythema or exudates. NECK: No masses, no JVD. CHEST: No chest wall deformity. LUNGS: Equal air entry with faint bilateral end expiratory wheeze. CVS: S1 and S2 normal with no audible murmur, regular rhythm. ABDOMEN: No hepatosplenomegaly, normal bowel sounds, no guarding or rigidity. SPINE: No scoliosis or deformity SKIN: No rashes CENTRAL NERVOUS SYSTEM: No focal deficits, tone is normal in all 4 extremities. EXTREMITIES: There is no peripheral edema. No clubbing, no cyanosis. Peripheral pulses are intact. - Labs CBC & Chem 7: 05/29/22 08:18 05/29/22 08:18 Labs: Microbiology - Last 24 Hours (Table) 05/26/22 05:40 Blood Culture - Preliminary Blood No Growth after 120 hours 05/26/22 05:25 Blood Culture - Preliminary Blood No Growth after 120 hours Assessment and Plan Assessment: Acute exacerbation of severe persistent bronchial asthma secondary to RSV tracheobronchitis, improved RSV tracheobronchitis, no indication for pneumonia, Pro calcitonin is low and bacterial pneumonia is felt to be less likely History of severe persistent ALLERGIC bronchial asthma maintained on examination of Symbicort and Spiriva and currently she is on Tezspire. The patient has required frequent steroid treatment in the past Multiple environmental ALLERGIES currently on immunotherapy History of obesity related to repeated steroid use Mild lactic acidosis probably related to underlying infection/labored breathing Plan: The patient was seen and evaluated Medications reviewed Cleared for discharge from the pulmonary standpoint Solu-Medrol transitioned to oral prednisone Complete prednisone taper starting at 40 mg for 4 days Continue her home pulmonary medications Follow-up in the office in 1 week I have personally seen and examined the patient, performed the documentation and the assessment and plan as written. Number of minutes spent on the visit: 10.
--- NOTE | 2022-05-31 16:10 | P.DS ---
Providers Date of admission: 05/29/22 08:21 Attending physician: Slade Gonzalez Consults: 05/26/22 05:20 Consult Physician Routine Consulting Provider: Robert Ariza Consult Reason/Comments: bronchospasm Do you want consulting provider notified?: Yes Primary care physician: Daya Solis Hospital Course: Final Diagnosis RSV tracheobronchitis Leukocytosis secondary to above, improving Acute asthma exacerbation secondary to above Lactic acidosis most likely from labored breathing Metabolic acidosis secondary to lactic acidosis, resolved Steroid induced hyperglycemia History severe persistent allergic bronchial asthma Obesity secondary to chronic steroid use Hypertension, improving Discharge Disposition Patient is stable for discharge home. Continue oral steroid taper and home inhalers. Recommend to follow up with pulmonary in the office on discharge and an appointment has been made for 06/09/22. Patient has been started on amlodipine for elevated blood pressure which is improving, instructed to monitor blood pressure and follow up with primary care in 1 to 2 days. Hospital Course This is a pleasant 52 year old female with medical history of persistent allergic bronchial asthma, GERD, anxiety. Never smoker. Patient presents to the hospital with shortness of breath and cough and was found to be positive for RSV. Patient follows with an photographic platemaker outpatient who manages her asthma. She is maintained on inhalers in the form of Spiriva, albuterol, symbicort. Patient is also maintained on Tezspire. Chest xray on admission showing mild subsegmental atelectasis left lower lobe. Follow up xray showing no acute cardiopulmonary disease. Patient maintained oxygen saturation on room air, had bronchospastic cough which was treated with oral phenergan. Patient received IV solumedrol and will discharge on oral prednisone taper. Pulmonary services evaluated the patient this admission and will follow up with the patient on discharge. Blood pressure increased to 160s systolic this admission and patient was started on lisinopril with minimal improvement. She responded well to amlodipine and blood pressure improved to 130s systolic. White count improved to 11.67, peaked at 17 .6 this admission. She has remained afebrile. 05/31/2022 Patient evaluated today sitting up in chair. Overall she reports improvement in shortness of breath and cough. She has improved aeration, continues with coarse lung sounds mostly in the left posterior lung field. Scattered wheezing present however significantly improved. Denies chest pain. Denies palpitations. Denies fever, denies nausea, vomiting, diarrhea. S1 S2 auscultated regular rate and rhythm, abdomen is soft and nontender. Alert x 3, focal neurological exam is negative. Most recent labs showing white count 11.67, hgb 11.1, sodium 137, potassium 4.4, BUN 18.8, creatinine 0.7, glucose 163, alk phos 39. Temperature 98, heart rate 76, blood pressure 135/85, 96% room air. Cleared by pulmonary for discharge today. Total time taken in discharge planning greater than 35 minutes. Please see medication reconciliation for a list of current medication. Thank you for allowing us to participate in the care of this patient. The impression and plan of care has been dictated by Asha Lilly, Nurse Practitioner as directed. Dr. Alexa MD I have performed a history and physical examination and medical decision making of this patient, discussed the same with the dictator, and agree with the dictators assessment and plan as written, documented as a scribe. Based on total visit time, I have performed more than 50% of this visit. Patient Condition at Discharge: Stable Plan - Discharge Summary New Discharge Prescriptions: New Benzocaine/Menthol Lozeng [Cepacol lozenge] 1 each MUCOUS MEM Q4HR PRN lozenge PRN Reason: Cough guaiFENesin [Mucinex] 600 mg PO Q12HR tab Promethazine [Phenergan] 25 mg PO Q8HR PRN 3 Days #9 tab PRN Reason: Cough amLODIPine [Norvasc] 5 mg PO DAILY #30 tab predniSONE 0 mg PO DIRECTED 16 Days #38 tab Continue Montelukast [Singulair] 10 mg PO DAILY Albuterol Nebulized [Ventolin Nebulized] 2.5 mg INHALATION RT-QID PRN PRN Reason: Shortness Of Breath Albuterol Inhaler [Ventolin Hfa Inhaler] 1 - 2 puff INHALATION RT-QID PRN PRN Reason: Shortness Of Breath Levocetirizine Dihydrochloride [Xyzal] 5 mg PO DAILY Diphenoxylate HCl/Atropine [Lomotil 2.5-0.025 mg Tablet] 1 tab PO QID PRN PRN Reason: Diarrhea Budesonide-Formot 160-4.5 Mcg [Symbicort 160-4.5 Mcg Inhaler] 2 puff INHALATION RT-BID Omeprazole [PriLOSEC] 40 mg PO DAILY #14 cap Spiriva Respimat 1.25 Mcg Inhaler 2 puff INHALATION RT-DAILY Discontinued predniSONE [Deltasone] 20 mg PO BID Discharge Medication List Albuterol Nebulized [Ventolin Nebulized] 2.5 mg INHALATION RT-QID PRN 11/19/19 [History] Montelukast [Singulair] 10 mg PO DAILY 11/19/19 [History] Albuterol Inhaler [Ventolin Hfa Inhaler] 1 - 2 puff INHALATION RT-QID PRN 12/30/19 [History] Levocetirizine Dihydrochloride [Xyzal] 5 mg PO DAILY 03/22/20 [History] Budesonide-Formot 160-4.5 Mcg [Symbicort 160-4.5 Mcg Inhaler] 2 puff INHALATION RT-BID 11/29/21 [History] Omeprazole [PriLOSEC] 40 mg PO DAILY #14 cap 12/01/21 [Rx] Diphenoxylate HCl/Atropine [Lomotil 2.5-0.025 mg Tablet] 1 tab PO QID PRN 05/26/22 [History] Spiriva Respimat 1.25 Mcg Inhaler 2 puff INHALATION RT-DAILY 05/26/22 [History] Benzocaine/Menthol Lozeng [Cepacol lozenge] 1 each MUCOUS MEM Q4HR PRN lozenge 05/31/22 [Rx] Promethazine [Phenergan] 25 mg PO Q8HR PRN 3 Days #9 tab 05/31/22 [Rx] amLODIPine [Norvasc] 5 mg PO DAILY #30 tab 05/31/22 [Rx] guaiFENesin [Mucinex] 600 mg PO Q12HR tab 05/31/22 [Rx] predniSONE 0 mg PO DIRECTED 16 Days #38 tab 05/31/22 [Rx] Follow up Appointment(s)/Referral(s): Dayana Drake MD [STAFF PHYSICIAN] - 06/09/22 2:00 pm Daya Solis DO [Primary Care Provider] - 1-2 Days Patient Instructions/Handouts: Respiratory Syncytial Virus (DC) Activity/Diet/Wound Care/Special Instructions: Continue oral steroid taper Continue amlodipine 5 mg po daily and monitor blood pressure at home If blood pressure is consistently below 120s systolic than discontinue and monitor blood pressure. Follow up with PCP in 1 to 2 days. Discharge Disposition: HOME SELF-CARE
== END 2022-05-31 13:47 | disposition home or self-care (01) | DRG 202 ==
LOC: EC 02:32 → 6NMEDSUR 05:20 → OBSVTOIN 05-29 08:21
PROVIDERS: ADMIT Hospitalist; ATTEND Hospitalist
DX: J20.5 Acute bronchitis due to respiratory syncytial virus (principal); E87.20 Acidosis, unspecified; J21.0 Acute bronchiolitis due to respiratory syncytial virus; J45.52 Severe persistent asthma with status asthmaticus; J44.1 Chronic obstructive pulmonary disease with (acute) exacerbation; J44.0 Chronic obstructive pulmonary disease with (acute) lower respiratory infection; J98.11 Atelectasis; Z28.310 Unvaccinated for COVID-19; I10 Essential (primary) hypertension; K21.9 Gastro-esophageal reflux disease without esophagitis; R73.9 Hyperglycemia, unspecified; T38.0X5A Adverse effect of glucocorticoids and synthetic analogues, initial encounter; J30.2 Other seasonal allergic rhinitis; F41.9 Anxiety disorder, unspecified; E66.9 Obesity, unspecified; Z68.33 Body mass index [BMI] 33.0-33.9, adult; R13.10 Dysphagia, unspecified; Z79.51 Long term (current) use of inhaled steroids; Z79.52 Long term (current) use of systemic steroids; Z79.899 Other long term (current) drug therapy; Z86.16 Personal history of COVID-19; Z87.01 Personal history of pneumonia (recurrent); Z88.8 Allergy status to other drugs, medicaments and biological substances; Z91.041 Radiographic dye allergy status; Z91.018 Allergy to other foods; Z91.013 Allergy to seafood
CPT/HCPCS: 36415; 71045; 80053; 83605; 83735; 83880; 84145; 84484; 85025; 85027; 85379; 85610; 85730; 87040; 87070; 87205; 93005; 94640; 94760; 96361; 96365; 96366; 96367; 96368; 96375; 99285

== ENCOUNTER → 2022-10-13 | Outpatient (CLI) | payer OTHER ==
--- NOTE | 2022-10-13 09:13 | MM ---
Reason for Exam: Screening (asymptomatic). Last mammogram was performed 1 year(s) and 3 month(s) ago. Patient History: Menarche at age 13. First Full-Term at age 30. Hysterectomy at age 35. Postmenopausal. Patient has history of breast feeding. Maternal grandmother had breast cancer, age 80. Risk Values: Adele 5 year model risk: 1.1%. NCI Lifetime model risk: 9.7%. Prior Study Comparison: 02/25/2019 Bilateral Screening Mammogram, [facility]. 04/20/2020 Bilateral Screening Mammogram, [facility]. 07/25/2021 Bilateral Screening Mammogram, [facility]. Tissue Density: The breast tissue is heterogeneously dense. This may lower the sensitivity of mammography. Findings: Analyzed By CAD. There is no suspicious group of microcalcifications or new suspicious mass in either breast. Overall Assessment: Negative, BI-RAD 1 Management: Screening Mammogram of both breasts in 1 year. A clinical breast exam by your physician is recommended on an annual basis and results should be correlated with mammographic findings. Electronically signed and approved by: Ronny Preciado D.O.
== END | disposition home or self-care (01) ==
LOC: RADMAMWWP 07:58
PROVIDERS: ATTEND Family Medicine
DX: Z12.31 Encounter for screening mammogram for malignant neoplasm of breast (principal); Z78.0 Asymptomatic menopausal state; Z80.3 Family history of malignant neoplasm of breast
CPT/HCPCS: 77063; 77067

== ENCOUNTER → 2024-06-05 | Outpatient (CLI) | payer MEDICARE, BC ==
--- NOTE | 2024-06-06 18:07 | MM ---
Reason for Exam: Screening (asymptomatic). Last mammogram was performed 1 year(s) and 8 month(s) ago. Patient History: Menarche at age 13. First Full-Term at age 30. Hysterectomy at age 35. Postmenopausal. Patient has history of breast feeding. Maternal grandmother had breast cancer, age 80. Risk Values: Adele 5 year model risk: 1.2%. NCI Lifetime model risk: 9.4%. Prior Study Comparison: 04/20/2020 Bilateral Screening Mammogram, [facility]. 07/25/2021 Bilateral Screening Mammogram, [facility]. 10/13/2022 Bilateral MG 3D screening mammo w/cad, [facility]. Tissue Density: The breasts are heterogeneously dense, which may obscure small masses. Findings: Analyzed By CAD. There is no suspicious group of microcalcifications or new suspicious mass in either breast. Overall Assessment: Negative, BI-RAD 1 Management: Screening Mammogram of both breasts in 1 year. . Patient should continue monthly self-breast exams. A clinical breast exam by your physician is recommended on an annual basis. This exam should not preclude additional follow-up of suspicious palpable abnormalities. Note on Adele scores and lifetime risk: 1. A Adele score greater than 3% is considered moderate risk. If this is the case, consider specialist referral to assess eligibility for a risk reducing agent. 2. If overall lifetime risk for the development of breast cancer is 20% or higher, the patient may qualify for future screening with alternating mammogram and breast MRI. [facility], , 06/06/2024 6:04 PM. Electronically signed and approved by: Tyrell Myrick M.D. Radiologist
== END | disposition home or self-care (01) ==
LOC: RADMAMWWP 09:18
PROVIDERS: ATTEND Family Medicine
DX: Z12.31 Encounter for screening mammogram for malignant neoplasm of breast (principal); R92.333 Mammographic heterogeneous density, bilateral breasts; Z78.0 Asymptomatic menopausal state; Z80.3 Family history of malignant neoplasm of breast
CPT/HCPCS: 77063; 77067